=== PATIENT | female | born 1955 | race African-American/Black ===

== ENCOUNTER 2019-12-08 20:26 | Emergency (ER) | payer SELFPAY ==
--- NOTE | 2019-12-08 23:03 | ER Document Report ---
HPI - HPI Time Seen by Provider: 12/08/19 23:01 Notes: 64-year-old female patient with history of stroke presenting to the emergency department requesting Titus catheter removal. Patient [id number] accompanies her to the ED. She states they just drove in from [place], the Titus was place d due to the long car ride. Their doctor in [place] told him to come to the emergency room to have the Titus removed. Patient is moving here permanently. They are also requesting recommendation for primary care provider. Patient denies any acute complaints today. States she is feeling well. - ROS Systems Reviewed and Negative: Yes All other systems reviewed and negative Past Medical History - General Information source: Patient - Social History Smoking Status: Never Smoker Frequency of alcohol use: None Drug Abuse: None Family History: Reviewed & Not Pertinent Vertical Provider Document - CONSTITUTIONAL Notes: PHYSICAL EXAMINATION: GENERAL: Well-appearing, well-nourished and in no acute distress. HEAD: Atraumatic, normocephalic. EYES: Pupils equal round extraocular movements intact, conjunctiva are normal. ENT: Nares patent NECK: Normal range of motion LUNGS: No respiratory distress Musculoskeletal: Normal range of motion NEUROLOGICAL: Normal speech. PSYCH: Normal mood, normal affect. SKIN: Warm, Dry, normal turgor, no rashes or lesions noted. Course - Re-evaluation Re-evalutation: Patient appears well, nontoxic. She is here for Titus catheter removal. The catheter was placed for a long distance transport due to patient's immobility issues. The Titus catheter will be removed at this time. Recommendations were made for primary care providers in the local area. ED return precautions discussed. - Vital Signs Vital signs: Temp Pulse Resp BP Pulse Ox 98.2 F 115 H 20 145/100 H 94 12/08/19 21:01 12/08/19 21:01 12/08/19 21:01 12/08/19 21:01 12/08/19 21:01 Discharge - Discharge Clinical Impression: Encounter for Titus catheter removal Condition: Stable Disposition: HOME, SELF-CARE Additional Instructions: Please call Wednesday to establish care with a primary care provider. Return to the emergency department with any new or worsening concerns. Referrals: OSEI CHANEY MD [ACTIVE STAFF] - Follow up as needed AARTI MORRISON MD [ACTIVE STAFF] - Follow up as needed
[2019-12-08 23:17] VITALS: BP 134/81
== END 2019-12-08 23:16 | disposition home or self-care (01) ==
LOC: ER 20:26
DX: Z46.6 Encounter for fitting and adjustment of urinary device (principal)
CPT/HCPCS: 99283

== ENCOUNTER 2019-12-20 19:53 | Observation (INO) | payer MEDICAID, MEDICARE ==
--- NOTE | 2019-12-20 20:21 | ER Document Report ---
ED Cardiac - General Chief Complaint: Chest Pain > 30 Stated Complaint: CHEST PAIN Time Seen by Provider: 12/20/19 20:18 Mode of Arrival: Ambulatory Information source: Patient Notes: Last ED visit Emergency Provider: SALMA CRUZ Date: 12/08/19 23:01 Initialization Date: 12/08/19 23:01 HPI - HPI Time Seen by Provider: 12/08/19 23:01 Notes: 64-year-old female patient with history of stroke presenting to the emergency department requesting Titus catheter removal. Patient [id number] accompanies her to the ED. She states they just drove in from [place], the Titus was placed due to the long car ride. Their doctor in [place] told him to come to the emergency room to have the Titus removed. Patient is moving here permanently. They are also requesting recommendation for primary care provider. Patient denies any acute complaints today. States she is feeling well. - ROS Systems Reviewed and Negative: Yes All other systems reviewed and negative Past Medical History - General Information source: Patient - Social History Smoking Status: Never Smoker Frequency of alcohol use: None Drug Abuse: None Family History: Reviewed & Not Pertinent Vertical Provider Document - CONSTITUTIONAL Notes: PHYSICAL EXAMINATION: GENERAL: Well-appearing, well-nourished and in no acute distress. HEAD: Atraumatic, normocephalic. EYES: Pupils equal round extraocular movements intact, conjunctiva are normal. ENT: Nares patent NECK: Normal range of motion LUNGS: No respiratory distress Musculoskeletal: Normal range of motion NEUROLOGICAL: Normal speech. PSYCH: Normal mood, normal affect. SKIN: Warm, Dry, normal turgor, no rashes or lesions noted. MY HISTORY 64-year-old black female arrives by EMS with chief complaint of chest pain which began around 1839 shortly after eating her supper which consisted of beans and chocolate pudding. Her chest pain was 5 out of 5 and was substernal which has migrated to epigastric area according to patient and nursing staff. Patient has left-sided weakness secondary to a CVA that occurred a few months prior leaving her with sensation to her left upper and lower extremities but no movement. Patient has full range of motion of her right arm and right leg. Patient reports she been without any blood thinner or any other medications since late last month when she moved from [place] to this area where she has been staying with her [id number]. Patient presents with tachycardia at 152 atrial fibrillation.. Patient denies any history of atrial fibrillation in the past. As a historian I suspect the patient presents with some lacking information. She had some wheezing shortly before supper and had a albuterol treatment which helped with her wheezing. She was clear to auscultation upon my initial exam at 2030 TRAVEL OUTSIDE OF THE [place] IN LAST 30 DAYS: No - HPI Patient complains to provider of: Chest pain, Chest tightness, Palpitations Use of: Other - albuterol Was the onset of pain: Sudden Chest pain location: Substernal Quality of pain: Moderate Severity now: Severe Pain level currently: 5 - Related Data Allergies/Adverse Reactions: baclofen Allergy (Verified 12/20/19 20:12) morphine Allergy (Verified 12/20/19 20:12) Past Medical History - General Information source: Patient - Social History Smoking Status: Former Smoker Cigarette use (# per day): No Chew tobacco use (# tins/day): No Smoking Education Provided: No Frequency of alcohol use: None Drug Abuse: None Lives with: Family Family History: Reviewed & Not Pertinent Patient has suicidal ideation: No Patient has homicidal ideation: No - Past Medical History Cardiac Medical History: Reports: Hx Atrial Fibrillation, Hx Hypertension Pulmonary Medical History: Reports: Hx Asthma Endocrine Medical History: Reports: Hx Diabetes Mellitus Type 2 Past Surgical History: Reports: Hx Neurologic Surgery - piece of right skull removed, Hx Tubal Ligation Review of Systems - Review of Systems Constitutional: See HPI, Weakness EENT: No symptoms reported Cardiovascular: See HPI, Chest pain, Palpitations, Heart racing Respiratory: See HPI, Wheezing Gastrointestinal: See HPI, Abdominal pain Genitourinary: No symptoms reported Female Genitourinary: No symptoms reported Musculoskeletal: No symptoms reported Skin: No symptoms reported Hematologic/Lymphatic: No symptoms reported Neurological/Psychological: No symptoms reported Physical Exam - Vital signs Vitals: Resp BP Pulse Ox 17 132/91 H 95 12/20/19 20:00 12/20/19 20:00 12/20/19 20:00 Interpretation: Tachycardic - General General appearance: Alert, Other - morbidly obese - HEENT Head: Normocephalic, Atraumatic Eyes: Normal Pupils: PERRL - Respiratory Respiratory status: No respiratory distress Chest status: Nontender Breath sounds: Normal Chest palpation: Normal - Cardiovascular Rhythm: Tachycardia Heart sounds: Normal auscultation Murmur: No - Abdominal Inspection: Normal Distension: No distension Bowel sounds: Normal Tenderness: Nontender Organomegaly: No organomegaly - Rectal Hemorrhoids: Other - deferred - Genitourinary Bimanuel exam: Other - deferred - Back Back: Normal, Nontender - Extremities General upper extremity: Nontender, Normal color, Normal temperature, Other - 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 No: Mimi's sign - Neurological Neuro grossly intact: Yes Cognition: Normal Orientation: AAOx4 Aletha Coma Scale Eye Opening: Spontaneous [place] Coma Scale Verbal: Oriented Aletha Coma Scale Motor: None - Left upper and left lower extremity with sensation but no range of motion limited motor with right upper extremity right lower extremity within normal limits good strength [place] Coma Scale Total: 10 Speech: Normal Motor strength normal: RUE, RLE. No: LUE, LLE Additional motor exam normals: Weakness Sensory: Normal - Psychological Associated symptoms: Normal affect, Normal mood - Skin Skin Temperature: Warm Skin Moisture: Dry Skin Color: Normal Course - Vital Signs Vital signs: Temp Pulse Resp BP Pulse Ox 97.3 F 18 154/89 H 95 12/20/19 20:10 12/20/19 21:46 12/20/19 21:46 12/20/19 21:46 - Laboratory Result Diagrams: 12/20/19 20:20 12/20/19 20:20 Laboratory results interpreted by me: 12/20/19 12/20/19 20:20 20:20 Hct 35.4 L RDW 17.5 H Potassium 3.4 L Glucose 132 H Creatine Kinase 23 L - Diagnostic Test Radiology reviewed: Reports reviewed - EKG Interpretation by Me EKG shows normal: Sinus rhythm Rate: Tachycardia - Heart rate ventricular 03 24- with atrial fibrillation and this was read by myself as well as the computer with the EKG. Rhythm: A.Fib Critical Care Note - Critical Care Note Comments: Patient's sister arrives with her medicine list which includes Tylenol albuterol aspirin Keflex Senokot vitamin D3 Singulair Protonix MiraLAX pravastatin sucralfate venlafaxine HCTZ metoprolol and she reports her diltiazem ER 180 per 24 hours" was stopped when she was discharged from hospital"; also patient has not on any other blood thinner except for aspirin. I advised patient and sister on selection of blood thinners she may use. I discussed with Dr Calderon at 2300 for consult.I had already spoken with Halle just prior. Discharge - Discharge Clinical Impression: Chest pain at rest Atrial fibrillation Qualifiers: Atrial fibrillation type: unspecified Qualified Code(s): I48.91 - Unspecified atrial fibrillation Condition: Good Disposition: ADMITTED INPATIENT Admitting Provider: Adrian (Hospitalist) Unit Admitted: Telemetry Additional Instructions: Follow-up with personal doctor and take your medicines as directed to include diltiazem ER 180/per 24 hours. Return to ER symptoms persist or return encourage fluids Prescriptions: Diltiazem HCl [Diltiazem ER] 180 mg PO DAILY #30 tab.er.24h
[2019-12-20] MEDS ORDERED: NORMAL SALINE 1000 ML 1,000 ML IV ONE (20:31)
[2019-12-20] MEDS ORDERED: DILTIAZEM HCL INJ 25 MG/5 ML VIAL IV ONE ×2 (20:32→22:49)
[2019-12-20] MEDS ORDERED: ENOXAPARIN SODIUM INJ 120 MG/0.8 ML DISP.SYRIN SUBCUT ONE (20:34)
[2019-12-20] MEDS ORDERED: ASPIRIN 81 MG TABLET, CHEWABLE PO ONE (20:35)
[2019-12-20 20:39] LABS: ABSOLUTE BASOPHILS # (AUTO) 0.1 10^3/uL (0.0-0.2); ABSOLUTE EOSINOPHILS # (AUTO) 0.6 10^3/uL (0.0-0.6); ABSOLUTE LYMPHOCYTES (AUTO) 3.9 10^3/uL (0.5-4.7); ABSOLUTE MONOCYTES (AUTO) 0.7 10^3/uL (0.1-1.4); ABSOLUTE NEUT (AUTO) 4.6 10^3/uL (1.7-8.2); BASOPHILS % (AUTO) 0.6 % (0-2); EOSINOPHILS % (AUTO) 5.7 % (0-6); HEMATOCRIT 35.4 % (36.0-47.0); LYMPHOCYTES % (AUTO) 40.1 % (13-45); MEAN CORPUSCULAR HEMOGLOBIN 28.4 pg (27.0-33.4); MEAN CORPUSCULAR HGB CONC 33.8 g/dL (32.0-36.0); MEAN CORPUSCULAR VOLUME 84 fl (80-97); MONOCYTES % (AUTO) 7.2 % (3-13); PLATELET COUNT 325 10^3/uL (150-450); RED BLOOD COUNT 4.22 10^6/uL (3.72-5.28); RED CELL DISTRIBUTION WIDTH 17.5 % (11.5-14.0); SEGMENTED NEUTROPHILS % (AUTO) 46.4 % (42-78); TOTAL CELLS COUNTED % (AUTO) 100 %; WHITE BLOOD COUNT 9.8 10^3/uL (4.0-10.5)
[2019-12-20 20:45] LABS: INTERNATIONAL RATION (INR) 1.05; PARTIAL THROMBOPLASTIN TIME 30.1 SEC (23.5-35.8); PROTHROMBIN TIME 13.9 SEC (11.4-15.4)
[2019-12-20 21:05] LABS: ALBUMIN 3.6 g/dL (3.5-5.0); ALKALINE PHOSPHATASE 95 U/L (38-126); ANION GAP 12 (5-19); ASPARTATE AMINO TRANSFERASE 27 U/L (14-36); BILIRUBIN,DIRECT 0.2 mg/dL (0.0-0.4); BILIRUBIN,TOTAL 0.4 mg/dL (0.2-1.3); BLOOD UREA NITROGEN 11 mg/dL (7-20); CALCIUM 9.4 mg/dL (8.4-10.2); CARBON DIOXIDE 28 mmol/L (22-30); CHLORIDE 98 mmol/L (98-107); CREATINE KINASE 23 U/L (30-135); GLUCOSE 132 mg/dL (75-110); POTASSIUM 3.4 mmol/L (3.6-5.0); TOTAL PROTEIN 7.1 g/dL (6.3-8.2)
[2019-12-20 21:17] LABS: CREATINE KINASE MB 0.32 ng/mL (<4.55)
[2019-12-20 21:21] LABS: TROPONIN I < 0.012 ng/mL
[2019-12-20] MEDS ORDERED: SIMETHICONE 80 MG TAB.CHEW PO ONE (21:32)
--- NOTE | 2019-12-20 21:37 | RADIOLOGY REPORT (SQ) ---
EXAM DESCRIPTION: XR CHEST 1 VIEW COMPLETED DATE/TME: 12/20/2019 20:22 CLINICAL HISTORY: 64 years, Female, cp COMPARISON: None. NUMBER OF VIEWS: One TECHNIQUE: Single frontal view of the chest was obtained portably LIMITATIONS: None. FINDINGS: Cardiac and mediastinal contours are normal. Lungs are clear. No pleural effusion or pneumothorax. IMPRESSION: No acute disease. copyright 2010 [employer] (formerly [employer] All Rights Reserved
--- NOTE | 2019-12-20 21:41 | RADIOLOGY REPORT (SQ) ---
CLINICAL INDICATION: abd pain. TECHNIQUE: 2 image(s) of the abdomen. Supine imaging COMPARISON: None. FINDINGS: A nonspecific gas pattern is identified. No evidence of high grade obstruction. No evidence of free air. Postsurgical change from tubal ligation. Mild hard stool right colon. IMPRESSION: No acute intra-abdominal process is identified.
[2019-12-20] MEDS ORDERED: DILTIAZEM HCL 180 MG CAPSULE.CR PO ONE (22:44)
[2019-12-20 22:58] LABS: APPEARANCE,URINE SLIGHTLY-CLOUDY; BILIRUBIN,URINE NEGATIVE (NEGATIVE); COLOR,URINE YELLOW; GLUCOSE, URINE NEGATIVE (NEGATIVE); KETONES,URINE NEGATIVE (NEGATIVE); LEUKOCYTE ESTERASE,URINE NEGATIVE (NEGATIVE); NITRITE,URINE NEGATIVE (NEGATIVE); PROTEIN,URINE NEGATIVE (NEGATIVE); URINE SPECIFIC GRAVITY 1.016; UROBILINOGEN,URINE NEGATIVE mg/dL (<2.0)
[2019-12-20] MEDS ORDERED: OXYCODONE-ACETAMINOPHEN 5-325 MG TABLET PO ONE (23:09)
[2019-12-21] MEDS ORDERED: DILTIAZEM HCL/D5W 125 MG/125 ML RTUINJ IV PRN ×2 (04:39→12:53)
[2019-12-21 05:53] LABS: INTERNATIONAL RATION (INR) 1.15; PROTHROMBIN TIME 14.9 SEC (11.4-15.4)
[2019-12-21 05:54] LABS: PARTIAL THROMBOPLASTIN TIME 36.2 SEC (23.5-35.8)
[2019-12-21 06:27] LABS: CREATINE KINASE < 20 U/L (30-135)
[2019-12-21 06:33] LABS: CREATINE KINASE MB 0.29 ng/mL (<4.55); NT PRO BNP 635 pg/mL (<125)
[2019-12-21 06:36] LABS: TROPONIN I < 0.012 ng/mL
[2019-12-21 06:38] LABS: FREE T4 (FREE THYROXINE) 1.47 ng/dL (0.78-2.19)
[2019-12-21 06:53] LABS: THYROID STIMULATING HORMONE 1.3 uIU/mL (0.47-4.68)
--- NOTE | 2019-12-21 08:50 | EKG REPORT ---
SEVERITY:- ABNORMAL ECG - ATRIAL FIBRILLATION, V-RATE 110-192 NONSPECIFIC T ABNORMALITIES, LATERAL LEADS : Confirmed by: Candy Felipe MD 21-Dec-2019 08:49:52
[2019-12-21] MEDS: ENOXAPARIN SODIUM INJ 40 MG/0.4 ML DISP.SYRIN SUBCUT SCH (10:12)
--- NOTE | 2019-12-21 10:59 | PDOC CONSULTATION ---
Consultation Consult Date: 12/21/19 Attending physician:: RAFA CANO JR Provider Consulted: ALISHA BAÑUELOS Consult reason:: Rapid a-fib History of Present Illness Admission Date/PCP: 12/20/19 23:30 History of Present Illness: YESENIA HIGGINS is a 64 year old female with history of stroke on 12/04/2019 secondary to right M1 occlusion initially treated with IV TPA followed by mechanical thrombectomy, complicated by cerebral edema and midline shift which was treated with decompressive hemicraniectomy on 12/05/2019, hypertension, hyperlipidemia, diabetes, asthma, arthritis, seasonal allergies, tobacco use but quit 5 months ago, paroxysmal atrial fibrillation who is consulted to our service for further evaluation and treatment of atrial fibrillation. The ingrid salas came to the emergency room by ambulance complaining of chest pain after eating supper. She describes her pain as sharp in nature, substernal in location, lasting approximately 10 minutes, with radiation to the epigastrium and she thought it was from reflux disease, associated with shortness of breath and without diaphoresis, palpitations, syncope or presyncope. In the emergency room she was found to be in rapid atrial fibrillation and was started on a Cardizem drip. This morning she continues to be at her baseline and denies new cardiac complaints. She denies recurrence of chest pain. Unfortunately she continues to be in rapid atrial fibrillation. Physical exam on 12/21/2019: GENERAL: Pleasant and conversational. Oriented x3 with normal mood. Not in acute distress. Well groomed and well developed. HEENT: Normocephalic, atraumatic. Pupils equal. Sclerae anicteric. Orop harynx moist. NECK: No JVD. No carotid bruits. LUNGS: Clear to auscultation bilaterally. Normal respiratory effort without the use of accessory muscles or intercostal retractions. CARDIOVASCULAR: Tachycardic, irregularly irregular rate and rhythm, normal S1 and S2 without murmurs, rubs, or gallops. PMI not displaced. ABDOMEN: No masses or tenderness to palpation. No bruit. No splenomegaly or hepatomegaly. No abdominal aorta bruit noted. EXTREMITIES: No edema, no cyanosis, no clubbing. +2 pulses femoral and pedal pulses bilaterally. SKIN: No lesions or rashes. MUSCULOSKELETAL: No chest tenderness to palpation. Past Medical History Cardiac Medical History: Reports: Atrial Fibrillation, Hypertension Pulmonary Medical History: Reports: Asthma Endocrine Medical History: Reports: Diabetes Mellitus Type 2 Psychiatric Medical History: Reports: Depression Past Surgical History Past Surgical History: Reports: Tubal Ligation Social History Lives with: Family Smoking Status: Former Smoker Cigarettes Packs Per Day: 0.5 Electronic Cigarette use?: Yes Number of Years Smokin Frequency of Alcohol Use: None Hx Recreational Drug Use: No Drugs: None Hx Prescription Drug Abuse: No Family History Family History: Reviewed & Not Pertinent Parental Family History Reviewed: Yes Children Family History Reviewed: Yes Sibling(s) Family History Reviewed.: Yes Medication/Allergy Home Medications: Diltiazem HCl [Diltiazem ER] 180 mg PO DAILY #30 tab.er.24h 12/20/19 Allergies/Adverse Reactions: baclofen Allergy (Verified 12/20/19 20:12) morphine Allergy (Verified 12/20/19 20:12) Physical Exam Vital Signs: Temp Pulse Resp BP Pulse Ox 98.2 F 104 H 28 H 123/68 97 12/21/19 04:13 12/21/19 04:13 12/21/19 04:13 12/21/19 04:13 12/21/19 04:13 Intake & Output 12/19/19 12/20/19 12/21/19 06:59 06:59 06:59 Intake Total 1000 Balance 1000 Weight 111.6 kg Results Laboratory Results: 12/20/19 20:20 12/20/19 20:20 12/20/19 12/20/19 12/20/19 20:20 20:20 22:44 WBC 9.8 RBC 4.22 Hgb 12.0 Hct 35.4 L MCV 84 MCH 28.4 MCHC 33.8 RDW 17.5 H Plt Count 325 Seg Neutrophils % 46.4 Sodium 137.8 Potassium 3.4 L Chloride 98 Carbon Dioxide 28 Anion Gap 12 BUN 11 Creatinine 0.71 Est GFR ( Amer) > 60 Glucose 132 H Calcium 9.4 Magnesium Total Bilirubin 0.4 AST 27 Alkaline Phosphatase 95 Total Protein 7.1 Albumin 3.6 Urine Color YELLOW Urine Appearance SLIGHTLY-CLOUDY Urine pH 5.0 Ur Specific Rover 1.016 Urine Protein NEGATIVE Urine Glucose (UA) NEGATIVE Urine Ketones NEGATIVE Urine Blood NEGATIVE Urine Nitrite NEGATIVE Ur Leukocyte Esterase NEGATIVE Urine WBC (Auto) 2 Urine RBC (Auto) 1 12/21/19 05:38 WBC RBC Hgb Hct MCV MCH MCHC RDW Plt Count Seg Neutrophils % Sodium Potassium Chloride Carbon Dioxide Anion Gap BUN Creatinine Est GFR ( Amer) Glucose Calcium Magnesium 1.6 Total Bilirubin AST Alkaline Phosphatase Total Protein Albumin Urine Color Urine Appearance Urine pH Ur Specific Rover Urine Protein Urine Glucose (UA) Urine Ketones Urine Blood Urine Nitrite Ur Leukocyte Esterase Urine WBC (Auto) Urine RBC (Auto) 12/20/19 12/20/19 12/20/19 20:20 20:20 23:27 Creatine Kinase 23 L CK-MB (CK-2) 0.32 Troponin I < 0.012 < 0.012 NT-Pro-B Natriuret Pep 12/21/19 12/21/19 05:38 05:38 Creatine Kinase < 20 L CK-MB (CK-2) 0.29 Troponin I < 0.012 NT-Pro-B Natriuret Pep 635 H Impressions: Chest X-Ray 12/20/19 20:22 IMPRESSION: No acute disease. copyright 2011 [employer]- All Rights Reserved KUB X-Ray 12/20/19 20:31 IMPRESSION: No acute intra-abdominal process is identified. 12/20/19 20:20 12/20/19 20:20 MCV 84 fl (80-97) 12/20/19 20:20 MCH 28.4 pg (27.0-33.4) 12/20/19 20:20 MCHC 33.8 g/dL (32.0-36.0) 12/20/19 20:20 RDW 17.5 % (11.5-14.0) H 12/20/19 20:20 Seg Neutrophils % 46.4 % (42-78) 12/20/19 20:20 Chloride 98 mmol/L (98-107) 12/20/19 20:20 Carbon Dioxide 28 mmol/L (22-30) 12/20/19 20:20 Anion Gap 12 (5-19) 12/20/19 20:20 Est GFR ( Amer) > 60 (>60) 12/20/19 20:20 Glucose 132 mg/dL (75-110) H 12/20/19 20:20 Calcium 9.4 mg/dL (8.4-10.2) 12/20/19 20:20 Magnesium 1.6 mg/dL (1.6-2.3) 12/21/19 05:38 Total Bilirubin 0.4 mg/dL (0.2-1.3) 12/20/19 20:20 AST 27 U/L (14-36) 12/20/19 20:20 Alkaline Phosphatase 95 U/L (38-126) 12/20/19 20:20 Total Protein 7.1 g/dL (6.3-8.2) 12/20/19 20:20 Albumin 3.6 g/dL (3.5-5.0) 12/20/19 20:20 Urine Color YELLOW 12/20/19 22:44 Urine Appearance SLIGHTLY-CLOUDY 12/20/19 22:44 Urine pH 5.0 (5.0-9.0) 12/20/19 22:44 Ur Specific Rover 1.016 12/20/19 22:44 Urine Protein NEGATIVE mg/dL (NEGATIVE) 12/20/19 22:44 Urine Glucose (UA) NEGATIVE mg/dL (NEGATIVE) 12/20/19 22:44 Urine Ketones NEGATIVE mg/dL (NEGATIVE) 12/20/19 22:44 Urine Blood NEGATIVE (NEGATIVE) 12/20/19 22:44 Urine Nitrite NEGATIVE (NEGATIVE) 12/20/19 22:44 Ur Leukocyte Esterase NEGATIVE (NEGATIVE) 12/20/19 22:44 Urine WBC (Auto) 2 /HPF 12/20/19 22:44 Urine RBC (Auto) 1 /HPF 12/20/19 22:44 12/20/19 12/20/19 12/20/19 20:20 20:20 23:27 Creatine Kinase 23 L CK-MB (CK-2) 0.32 Troponin I < 0.012 < 0.012 NT-Pro-B Natriuret Pep 12/21/19 12/21/19 05:38 05:38 Creatine Kinase < 20 L CK-MB (CK-2) 0.29 Troponin I < 0.012 NT-Pro-B Natriuret Pep 635 H Current Medication List Generic Name Dose Route Start Last Admin Trade Name Freq PRN Reason Stop Dose Admin Enoxaparin Sodium 40 mg 12/21/19 10:00 Lovenox Inj 40 Mg/0.4 Ml Disp.Syrin SUBCUT 01/20/20 09:59 DAILY NAEEM Diltiazem HCl 125 mg in 125 mls @ 0 mls/hr 12/21/19 04:39 12/21/19 05:17 Cardizem Rtu Inj 125 Mg-D5w 125 Ml Premix IV 01/20/20 04:38 5 mls/hr CONTINUOUS PRN 5 mls/hr THIS MED IS NOT "PRN" Administration Protocol Titrate Discontinued Medications Generic Name Dose Route Start Last Admin Trade Name Beth PRN Reason Stop Dose Admin Aspirin 324 mg 12/20/19 20:35 12/20/19 20:46 Aspirin 81 Mg Chewable Tablet PO 12/20/19 20:36 324 mg NOW ONE Administration Diltiazem HCl 5 mg 12/20/19 20:32 12/20/19 20:47 Cardizem Inj 25 Mg/5 Ml Vial IV 12/20/19 20:33 5 mg NOW ONE Administration Diltiazem HCl 180 mg 12/20/19 22:44 12/20/19 22:51 Cardizem Cd 180 Mg Capsule PO 12/20/19 22:45 Not Given NOW ONE Diltiazem HCl 10 mg 12/20/19 22:49 12/20/19 23:01 Cardizem Inj 25 Mg/5 Ml Vial IV 12/20/19 22:50 10 mg NOW ONE Administration Enoxaparin Sodium 120 mg 12/20/19 20:34 12/20/19 20:49 Lovenox Inj 120 Mg/0.8 Ml Disp.Syrin SUBCUT 12/20/19 20:35 120 mg NOW ONE Administration Sodium Chloride 1,000 mls @ 0 mls/hr 12/20/19 20:31 12/21/19 00:16 Nacl 0.9% 1000 Ml Iv Soln IV 12/20/19 20:32 Infused BOLUS ONE Infusion Wide Open Oxycodone/Acetaminophen 1 tab 12/20/19 23:09 12/20/19 23:32 Percocet 5-325 Mg Tablet PO 12/20/19 23:10 1 tab NOW ONE Administration Simethicone 160 mg 12/20/19 21:32 12/20/19 21:53 Mylicon 80 Mg Chewable Tablet PO 12/20/19 21:33 160 mg NOW ONE Administration Assessment & Plan - Diagnosis (1) Atrial fibrillation Qualifiers: Atrial fibrillation type: unspecified Qualified Code(s): I48.91 - Unspecified atrial fibrillation Is this a current diagnosis for this admission?: Yes Plan: The patient continues to be in rapid atrial fibrillation despite maximal doses of diltiazem IV. Given her cardiac history she would benefit more from a beta- dong at this point. She should be anticoagulated however when she was last evaluated in November 2019 due to her stroke she was not cleared for full anticoagulation. Recommendations: -Discontinue diltiazem drip. -Start Lopressor 50 mg p.o. every 6 hours. -Hold anticoagulation until cleared by neurology. -Restart outpatient medical regimen except diltiazem, modafinil. -DVT prophylaxis. -Echocardiogram. (2) Elevated brain natriuretic peptide (BNP) level Plan: Likely secondary to her atrial fibrillation. There is no clinical or physical exam evidence of heart failure. The patient is resting comfortably on her back without dyspnea. Her chest x-ray did not show evidence of heart failure. Recommendations: -Continue to follow clinically.
[2019-12-21] MEDS ORDERED: METOPROLOL TARTRATE 50 MG TABLET PO SCH (11:00)
[2019-12-21] MEDS: ASPIRIN 325 MG TABLET PO SCH (12:55)
[2019-12-21 16:14] LABS: CREATINE KINASE MB 0.34 ng/mL (<4.55)
[2019-12-21 16:20] LABS: TROPONIN I < 0.012 ng/mL
[2019-12-21] MEDS: METOPROLOL TARTRATE 50 MG TABLET PO SCH (18:03)
--- NOTE | 2019-12-21 20:35 | XCELERA REPORT ---
[address] [address] Transthoracic Echocardiogram Report Name: YESENIA HIGGINS Age: 64 yrs Gender: Female : 1955 Patient Status: Inpatient Patient Location: [address] [place] [address] Study Date: 12/21/2019 05:27 PM Height: 65 in Weight: 246 lb BSA: 2.2 m2 Procedure: A complete two-dimensional transthoracic echocardiogram was performed (2D, M-mode, spectral and color flow Doppler). The study was technically limited with all images being suboptimal in quality. The subcostal views were difficult to obtain and are suboptimal in quality. Reason For Study: Atrial fibrillation Ordering Physician: ALISHA BAÑUELOS Performed By: Gwen Andre Interpretation Summary The left ventricle is normal in size. Left ventricular systolic function is normal. The Ejection Fraction estimate is 60-65%. LV diastolic function could not be adequately assessed due to atrial fibrilation. The left ventricular wall motion is normal. There is no thrombus. Cannot r/o a small, inlet VSD with left to right shunt. Recommend OLLIE for better visualization and characterization. Mild MR, mild AI, mild TR, mild PI. No prior studies for comparison. MMode/2D Measurements & Calculations RVDd: 2.9 cm LVIDd: 5.2 cm FS: 44.2 % Ao root diam: 3.1 cm IVSd: 1.2 cm LVIDs: 2.9 cm EDV(Teich): Ao root area: 131.8 ml LVPWd: 1.1 cm 7.6 cm2 ESV(Teich): 32.9 mlLA dimension: 3.0 cm EF(Teich): 75.0 % LVLd ap4: 5.5 cm SV(MOD-sp4): EDV(MOD-sp4): 36.0 ml 54.0 ml LVLs ap4: 5.0 cm ESV(MOD-sp4): 18.0 ml EF(MOD-sp4): 66.7 % Doppler Measurements & Calculations MV E max shahnaz: MV P1/2t max shahnaz: Ao V2 max: AI max shahnaz: 107.0 cm/sec 116.7 cm/sec 101.4 cm/sec 349.9 cm/sec MV A max shahnaz: MV P1/2t: 62.6 msec Ao max PG: AI max P.0 cm/sec 4.1 mmHg 49.0 mmHg MVA(P1/2t): 3.5 cm2 MV E/A: 3.7 MV dec slope: AI dec slope: 546.5 cm/sec2 159.9 cm/sec2 MV dec time: AI P1/2t: 0.18 sec 640.9 msec LV V1 max PG: PA V2 max: PI end-d shahnaz: TR max shahnaz: 2.9 mmHg 86.4 cm/sec 162.9 cm/sec 246.1 cm/sec LV V1 max: PA max P.0 mmHg TR max P.9 cm/sec 24.2 mmHg AV P1/2t-pr_phl: MV P1/2t-pr_phl: 640.9 msec 62.6 msec Left Ventricle The left ventricle is normal in size. Left ventricular systolic function is normal. The Ejection Fraction estimate is 60-65%. LV diastolic function could not be adequately assessed due to atrial fibrilation. The left ventricular wall motion is normal. There is no thrombus. Cannot r/o a small, inlet VSD with left to right shunt. Recommend OLLIE for better visualization and characterization. Right Ventricle The right ventricle is normal in size, thickness and function. The right ventricular systolic function is normal. Atria The right atrium is normal. The left atrial size is normal. Mitral Valve The mitral valve is grossly normal. There is no evidence of mitral valve prolapse. There is no mitral valve stenosis. There is a mild amount of mitral regurgitation. Aortic Valve The aortic valve is grossly normal. There is no aortic valvular vegetation. There is no aortic valve stenosis. There is a mild amount of aortic regurgitation. Tricuspid Valve The tricuspid valve is not well visualized, but is grossly normal. There is no tricuspid valve prolapse. There is no tricuspid stenosis. There is a mild amount of tricuspid regurgitation. Pulmonic Valve The pulmonic valve is not well seen, but is grossly normal. There is no pulmonic valvular stenosis. There is a mild amount of pulmonic regurgitation. Effusions There is no pericardial effusion. There is no pleural effusion. : ALISHA BAÑUELOS, Alisha
[2019-12-21 21:44] LABS: CREATINE KINASE MB 0.37 ng/mL (<4.55)
[2019-12-21 21:48] LABS: TROPONIN I < 0.012 ng/mL
--- NOTE | 2019-12-21 22:17 | PDOC H&P ---
History of Present Illness Admission Date/PCP: 12/20/19 23:30 History of Present Illness: YESENIA HIGGINS is a 64 year old female, She has a history of stroke on 12/04/2019 she just relocated from [place] she had intravenous TPA, thrombectomy complicated by cerebral edema and midline shift this was treated subsequently with decompressive hemicraniotomy on 12/05/2019. She came to the e mergency room for evaluation of chest pain, palpitation, paroxysmal atrial fibrillation. Past Medical History Cardiac Medical History: Reports: Atrial Fibrillation, Hypertension Pulmonary Medical History: Reports: Asthma Neurological Medical History: Reports: Ischemic CVA Endocrine Medical History: Reports: Diabetes Mellitus Type 2 Psychiatric Medical History: Reports: Depression Past Surgical History Past Surgical History: Reports: Tubal Ligation Social History Lives with: Family Smoking Status: Former Smoker Cigarettes Packs Per Day: 0.5 Electronic Cigarette use?: Yes Number of Years Smokin Frequency of Alcohol Use: None Hx Recreational Drug Use: No Drugs: None Hx Prescription Drug Abuse: No Family History Family History: Reviewed & Not Pertinent Parental Family History Reviewed: Yes Children Family History Reviewed: Yes Sibling(s) Family History Reviewed.: Yes Medication/Allergy Home Medications: Acetaminophen [Tylenol 325 mg Tablet] 650 mg PO Q4HP PRN 12/21/19 Albuterol Sulfate [Ventolin Hfa 8 gm Mdi] 2 puff IH TID 12/21/19 Aspirin [Aspirin 325 mg Tablet] 325 mg PO DAILY 12/21/19 Cephalexin Monohydrate [Keflex 250 mg Capsule] 250 mg PO QID MDD FOR 7 DAYS 12/21/19 Hydrochlorothiazide [Hydrodiuril 25 mg Tablet] 12.5 mg PO DAILY 12/21/19 Metoprolol Tartrate [Lopressor 25 mg Tablet] 25 mg PO BID 12/21/19 Montelukast Sodium [Singulair 10 mg Tablet] 10 mg PO QHS 12/21/19 Pantoprazole Sodium [Protonix [address] Tablet] 40 mg PO QAM 12/21/19 Polyethylene Glycol 3350 [Miralax] 1 dose PO DAILY 12/21/19 Pravastatin Sodium 40 mg PO QHS 12/21/19 Sennosides/Docusate 8.6-50 mg [Senna Plus Tablet] 1 tab PO BID 12/21/19 Sucralfate [Carafate 1 gm Tablet] 1 gm PO QID 12/21/19 Venlafaxine HCl ER [Effexor Xr 75 mg Cap.sr] 75 mg PO DAILY 12/21/19 Allergies/Adverse Reactions: baclofen Allergy (Verified 12/20/19 20:12) morphine Allergy (Verified 12/20/19 20:12) Review of Systems Constitutional: ABSENT: chills, fever(s), headache(s), weight gain, weight loss Eyes: ABSENT: visual disturbances Ears: ABSENT: hearing changes Cardiovascular: PRESENT: chest pain, palpitations Respiratory: ABSENT: cough, hemoptysis Gastrointestinal: ABSENT: abdominal pain, constipation, diarrhea, hematemesis, hematochezia, nausea, vomiting Genitourinary: ABSENT: dysuria, hematuria Musculoskeletal: ABSENT: joint swelling Integumentary: ABSENT: rash, wounds Neurological: ABSENT: abnormal gait, abnormal speech, confusion, dizziness, focal weakness, syncope Psychiatric: ABSENT: anxiety, depression, homidical ideation, suicidal ideation Endocrine: ABSENT: cold intolerance, heat intolerance, menstrual abnormalities, polydipsia, polyuria Hematologic/Lymphatic: ABSENT: easy bleeding, easy bruising, lymphadenopathy Physical Exam Vital Signs: Temp Pulse Resp BP Pulse Ox 97.7 F 74 19 124/84 94 12/21/19 15:57 12/21/19 15:57 12/21/19 15:57 12/21/19 15:57 12/21/19 15:57 Intake & Output 12/20/19 12/21/19 12/22/19 06:59 06:59 06:59 Intake Total 1003 729 Balance 1003 729 Weight 111.6 kg General appearance: PRESENT: no acute distress Head exam: PRESENT: normocephalic, other - There is surgical scar on the left head Eye exam: PRESENT: PERRLA Mouth exam: PRESENT: moist, tongue midline Neck exam: PRESENT: full ROM Respiratory exam: PRESENT: clear to auscultation mey Cardiovascular exam: PRESENT: RRR, +S1, +S2 Vascular exam: PRESENT: normal capillary refill GI/Abdominal exam: PRESENT: normal bowel sounds, soft Rectal exam: PRESENT: deferred Neurological exam: PRESENT: alert, CN II-XII grossly intact Psychiatric exam: PRESENT: appropriate affect, normal mood Skin exam: PRESENT: dry, intact, warm Results Laboratory Results: 12/20/19 20:20 12/20/19 20:20 12/20/19 12/21/19 12/21/19 22:44 05:38 05:38 Magnesium 1.6 TSH 1.30 Free T4 1.47 Urine Color YELLOW Urine Appearance SLIGHTLY-CLOUDY Urine pH 5.0 Ur Specific [place] 1.016 Urine Protein NEGATIVE Urine Glucose (UA) NEGATIVE Urine Ketones NEGATIVE Urine Blood NEGATIVE Urine Nitrite NEGATIVE Ur Leukocyte Esterase NEGATIVE Urine WBC (Auto) 2 Urine RBC (Auto) 1 12/20/19 12/20/19 12/20/19 20:20 20:20 23:27 Creatine Kinase 23 L CK-MB (CK-2) 0.32 Troponin I < 0.012 < 0.012 NT-Pro-B Natriuret Pep 12/21/19 12/21/19 12/21/19 05:38 05:38 14:47 Creatine Kinase < 20 L < 20 L CK-MB (CK-2) 0.29 Troponin I < 0.012 NT-Pro-B Natriuret Pep 635 H 12/21/19 12/21/19 12/21/19 14:47 20:56 20:56 Creatine Kinase < 20 L CK-MB (CK-2) 0.34 0.37 Troponin I < 0.012 < 0.012 NT-Pro-B Natriuret Pep Impressions: Chest X-Ray 12/20/19 20:22 IMPRESSION: No acute disease. copyright 2010 [employer]- All Rights Reserved KUB X-Ray 12/20/19 20:31 IMPRESSION: No acute intra-abdominal process is identified. Assessment & Plan - Diagnosis (1) Paroxysmal atrial fibrillation with rapid ventricular response Is this a current diagnosis for this admission?: Yes Plan: Patient treated with Cardizem infusion, presently rate controlled, not presently on anticoagulation because of recent intracranial surgery, she is to return to [place] for completion of the procedure (2) Chest pain at rest Is this a current diagnosis for this admission?: Yes - Time Time Spent: Greater than 70 Minutes Medications reviewed and adjusted accordingly: Yes Anticipated Discharge Disposition: Home, Self Care Anticipated Discharge Timeframe: within 72 hours - Inpatient Certification Based on my medical assessment, after consideration of the patient's comorbidities, presenting symptoms, or acuity I expect that the services needed warrant INPATIENT care.: Yes I certify that my determination is in accordance with my understanding of Medicare's requirements for reasonable and necessary INPATIENT services [42 CFR 412.3e].: Yes
[2019-12-22] MEDS: METOPROLOL TARTRATE 50 MG TABLET PO SCH ×4 (00:06→18:12)
[2019-12-22] MEDS: ACETAMINOPHEN 325 MG TABLET PO PRN ×2 (00:59→09:49)
[2019-12-22 06:51] LABS: ABSOLUTE EOSINOPHILS # (AUTO) 0.5 10^3/uL (0.0-0.6); ABSOLUTE LYMPHOCYTES (AUTO) 2.2 10^3/uL (0.5-4.7); ABSOLUTE MONOCYTES (AUTO) 0.5 10^3/uL (0.1-1.4); ABSOLUTE NEUT (AUTO) 3.4 10^3/uL (1.7-8.2); BASOPHILS % (AUTO) 0.6 % (0-2); EOSINOPHILS % (AUTO) 8.1 % (0-6); HEMATOCRIT 34.6 % (36.0-47.0); HEMOGLOBIN 11.7 g/dL (12.0-15.5); LYMPHOCYTES % (AUTO) 32.7 % (13-45); MEAN CORPUSCULAR HEMOGLOBIN 28.4 pg (27.0-33.4); MEAN CORPUSCULAR HGB CONC 33.9 g/dL (32.0-36.0); MEAN CORPUSCULAR VOLUME 84 fl (80-97); PLATELET COUNT 286 10^3/uL (150-450); RED BLOOD COUNT 4.13 10^6/uL (3.72-5.28); RED CELL DISTRIBUTION WIDTH 17.4 % (11.5-14.0); SEGMENTED NEUTROPHILS % (AUTO) 50.6 % (42-78); TOTAL CELLS COUNTED % (AUTO) 100 %; WHITE BLOOD COUNT 6.7 10^3/uL (4.0-10.5)
[2019-12-22 07:12] LABS: ALBUMIN 3.3 g/dL (3.5-5.0); ALKALINE PHOSPHATASE 92 U/L (38-126); ANION GAP 9 (5-19); ASPARTATE AMINO TRANSFERASE 24 U/L (14-36); BILIRUBIN,DIRECT 0.2 mg/dL (0.0-0.4); BILIRUBIN,TOTAL 0.5 mg/dL (0.2-1.3); BLOOD UREA NITROGEN 11 mg/dL (7-20); CALCIUM 9.6 mg/dL (8.4-10.2); CARBON DIOXIDE 30 mmol/L (22-30); CHLORIDE 100 mmol/L (98-107); CHOLESTEROL 139.85 mg/dL (0-200); GLUCOSE 114 mg/dL (75-110); POTASSIUM 3.5 mmol/L (3.6-5.0); TOTAL PROTEIN 6.7 g/dL (6.3-8.2); TRIGLYCERIDES 173 mg/dL (<150)
[2019-12-22 07:22] LABS: DIRECT LDL 77 mg/dL (<100)
[2019-12-22 07:34] LABS: VLDL CHOLESTEROL 34.6 mg/dL (10-31)
[2019-12-22] MEDS: PANTOPRAZOLE SODIUM 40 MG TABLET.DR PO SCH (09:45)
[2019-12-22] MEDS: ENOXAPARIN SODIUM INJ 40 MG/0.4 ML DISP.SYRIN SUBCUT SCH (09:45)
[2019-12-22] MEDS: ASPIRIN 325 MG TABLET PO SCH (09:45)
[2019-12-22] MEDS: ALBUTEROL SULFATE HFA (90 MCG/PUFF) 8 GM MDI IH SCH ×3 (09:46→18:13)
--- NOTE | 2019-12-22 10:55 | PDOC PROGRESS REPORT ---
Subjective Progress Note for:: 12/22/19 Subjective:: YESENIA HIGGINS is a 64 year old female with history of stroke on 12/04/2019 secondary to right M1 occlusion initially treated with IV TPA followed by mechanical thrombectomy, complicated by cerebral edema and midline shift which was treated with decompressive hemicraniectomy on 12/05/2019, hypertension, hyperlipidemia, diabetes, asthma, arthritis, seasonal allergies, tobacco use but quit 5 months ago, paroxysmal atrial fibrillation who is consulted to our service for further evaluation and treatment of atrial fibrillation. The patient came to the emergency room by ambulance complaining of chest pain after eating supper. She describes her pain as sharp in nature, substernal in location, lasting approximately 10 minutes, with radiation to the epigastrium and she thought it was from reflux disease, associated with shortness of breath and without diaphoresis, palpitations, syncope or presyncope. In the emergency room she was found to be in rapid atrial fibrillation and was started on a Cardizem drip. This morning she continues to be at her baseline and denies new cardiac complaints. She denies recurrence of chest pain. Unfortunately she continues to be in rapid atrial fibrillation. 12/22/2019: The patient had an uneventful night and feels better this morning. Her blood pressure is now at goal. She has received 3 doses of Lopressor 50 mg p.o. with an improvement in her ventricular response. Her telemetry shows A. fib with a significantly improved ventricular response. Physical exam on 12/22/2019: GENERAL: Pleasant and conversational. Oriented x3 with normal mood. Not in acute distress. Well groomed and well developed. HEENT: Normocephalic, atraumatic. Pupils equal. Sclerae anicteric. Oropharynx moist. NECK: No JVD. No carotid bruits. LUNGS: Clear to auscultation bilaterally. Normal respiratory effort without the use of accessory muscles or intercostal retractions. CARDIOVASCULAR: Irregularly irregular rate and rhythm, normal S1 and S2 without murmurs, rubs, or gallops. PMI not displaced. ABDOMEN: No masses or tenderness to palpation. No bruit. No splenomegaly or hepatomegaly. No abdominal aorta bruit noted. EXTREMITIES: No edema, no cyanosis, no clubbing. +2 pulses femoral and pedal pulses bilaterally. SKIN: No lesions or rashes. MUSCULOSKELETAL: No chest tenderness to palpation. Cardiac studies: Echocardiogram on 12/21/2019: -EF 60 to 65%. -No wall motion abnormalities. -Possible inlet VSD. -Mild MR, mild AI, mild TR, mild PI. Reason For Visit: ATRIAL FIBRILLATION WITH RAPID VENTRICULAR RESPONS Physical Exam Vital Signs: Temp Pulse Resp BP Pulse Ox 98.0 F 95 22 H 102/66 96 12/22/19 04:04 12/22/19 04:04 12/22/19 04:04 12/22/19 04:04 12/22/19 04:04 Intake & Output 12/20/19 12/21/19 12/22/19 06:59 06:59 06:59 Intake Total 1003 1019 Balance 1003 1019 Weight 111.6 kg Results Laboratory Results: 12/20/19 20:20 12/20/19 20:20 12/21/19 05:38 TSH 1.30 Free T4 1.47 12/20/19 12/20/19 12/20/19 20:20 20:20 23:27 Creatine Kinase 23 L CK-MB (CK-2) 0.32 Troponin I < 0.012 < 0.012 NT-Pro-B Natriuret Pep 12/21/19 12/21/19 12/21/19 05:38 05:38 14:47 Creatine Kinase < 20 L < 20 L CK-MB (CK-2) 0.29 Troponin I < 0.012 NT-Pro-B Natriuret Pep 635 H 12/21/19 12/21/19 12/21/19 14:47 20:56 20:56 Creatine Kinase < 20 L CK-MB (CK-2) 0.34 0.37 Troponin I < 0.012 < 0.012 NT-Pro-B Natriuret Pep Impressions: Chest X-Ray 12/20/19 20:22 IMPRESSION: No acute disease. copyright 2010 [employer]- All Rights Reserved KUB X-Ray 12/20/19 20:31 IMPRESSION: No acute intra-abdominal process is identified. 12/20/19 20:20 12/20/19 20:20 MCV 84 fl (80-97) 12/20/19 20:20 MCH 28.4 pg (27.0-33.4) 12/20/19 20:20 MCHC 33.8 g/dL (32.0-36.0) 12/20/19 20:20 RDW 17.5 % (11.5-14.0) H 12/20/19 20:20 Seg Neutrophils % 46.4 % (42-78) 12/20/19 20:20 Chloride 98 mmol/L (98-107) 12/20/19 20:20 Carbon Dioxide 28 mmol/L (22-30) 12/20/19 20:20 Anion Gap 12 (5-19) 12/20/19 20:20 Est GFR ( Amer) > 60 (>60) 12/20/19 20:20 Glucose 132 mg/dL (75-110) H 12/20/19 20:20 Calcium 9.4 mg/dL (8.4-10.2) 12/20/19 20:20 Magnesium 1.6 mg/dL (1.6-2.3) 12/21/19 05:38 Total Bilirubin 0.4 mg/dL (0.2-1.3) 12/20/19 20:20 AST 27 U/L (14-36) 12/20/19 20:20 Alkaline Phosphatase 95 U/L (38-126) 12/20/19 20:20 Total Protein 7.1 g/dL (6.3-8.2) 12/20/19 20:20 Albumin 3.6 g/dL (3.5-5.0) 12/20/19 20:20 TSH 1.30 uIU/mL (0.47-4.68) 12/21/19 05:38 Free T4 1.47 ng/dL (0.78-2.19) 12/21/19 05:38 Urine Color YELLOW 12/20/19 22:44 Urine Appearance SLIGHTLY-CLOUDY 12/20/19 22:44 Urine pH 5.0 (5.0-9.0) 12/20/19 22:44 Ur Specific [place] 1.016 12/20/19 22:44 Urine Protein NEGATIVE mg/dL (NEGATIVE) 12/20/19 22:44 Urine Glucose (UA) NEGATIVE mg/dL (NEGATIVE) 12/20/19 22:44 Urine Ketones NEGATIVE mg/dL (NEGATIVE) 12/20/19 22:44 Urine Blood NEGATIVE (NEGATIVE) 12/20/19 22:44 Urine Nitrite NEGATIVE (NEGATIVE) 10/07/20 22:44 Ur Leukocyte Esterase NEGATIVE (NEGATIVE) 12/20/19 22:44 Urine WBC (Auto) 2 /HPF 12/20/19 22:44 Urine RBC (Auto) 1 /HPF 12/20/19 22:44 12/20/19 12/20/19 12/20/19 20:20 20:20 23:27 Creatine Kinase 23 L CK-MB (CK-2) 0.32 Troponin I < 0.012 < 0.012 NT-Pro-B Natriuret Pep 12/21/19 12/21/19 12/21/19 05:38 05:38 14:47 Creatine Kinase < 20 L < 20 L CK-MB (CK-2) 0.29 Troponin I < 0.012 NT-Pro-B Natriuret Pep 635 H 12/21/19 12/21/19 12/21/19 14:47 20:56 20:56 Creatine Kinase < 20 L CK-MB (CK-2) 0.34 0.37 Troponin I < 0.012 < 0.012 NT-Pro-B Natriuret Pep Current Medication List Generic Name Dose Route Start Last Admin Trade Name Freq PRN Reason Stop Dose Admin Acetaminophen 650 mg 12/22/19 00:41 12/22/19 00:59 Tylenol 325 Mg Tablet PO 01/21/20 00:40 650 mg Q4HP PRN Administration PAIN Albuterol 2 puff 12/22/19 10:00 Ventolin Hfa 8 Gm Mdi IH 01/21/20 09:59 TID NAEEM Aspirin 325 mg 12/21/19 11:00 12/21/19 12:55 Aspirin 325 Mg Tablet PO 01/20/20 10:59 325 mg DAILY NAEEM Administration Enoxaparin Sodium 40 mg 12/21/19 10:00 12/21/19 10:12 Lovenox Inj 40 Mg/0.4 Ml Disp.Syrin SUBCUT 01/20/20 09:59 40 mg DAILY NAEEM Administration Metoprolol Tartrate 50 mg 12/21/19 18:00 12/22/19 00:06 Lopressor 50 Mg Tablet PO 01/20/20 17:59 50 mg Q6 NAEEM Administration Pantoprazole Sodium 40 mg 12/22/19 08:[address] Tablet PO 01/21/20 07:59 QAM NAEEM Discontinued Medications Generic Name Dose Route Start Last Admin Trade Name Freq PRN Reason Stop Dose Admin Aspirin 324 mg 12/20/19 20:35 12/20/19 20:46 Aspirin 81 Mg Chewable Tablet PO 12/20/19 20:36 324 mg NOW ONE Administration Diltiazem HCl 5 mg 12/20/19 20:32 12/20/19 20:47 Cardizem Inj 25 Mg/5 Ml Vial IV 12/20/19 20:33 5 mg NOW ONE Administration Diltiazem HCl 180 mg 12/20/19 22:44 12/20/19 22:51 Cardizem Cd 180 Mg Capsule PO 12/20/19 22:45 Not Given NOW ONE Diltiazem HCl 10 mg 12/20/19 22:49 12/20/19 23:01 Cardizem Inj 25 Mg/5 Ml Vial IV 12/20/19 22:50 10 mg NOW ONE Administration Enoxaparin Sodium 120 mg 12/20/19 20:34 12/20/19 20:49 Lovenox Inj 120 Mg/0.8 Ml Disp.Syrin SUBCUT 12/20/19 20:35 120 mg NOW ONE Administration Sodium Chloride 1,000 mls @ 0 mls/hr 12/20/19 20:31 12/21/19 00:16 Nacl 0.9% 1000 Ml Iv Soln IV 12/20/19 20:32 Infused BOLUS ONE Infusion Wide Open Diltiazem HCl 125 mg in 125 mls @ 0 mls/hr 12/21/19 04:39 12/21/19 14:42 Cardizem Rtu Inj 125 Mg-D5w 125 Ml Premix IV 01/20/20 04:38 Infused CONTINUOUS PRN Titration THIS MED IS NOT "PRN" Protocol Titrate Diltiazem HCl 125 mg in 125 mls @ 0 mls/hr 12/21/19 12:53 12/21/19 14:42 Cardizem Rtu Inj 125 Mg-D5w 125 Ml Premix IV 12/21/19 23:59 0 mg/hr CONTINUOUS PRN 0 mls/hr THIS MED IS NOT "PRN" Titration Protocol Titrate Metoprolol Tartrate 50 mg 12/21/19 11:00 12/21/19 12:55 Lopressor 50 Mg Tablet PO 01/20/20 10:59 50 mg Q12 NAEEM Administration Oxycodone/Acetaminophen 1 tab 12/20/19 23:09 12/20/19 23:32 Percocet 5-325 Mg Tablet PO 12/20/19 23:10 1 tab NOW ONE Administration Simethicone 160 mg 12/20/19 21:32 12/20/19 21:53 Mylicon 80 Mg Chewable Tablet PO 12/20/19 21:33 160 mg NOW ONE Administration 12/22/19 06:08 12/22/19 06:08 MCV 84 fl (80-97) 12/22/19 06:08 MCH 28.4 pg (27.0-33.4) 12/22/19 06:08 MCHC 33.9 g/dL (32.0-36.0) 12/22/19 06:08 RDW 17.4 % (11.5-14.0) H 12/22/19 06:08 Seg Neutrophils % 50.6 % (42-78) 12/22/19 06:08 Chloride 100 mmol/L (98-107) 12/22/19 06:08 Chloride Cancelled 12/22/19 06:08 Carbon Dioxide 30 mmol/L (22-30) 12/22/19 06:08 Carbon Dioxide Cancelled 12/22/19 06:08 Anion Gap 9 (5-19) 12/22/19 06:08 Anion Gap Cancelled 12/22/19 06:08 Est GFR ( Amer) > 60 (>60) 12/22/19 06:08 Est GFR ( Amer) Cancelled 12/22/19 06:08 Est GFR (Non-Af Amer) Cancelled 12/22/19 06:08 Glucose 114 mg/dL (75-110) H 12/22/19 06:08 Glucose Cancelled 12/22/19 06:08 Calcium 9.6 mg/dL (8.4-10.2) 12/22/19 06:08 Calcium Cancelled 12/22/19 06:08 Magnesium 1.6 mg/dL (1.6-2.3) 12/21/19 05:38 Total Bilirubin 0.5 mg/dL (0.2-1.3) 12/22/19 06:08 AST 24 U/L (14-36) 12/22/19 06:08 Alkaline Phosphatase 92 U/L (38-126) 12/22/19 06:08 Total Protein 6.7 g/dL (6.3-8.2) 12/22/19 06:08 Albumin 3.3 g/dL (3.5-5.0) L 12/22/19 06:08 Triglycerides 173 mg/dL (<150) H 12/22/19 06:08 Cholesterol 139.85 mg/dL (0-200) 12/22/19 06:08 LDL Cholesterol Direct 77 mg/dL (<100) 12/22/19 06:08 VLDL Cholesterol 34.6 mg/dL (10-31) H 12/22/19 06:08 HDL Cholesterol 31 mg/dL (>40) L 12/22/19 06:08 TSH 1.30 uIU/mL (0.47-4.68) 12/21/19 05:38 Free T4 1.47 ng/dL (0.78-2.19) 12/21/19 05:38 Urine Color YELLOW 12/20/19 22:44 Urine Appearance SLIGHTLY-CLOUDY 12/20/19 22:44 Urine pH 5.0 (5.0-9.0) 12/20/19 22:44 Ur Specific [place] 1.016 12/20/19 22:44 Urine Protein NEGATIVE mg/dL (NEGATIVE) 12/20/19 22:44 Urine Glucose (UA) NEGATIVE mg/dL (NEGATIVE) 12/20/19 22:44 Urine Ketones NEGATIVE mg/dL (NEGATIVE) 12/20/19 22:44 Urine Blood NEGATIVE (NEGATIVE) 12/20/19 22:44 Urine Nitrite NEGATIVE (NEGATIVE) 12/20/19 22:44 Ur Leukocyte Esterase NEGATIVE (NEGATIVE) 12/20/19 22:44 Urine WBC (Auto) 2 /HPF 12/20/19 22:44 Urine RBC (Auto) 1 /HPF 12/20/19 22:44 12/20/19 22:44 Clean Catch Midstream Urine Culture - Final Mixed Skin. Possible Pathogen 12/20/19 12/20/19 12/20/19 20:20 20:20 23:27 Creatine Kinase 23 L CK-MB (CK-2) 0.32 Troponin I < 0.012 < 0.012 NT-Pro-B Natriuret Pep 12/21/19 12/21/19 12/21/19 05:38 05:38 14:47 Creatine Kinase < 20 L < 20 L CK-MB (CK-2) 0.29 Troponin I < 0.012 NT-Pro-B Natriuret Pep 635 H 12/21/19 12/21/19 12/21/19 14:47 20:56 20:56 Creatine Kinase < 20 L CK-MB (CK-2) 0.34 0.37 Troponin I < 0.012 < 0.012 NT-Pro-B Natriuret Pep 12/22/19 06:08 Creatine Kinase CK-MB (CK-2) Troponin I NT-Pro-B Natriuret Pep 604 H Assessment & Plan - Diagnosis (1) Atrial fibrillation Qualifiers: Atrial fibrillation type: unspecified Qualified Code(s): I48.91 - Unspecified atrial fibrillation Is this a current diagnosis for this admission?: Yes Plan: Her heart rate is improved that after receiving 3 doses of Lopressor 50 mg p.o. She continues to be asymptomatic with a significantly improved ventricular response. She is currently not anticoagulated as, in her last evaluated in November 2019, she was not cleared for full anticoagulation. Recommendations: -Continue with Lopressor 50 mg p.o. every 6 hours. -Hold anticoagulation until cleared by neurology. -We will consider outpatient ischemic assessment once the patient is improved. (2) Elevated brain natriuretic peptide (BNP) level Plan: Likely secondary to her atrial fibrillation. There is no clinical or physical exam evidence of heart failure. The patient is resting comfortably on her back without dyspnea. Her chest x-ray did not show evidence of heart failure. Recommendations: -Continue to follow clinically.
[2019-12-22] MEDS ORDERED: HYDROCHLOROTHIAZIDE 25 MG TABLET PO SCH (21:15)
[2019-12-22] MEDS ORDERED: ASPIRIN 325 MG TABLET PO SCH (21:15)
[2019-12-22] MEDS ORDERED: ALBUTEROL SULFATE HFA (90 MCG/PUFF) 8 GM MDI IH SCH (21:15)
[2019-12-22] MEDS ORDERED: ACETAMINOPHEN 325 MG TABLET PO PRN (21:15)
[2019-12-22] MEDS ORDERED: POLYETHYLENE GLYCOL PO SCH (21:30)
[2019-12-22] MEDS ORDERED: METOPROLOL TARTRATE 25 MG TABLET PO SCH (21:30)
--- NOTE | 2019-12-22 21:33 | PDOC PROGRESS REPORT ---
Subjective Progress Note for:: 12/22/19 Subjective:: Patient seen by the bedside presently ruled out for acute [place], she was seen by the cardiology hopefully discharge home tomorrow Reason For Visit: ATRIAL FIBRILLATION WITH RAPID VENTRICULAR RESPONS Physical Exam Vital Signs: Temp Pulse Resp BP Pulse Ox 98.0 F 95 19 115/83 95 12/22/19 16:15 12/22/19 16:15 12/22/19 16:15 12/22/19 16:15 12/22/19 16:15 Intake & Output 12/21/19 12/22/19 12/23/19 06:59 06:59 06:59 Intake Total 1003 1219 1216 Balance 1003 1219 1216 Weight 111.6 kg 116.1 kg General appearance: PRESENT: no acute distress Eye exam: PRESENT: PERRLA Respiratory exam: PRESENT: clear to auscultation mey Cardiovascular exam: PRESENT: +S1, +S2 Results Laboratory Results: 12/22/19 06:08 12/22/19 06:08 12/22/19 12/22/19 12/22/19 06:08 06:08 06:08 WBC 6.7 RBC 4.13 Hgb 11.7 L Hct 34.6 L MCV 84 MCH 28.4 MCHC 33.9 RDW 17.4 H Plt Count 286 Seg Neutrophils % 50.6 Sodium 138.6 Cancelled Potassium 3.5 L Cancelled Chloride 100 Cancelled Carbon Dioxide 30 Cancelled Anion Gap 9 Cancelled BUN 11 Cancelled Creatinine 0.64 Cancelled Est GFR ( Amer) > 60 Cancelled Est GFR (Non-Af Amer) Cancelled Glucose 114 H Cancelled Calcium 9.6 Cancelled Total Bilirubin 0.5 AST 24 Alkaline Phosphatase 92 Total Protein 6.7 Albumin 3.3 L Triglycerides 173 H Cholesterol 139.85 LDL Cholesterol Direct 77 VLDL Cholesterol 34.6 H HDL Cholesterol 31 L 12/20/19 22:44 Clean Catch Midstream Urine Culture - Final Mixed Skin. Possible Pathogen 12/20/19 12/20/19 12/20/19 20:20 20:20 23:27 Creatine Kinase 23 L CK-MB (CK-2) 0.32 Troponin I < 0.012 < 0.012 NT-Pro-B Natriuret Pep 12/21/19 12/21/19 12/21/19 05:38 05:38 14:47 Creatine Kinase < 20 L < 20 L CK-MB (CK-2) 0.29 Troponin I < 0.012 NT-Pro-B Natriuret Pep 635 H 12/21/19 12/21/19 12/21/19 14:47 20:56 20:56 Creatine Kinase < 20 L CK-MB (CK-2) 0.34 0.37 Troponin I < 0.012 < 0.012 NT-Pro-B Natriuret Pep 12/22/19 06:08 Creatine Kinase CK-MB (CK-2) Troponin I NT-Pro-B Natriuret Pep 604 H Impressions: Chest X-Ray 12/20/19 20:22 IMPRESSION: No acute disease. copyright 2011 [email or web address]- All Rights Reserved KUB X-Ray 12/20/19 20:31 IMPRESSION: No acute intra-abdominal process is identified. Assessment & Plan - Diagnosis (1) Paroxysmal atrial fibrillation with rapid ventricular response Is this a current diagnosis for this admission?: Yes (2) Chest pain at rest Is this a current diagnosis for this admission?: Yes - Time Time Spent with patient: 25-34 minutes Level of Care: IMCU Medications reviewed and adjusted accordingly: Yes Anticipated discharge: Home Anticipated DC Timeframe: within 36 hours
[2019-12-22] MEDS ORDERED: MONTELUKAST SODIUM 10 MG TABLET PO SCH (22:00)
[2019-12-22] MEDS ORDERED: ATORVASTATIN CALCIUM 10 MG TABLET PO SCH (22:00)
[2019-12-22] MEDS ORDERED: (PENDING PHARMACY ID) (Pravastatin Sodium [Pravastatin Sodium] 40 MG) PO SCH (22:00)
[2019-12-22] MEDS: VENLAFAXINE HCL 75 MG CAP.SR.24H PO SCH (22:01)
[2019-12-22] MEDS: POLYETHYLENE GLYCOL 3350 POWDER 17 GM/1 PACKET PO SCH (22:01)
[2019-12-22] MEDS: SENNOSIDES/DOCUSATE 8.6-50 MG 1 EACH TABLET PO SCH (22:01)
[2019-12-22] MEDS: HYDROCHLOROTHIAZIDE 12.5 MG TABLET PO SCH (22:01)
[2019-12-22] MEDS: SUCRALFATE 1 GM TABLET PO SCH (22:01)
[2019-12-23] MEDS: METOPROLOL TARTRATE 50 MG TABLET PO SCH ×2 (01:36→06:17)
[2019-12-23] MEDS: CEPHALEXIN 250 MG CAPSULE PO SCH ×3 (01:36→15:02)
[2019-12-23 06:46] LABS: ABSOLUTE BASOPHILS # (AUTO) 0.1 10^3/uL (0.0-0.2); ABSOLUTE EOSINOPHILS # (AUTO) 0.4 10^3/uL (0.0-0.6); ABSOLUTE MONOCYTES (AUTO) 0.6 10^3/uL (0.1-1.4); ABSOLUTE NEUT (AUTO) 3.7 10^3/uL (1.7-8.2); BASOPHILS % (AUTO) 1.1 % (0-2); EOSINOPHILS % (AUTO) 6.5 % (0-6); HEMOGLOBIN 11.5 g/dL (12.0-15.5); LYMPHOCYTES % (AUTO) 29.6 % (13-45); MEAN CORPUSCULAR HEMOGLOBIN 28.3 pg (27.0-33.4); MEAN CORPUSCULAR HGB CONC 33.9 g/dL (32.0-36.0); MEAN CORPUSCULAR VOLUME 83 fl (80-97); MONOCYTES % (AUTO) 8.3 % (3-13); PLATELET COUNT 297 10^3/uL (150-450); RED BLOOD COUNT 4.07 10^6/uL (3.72-5.28); RED CELL DISTRIBUTION WIDTH 17.2 % (11.5-14.0); SEGMENTED NEUTROPHILS % (AUTO) 54.5 % (42-78); TOTAL CELLS COUNTED % (AUTO) 100 %; WHITE BLOOD COUNT 6.7 10^3/uL (4.0-10.5)
--- NOTE | 2019-12-23 07:46 | PDOC PROGRESS REPORT ---
Subjective Progress Note for:: 12/23/19 Subjective:: YESENIA HIGGINS is a 64 year old female with history of stroke on 12/04/2019 secondary to right M1 occlusion initially treated with IV TPA followed by mechanical thrombectomy, complicated by cerebral edema and midline shift which was treated with decompressive hemicraniectomy on 12/05/2019, hypertension, hyperlipidemia, diabetes, asthma, arthritis, seasonal allergies, tobacco use but quit 5 months ago, paroxysmal atrial fibrillation who is consulted to our service for further evaluation and treatment of atrial fibrillation. The patient came to the emergency room by ambulance complaining of chest pain after eating supper. She describes her pain as sharp in nature, substernal in location, lasting approximately 10 minutes, with radiation to the epigastrium and she thought it was from reflux disease, associated with shortness of breath and without diaphoresis, palpitations, syncope or presyncope. In the emergency room she was found to be in rapid atrial fibrillation and was started on a Cardizem drip. This morning she continues to be at her baseline and denies new cardiac complaints. She denies recurrence of chest pain. Unfortunately she continues to be in rapid atrial fibrillation. 12/23/2019: The patient had an uneventful night from the cardiovascular standpoint however she is now unable to swallow for unclear reasons to me. Her blood pressure continues to be at goal. Her telemetry shows atrial fibrillation with a significantly improved heart rate however there are now episodes of severe bradycardia as well as transient episodes of rapid ventricular response consistent with sick sinus syndrome. Physical exam on 12/23/2019: GENERAL: Oriented x3 with normal mood. Not in acute distress. Well groomed and well developed. The patient is noted to have her medications in her mouth but unable to swallow. HEENT: Normocephalic, atraumatic. Pupils equal. Sclerae anicteric. Oropharynx moist. NECK: No JVD. No carotid bruits. LUNGS: Clear to auscultation bilaterally. Normal respiratory effort without the use of accessory muscles or intercostal retractions. CARDIOVASCULAR: Irregularly irregular rate and rhythm without murmurs, rubs, or gallops. PMI not displaced. ABDOMEN: No masses or tenderness to palpation. No bruit. No splenomegaly or hepatomegaly. No abdominal aorta bruit noted. EXTREMITIES: Trace pitting edema bilaterally, no cyanosis, no clubbing. +2 pulses femoral and pedal pulses bilaterally. SKIN: No lesions or rashes. MUSCULOSKELETAL: No chest tenderness to palpation. Cardiac studies: Echocardiogram on 12/21/2019: -EF 60 to 65%. -No wall motion abnormalities. -Possible inlet VSD. -Mild MR, mild AI, mild TR, mild PI. Reason For Visit: ATRIAL FIBRILLATION WITH RAPID VENTRICULAR RESPONS Physical Exam Vital Signs: Temp Pulse Resp BP Pulse Ox 98.2 F 111 H 18 96/56 L 94 12/23/19 04:04 12/23/19 04:04 12/23/19 04:04 12/23/19 04:04 12/23/19 04:04 Intake & Output 12/21/19 12/22/19 12/23/19 06:59 06:59 06:59 Intake Total 1003 1219 1266 Balance 1003 1219 1266 Weight 111.6 kg 116.1 kg Results Laboratory Results: 12/22/19 06:08 12/22/19 06:08 12/22/19 12/22/19 12/22/19 06:08 06:08 06:08 WBC 6.7 RBC 4.13 Hgb 11.7 L Hct 34.6 L MCV 84 MCH 28.4 MCHC 33.9 RDW 17.4 H Plt Count 286 Seg Neutrophils % 50.6 Sodium 138.6 Cancelled Potassium 3.5 L Cancelled Chloride 100 Cancelled Carbon Dioxide 30 Cancelled Anion Gap 9 Cancelled BUN 11 Cancelled Creatinine 0.64 Cancelled Est GFR ( Amer) > 60 Cancelled Est GFR (Non-Af Amer) Cancelled Glucose 114 H Cancelled Calcium 9.6 Cancelled Total Bilirubin 0.5 AST 24 Alkaline Phosphatase 92 Total Protein 6.7 Albumin 3.3 L Triglycerides 173 H Cholesterol 139.85 LDL Cholesterol Direct 77 VLDL Cholesterol 34.6 H HDL Cholesterol 31 L 12/20/19 22:44 Clean Catch Midstream Urine Culture - Final Mixed Skin. Possible Pathogen 12/20/19 12/20/19 12/20/19 20:20 20:20 23:27 Creatine Kinase 23 L CK-MB (CK-2) 0.32 Troponin I < 0.012 < 0.012 NT-Pro-B Natriuret Pep 12/21/19 12/21/19 12/21/19 05:38 05:38 14:47 Creatine Kinase < 20 L < 20 L CK-MB (CK-2) 0.29 Troponin I < 0.012 NT-Pro-B Natriuret Pep 635 H 12/21/19 12/21/19 12/21/19 14:47 20:56 20:56 Creatine Kinase < 20 L CK-MB (CK-2) 0.34 0.37 Troponin I < 0.012 < 0.012 NT-Pro-B Natriuret Pep 12/22/19 06:08 Creatine Kinase CK-MB (CK-2) Troponin I NT-Pro-B Natriuret Pep 604 H Impressions: Chest X-Ray 12/20/19 20:22 IMPRESSION: No acute disease. copyright 2010 [employer]- All Rights Reserved KUB X-Ray 12/20/19 20:31 IMPRESSION: No acute intra-abdominal process is identified. 12/22/19 06:08 12/22/19 06:08 MCV 84 fl (80-97) 12/22/19 06:08 MCH 28.4 pg (27.0-33.4) 12/22/19 06:08 MCHC 33.9 g/dL (32.0-36.0) 12/22/19 06:08 RDW 17.4 % (11.5-14.0) H 12/22/19 06:08 Seg Neutrophils % 50.6 % (42-78) 12/22/19 06:08 Chloride 100 mmol/L (98-107) 12/22/19 06:08 Chloride Cancelled 12/22/19 06:08 Carbon Dioxide 30 mmol/L (22-30) 12/22/19 06:08 Carbon Dioxide Cancelled 12/22/19 06:08 Anion Gap 9 (5-19) 12/22/19 06:08 Anion Gap Cancelled 12/22/19 06:08 Est GFR ( Amer) > 60 (>60) 12/22/19 06:08 Est GFR ( Amer) Cancelled 12/22/19 06:08 Est GFR (Non-Af Amer) Cancelled 12/22/19 06:08 Glucose 114 mg/dL (75-110) H 12/22/19 06:08 Glucose Cancelled 12/22/19 06:08 Calcium 9.6 mg/dL (8.4-10.2) 12/22/19 06:08 Calcium Cancelled 12/22/19 06:08 Magnesium 1.6 mg/dL (1.6-2.3) 12/21/19 05:38 Total Bilirubin 0.5 mg/dL (0.2-1.3) 12/22/19 06:08 AST 24 U/L (14-36) 12/22/19 06:08 Alkaline Phosphatase 92 U/L (38-126) 12/22/19 06:08 Total Protein 6.7 g/dL (6.3-8.2) 12/22/19 06:08 Albumin 3.3 g/dL (3.5-5.0) L 12/22/19 06:08 Triglycerides 173 mg/dL (<150) H 12/22/19 06:08 Cholesterol 139.85 mg/dL (0-200) 12/22/19 06:08 LDL Cholesterol Direct 77 mg/dL (<100) 12/22/19 06:08 VLDL Cholesterol 34.6 mg/dL (10-31) H 12/22/19 06:08 HDL Cholesterol 31 mg/dL (>40) L 12/22/19 06:08 TSH 1.30 uIU/mL (0.47-4.68) 12/21/19 05:38 Free T4 1.47 ng/dL (0.78-2.19) 12/21/19 05:38 Urine Color YELLOW 12/20/19 22:44 Urine Appearance SLIGHTLY-CLOUDY 12/20/19 22:44 Urine pH 5.0 (5.0-9.0) 12/20/19 22:44 Ur Specific [place] 1.016 12/20/19 22:44 Urine Protein NEGATIVE mg/dL (NEGATIVE) 12/20/19 22:44 Urine Glucose (UA) NEGATIVE mg/dL (NEGATIVE) 12/20/19 22:44 Urine Ketones NEGATIVE mg/dL (NEGATIVE) 12/20/19 22:44 Urine Blood NEGATIVE (NEGATIVE) 12/20/19 22:44 Urine Nitrite NEGATIVE (NEGATIVE) 12/20/19 22:44 Ur Leukocyte Esterase NEGATIVE (NEGATIVE) 12/20/19 22:44 Urine WBC (Auto) 2 /HPF 12/20/19 22:44 Urine RBC (Auto) 1 /HPF 12/20/19 22:44 12/20/19 22:44 Clean Catch Midstream Urine Culture - Final Mixed Skin. Possible Pathogen 12/20/19 12/20/19 12/20/19 20:20 20:20 23:27 Creatine Kinase 23 L CK-MB (CK-2) 0.32 Troponin I < 0.012 < 0.012 NT-Pro-B Natriuret Pep 12/21/19 12/21/19 12/21/19 05:38 05:38 14:47 Creatine Kinase < 20 L < 20 L CK-MB (CK-2) 0.29 Troponin I < 0.012 NT-Pro-B Natriuret Pep 635 H 12/21/19 12/21/19 12/21/19 14:47 20:56 20:56 Creatine Kinase < 20 L CK-MB (CK-2) 0.34 0.37 Troponin I < 0.012 < 0.012 NT-Pro-B Natriuret Pep 12/22/19 06:08 Creatine Kinase CK-MB (CK-2) Troponin I NT-Pro-B Natriuret Pep 604 H Current Medication List Generic Name Dose Route Start Last Admin Trade Name Freq PRN Reason Stop Dose Admin Acetaminophen 650 mg 12/22/19 00:41 12/22/19 09:49 Tylenol 325 Mg Tablet PO 01/21/20 00:40 650 mg Q4HP PRN Administration PAIN Albuterol 2 puff 12/22/19 10:00 12/22/19 18:13 Ventolin Hfa 8 Gm Mdi IH 01/21/20 09:59 2 puff TID NAEEM Administration Aspirin 325 mg 12/21/19 11:00 12/22/19 09:45 Aspirin 325 Mg Tablet PO 01/20/20 10:59 325 mg DAILY NAEEM Administration Atorvastatin Calcium 10 mg 12/22/19 22:00 12/22/19 22:01 Lipitor 10 Mg Tablet PO 01/21/20 21:59 10 mg QHS NAEEM Administration Cephalexin HCl 250 mg 12/23/19 00:00 12/23/19 01:36 Keflex 250 Mg Capsule PO 12/30/19 00:00 250 mg Q6 NAEEM Administration Enoxaparin Sodium 40 mg 12/21/19 10:00 12/22/19 09:45 Lovenox Inj 40 Mg/0.4 Ml Disp.Syrin SUBCUT 01/20/20 09:59 40 mg DAILY NAEEM Administration Hydrochlorothiazide 12.5 mg 12/22/19 22:00 12/22/19 22:01 Hydrodiuril 12.5 Mg Tablet PO 01/21/20 21:59 12.5 mg DAILY NAEEM Administration Metoprolol Tartrate 50 mg 12/21/19 18:00 12/23/19 01:36 Lopressor 50 Mg Tablet PO 01/20/20 17:59 50 mg Q6 NAEEM Administration Montelukast Sodium 10 mg 12/22/19 22:00 12/22/19 22:01 Singulair 10 Mg Tablet PO 01/21/20 21:59 10 mg QHS NAEEM Administration Pantoprazole Sodium 40 mg 12/22/19 08:00 12/22/19 09:[address] Tablet PO 01/21/20 07:59 40 mg QAM NAEEM Administration Polyethylene Glycol 17 gm 12/22/19 22:00 12/22/19 22:01 Miralax Powder 17 Gm/Packet PO 01/21/20 21:59 17 gm DAILY NAEEM Administration Senna/Docusate Sodium 1 each 12/22/19 21:30 12/22/19 22:01 Senna Plus Tablet PO 01/21/20 21:29 1 each BID NAEEM Administration Sucralfate 1 gm 12/22/19 22:00 12/22/19 22:01 Carafate 1 Gm Tablet PO 01/21/20 21:59 1 gm QID NAEEM Administration Venlafaxine HCl 75 mg 12/22/19 22:00 12/22/19 22:01 Effexor Xr 75 Mg Cap.Sr PO 01/21/20 21:59 75 mg DAILY NAEEM Administration Discontinued Medications Generic Name Dose Route Start Last Admin Trade Name Freq PRN Reason Stop Dose Admin Acetaminophen 650 mg 12/22/19 21:15 Tylenol 325 Mg Tablet PO 01/21/20 21:14 Q4HP PRN FOR PAIN Albuterol 2 puff 12/22/19 21:15 12/23/19 01:44 Ventolin Hfa 8 Gm Mdi IH 01/21/20 21:14 Not Given TID NAEEM Aspirin 324 mg 12/20/19 20:35 12/20/19 20:46 Aspirin 81 Mg Chewable Tablet PO 12/20/19 20:36 324 mg NOW ONE Administration Aspirin 325 mg 12/22/19 21:15 12/23/19 01:44 Aspirin 325 Mg Tablet PO 01/21/20 21:14 Not Given DAILY NAEEM Diltiazem HCl 5 mg 12/20/19 20:32 12/20/19 20:47 Cardizem Inj 25 Mg/5 Ml Vial IV 12/20/19 20:33 5 mg NOW ONE Administration Diltiazem HCl 180 mg 12/20/19 22:44 12/20/19 22:51 Cardizem Cd 180 Mg Capsule PO 12/20/19 22:45 Not Given NOW ONE Diltiazem HCl 10 mg 12/20/19 22:49 12/20/19 23:01 Cardizem Inj 25 Mg/5 Ml Vial IV 12/20/19 22:50 10 mg NOW ONE Administration Enoxaparin Sodium 120 mg 12/20/19 20:34 12/20/19 20:49 Lovenox Inj 120 Mg/0.8 Ml Disp.Syrin SUBCUT 12/20/19 20:35 120 mg NOW ONE Administration Sodium Chloride 1,000 mls @ 0 mls/hr 12/20/19 20:31 12/21/19 00:16 Nacl 0.9% 1000 Ml Iv Soln IV 12/20/19 20:32 Infused BOLUS ONE Infusion Wide Open Diltiazem HCl 125 mg in 125 mls @ 0 mls/hr 12/21/19 04:39 12/21/19 14:42 Cardizem Rtu Inj 125 Mg-D5w 125 Ml Premix IV 01/20/20 04:38 Infused CONTINUOUS PRN Titration THIS MED IS NOT "PRN" Protocol Titrate Diltiazem HCl 125 mg in 125 mls @ 0 mls/hr 12/21/19 12:53 12/21/19 14:42 Cardizem Rtu Inj 125 Mg-D5w 125 Ml Premix IV 12/21/19 23:59 0 mg/hr CONTINUOUS PRN 0 mls/hr THIS MED IS NOT "PRN" Titration Protocol Titrate Metoprolol Tartrate 50 mg 12/21/19 11:00 12/21/19 12:55 Lopressor 50 Mg Tablet PO 01/20/20 10:59 50 mg Q12 NAEEM Administration Metoprolol Tartrate 25 mg 12/22/19 21:30 Lopressor 25 Mg Tablet PO 01/21/20 21:29 BID NAEEM Oxycodone/Acetaminophen 1 tab 12/20/19 23:09 12/20/19 23:32 Percocet 5-325 Mg Tablet PO 12/20/19 23:10 1 tab NOW ONE Administration Pantoprazole Sodium 40 mg 12/23/19 08:[address] Tablet PO 01/22/20 07:59 QAM NAEEM Simethicone 160 mg 12/20/19 21:32 12/20/19 21:53 Mylicon 80 Mg Chewable Tablet PO 12/20/19 21:33 160 mg NOW ONE Administration 12/23/19 06:20 12/22/19 06:08 MCV 83 fl (80-97) 12/23/19 06:20 MCH 28.3 pg (27.0-33.4) 12/23/19 06:20 MCHC 33.9 g/dL (32.0-36.0) 12/23/19 06:20 RDW 17.2 % (11.5-14.0) H 12/23/19 06:20 Seg Neutrophils % 54.5 % (42-78) 12/23/19 06:20 Chloride 100 mmol/L (98-107) 12/22/19 06:08 Chloride Cancelled 12/22/19 06:08 Carbon Dioxide 30 mmol/L (22-30) 12/22/19 06:08 Carbon Dioxide Cancelled 12/22/19 06:08 Anion Gap 9 (5-19) 12/22/19 06:08 Anion Gap Cancelled 12/22/19 06:08 Est GFR ( Amer) > 60 (>60) 12/22/19 06:08 Est GFR ( Amer) Cancelled 12/22/19 06:08 Est GFR (Non-Af Amer) Cancelled 12/22/19 06:08 Glucose 114 mg/dL (75-110) H 12/22/19 06:08 Glucose Cancelled 12/22/19 06:08 Calcium 9.6 mg/dL (8.4-10.2) 12/22/19 06:08 Calcium Cancelled 12/22/19 06:08 Magnesium 1.6 mg/dL (1.6-2.3) 12/21/19 05:38 Total Bilirubin 0.5 mg/dL (0.2-1.3) 12/22/19 06:08 AST 24 U/L (14-36) 12/22/19 06:08 Alkaline Phosphatase 92 U/L (38-126) 12/22/19 06:08 Total Protein 6.7 g/dL (6.3-8.2) 12/22/19 06:08 Albumin 3.3 g/dL (3.5-5.0) L 12/22/19 06:08 Triglycerides 173 mg/dL (<150) H 12/22/19 06:08 Cholesterol 139.85 mg/dL (0-200) 12/22/19 06:08 LDL Cholesterol Direct 77 mg/dL (<100) 12/22/19 06:08 VLDL Cholesterol 34.6 mg/dL (10-31) H 12/22/19 06:08 HDL Cholesterol 31 mg/dL (>40) L 12/22/19 06:08 TSH 1.30 uIU/mL (0.47-4.68) 12/21/19 05:38 Free T4 1.47 ng/dL (0.78-2.19) 12/21/19 05:38 Urine Color YELLOW 12/20/19 22:44 Urine Appearance SLIGHTLY-CLOUDY 12/20/19 22:44 Urine pH 5.0 (5.0-9.0) 12/20/19 22:44 Ur Specific [place] 1.016 12/20/19 22:44 Urine Protein NEGATIVE mg/dL (NEGATIVE) 12/20/19 22:44 Urine Glucose (UA) NEGATIVE mg/dL (NEGATIVE) 12/20/19 22:44 Urine Ketones NEGATIVE mg/dL (NEGATIVE) 12/20/19 22:44 Urine Blood NEGATIVE (NEGATIVE) 12/20/19 22:44 Urine Nitrite NEGATIVE (NEGATIVE) 12/20/19 22:44 Ur Leukocyte Esterase NEGATIVE (NEGATIVE) 12/20/19 22:44 Urine WBC (Auto) 2 /HPF 12/20/19 22:44 Urine RBC (Auto) 1 /HPF 12/20/19 22:44 12/20/19 22:44 Clean Catch Midstream Urine Culture - Final Mixed Skin. Possible Pathogen 12/20/19 12/20/19 12/20/19 20:20 20:20 23:27 Creatine Kinase 23 L CK-MB (CK-2) 0.32 Troponin I < 0.012 < 0.012 NT-Pro-B Natriuret Pep 12/21/19 12/21/19 12/21/19 05:38 05:38 14:47 Creatine Kinase < 20 L < 20 L CK-MB (CK-2) 0.29 Troponin I < 0.012 NT-Pro-B Natriuret Pep 635 H 12/21/19 12/21/19 12/21/19 14:47 20:56 20:56 Creatine Kinase < 20 L CK-MB (CK-2) 0.34 0.37 Troponin I < 0.012 < 0.012 NT-Pro-B Natriuret Pep 12/22/19 06:08 Creatine Kinase CK-MB (CK-2) Troponin I NT-Pro-B Natriuret Pep 604 H Assessment & Plan - Diagnosis (1) Atrial fibrillation Qualifiers: Atrial fibrillation type: unspecified Qualified Code(s): I48.91 - Unspecified atrial fibrillation Is this a current diagnosis for this admission?: Yes Plan: Her heart rate is significantly improved however she is noted to have intermittent bradycardia in the 40s with episodes of rapid ventricular response in the 180s consistent with sick sinus syndrome. The patient is noted to not been able to swallow any of her medicines this morning which is a new finding for her. Given her episodes of bradycardia and suspected sick sinus syndrome I will decrease her Lopressor to 50 mg twice daily and we will continue to follow her. She is currently not anticoagulated as, in her last evaluated in November 2019, she was not cleared for full anticoagulation. At this point the patient is deemed not a good candidate for further cardiovascular invasive procedures. Recommendations: -Change Lopressor to 50 mg twice daily. -Hold anticoagulation until cleared by neurology, primary hospitalist to contact her neurologist to address this issue. -We will continue to follow with you. (2) Elevated brain natriuretic peptide (BNP) level Plan: Likely secondary to her atrial fibrillation. There is no clinical or physical exam evidence of heart failure. The patient is resting comfortably on her back without dyspnea. Her chest x-ray did not show evidence of heart failure. Recommendations: -Continue to follow clinically. (3) Rule out sick sinus syndrome Is this a current diagnosis for this admission?: Yes Plan: The patient is noted to have both episodes of significant bradycardia as well as rapid ventricular response to her atrial fibrillation which is consistent with sick sinus syndrome. She had remained asymptomatic however her bradycardia have been moderate to severe at times therefore I will decrease her beta-dong dose by 50%. At this point she is not yet a candidate for invasive cardiac procedures. (4) Swallowing dysfunction Is this a current diagnosis for this admission?: Yes Plan: The patient was noted to have difficulty swallowing her medications this morning even when crushed in applesauce. As [id number] she was unable to swallow anything this morning, this is actually a new finding. Recommendations: -Further evaluation and treatment per hospitalist team.
[2019-12-23] MEDS ORDERED: PANTOPRAZOLE SODIUM 40 MG TABLET.DR PO SCH (08:00)
[2019-12-23] MEDS: ASPIRIN 325 MG TABLET PO SCH (09:23)
[2019-12-23] MEDS: POLYETHYLENE GLYCOL 3350 POWDER 17 GM/1 PACKET PO SCH (09:23)
[2019-12-23] MEDS: HYDROCHLOROTHIAZIDE 12.5 MG TABLET PO SCH (09:23)
[2019-12-23] MEDS: VENLAFAXINE HCL 75 MG CAP.SR.24H PO SCH (09:23)
[2019-12-23] MEDS: PANTOPRAZOLE SODIUM 40 MG TABLET.DR PO SCH (09:23)
[2019-12-23] MEDS: SUCRALFATE 1 GM TABLET PO SCH ×2 (09:23→15:02)
[2019-12-23] MEDS: SENNOSIDES/DOCUSATE 8.6-50 MG 1 EACH TABLET PO SCH (09:23)
[2019-12-23] MEDS: ENOXAPARIN SODIUM INJ 40 MG/0.4 ML DISP.SYRIN SUBCUT SCH (09:24)
[2019-12-23] MEDS: ALBUTEROL SULFATE HFA (90 MCG/PUFF) 8 GM MDI IH SCH ×2 (09:24→15:02)
--- NOTE | 2019-12-23 12:53 | PDOC DISCHARGE SUMMARY ---
Impression - Admit/DC Date/PCP Admission Date/Primary Care Provider: 12/20/19 23:30 Discharge Date: 12/23/19 - Discharge Diagnosis (1) Paroxysmal atrial fibrillation with rapid ventricular response Is this a current diagnosis for this admission?: Yes (2) Chest pain at rest Is this a current diagnosis for this admission?: Yes (3) Sick sinus syndrome Is this a current diagnosis for this admission?: Yes - Additional Information Home Medications: Acetaminophen [Tylenol 325 mg Tablet] 650 mg PO Q4HP PRN 12/21/19 Albuterol Sulfate [Ventolin Hfa 8 gm Mdi] 2 puff IH TID 12/21/19 Aspirin [Aspirin 325 mg Tablet] 325 mg PO DAILY 12/21/19 Hydrochlorothiazide [Hydrodiuril 25 mg Tablet] 12.5 mg PO DAILY 12/21/19 Metoprolol Tartrate [Lopressor 25 mg Tablet] 25 mg PO BID 12/21/19 Montelukast Sodium [Singulair 10 mg Tablet] 10 mg PO QHS 12/21/19 Pantoprazole Sodium [Protonix [address] Tablet] 40 mg PO QAM 12/21/19 Polyethylene Glycol 3350 [Miralax] 1 dose PO DAILY 12/21/19 Pravastatin Sodium 40 mg PO QHS 12/21/19 Sennosides/Docusate 8.6-50 mg [Senna Plus Tablet] 1 tab PO BID 12/21/19 Sucralfate [Carafate 1 gm Tablet] 1 gm PO QID 12/21/19 Venlafaxine HCl ER [Effexor Xr 75 mg Cap.sr] 75 mg PO DAILY 12/21/19 Acetaminophen [Tylenol 325 mg Tablet] 650 mg PO Q4HP PRN tablet 12/23/19 History of Present Illiness History of Present Illness: YESENIA HIGGINS is a 64 year old female, She has a history of stroke on 12/04/2019 she just relocated from [place] she had intravenous TPA, thrombectomy complicated by cerebral edema and midline shift this was treated subsequently with decompressive hemicraniotomy on 12/05/2019. She came to the emergency room for evaluation of chest pain, palpitation, paroxysmal atrial fibrillation. Hospital Course Hospital Course: Patient was admitted for evaluation and management of atrial fibrillation, and chest pain, she was treated with intravenous Cardizem infusion for rate control, she ruled out for acute TN with serial enzymes, she had episode of long pauses on telemetry strip, the combination of A. fib with long pauses suggesting sick sinus syndrome, she probably need a pacemaker. She has atrial fibrillation, she is not a candidate for long-term anticoagulation with Coumadin or the newer anticoagulant because she has a history of recent craniotomy due to cerebral edema following a stroke. She supposed to return to [place] in February for replacement of the skull tissue. She was seen by Dr. Calderon cardiology, she be discharg home today Physical Exam Vital Signs: Temp Pulse Resp BP Pulse Ox 98.3 F 82 16 100/79 99 12/23/19 08:10 12/23/19 08:10 12/23/19 08:10 12/23/19 08:10 12/23/19 08:10 Intake & Output 12/22/19 12/23/19 12/24/19 06:59 06:59 06:59 Intake Total 1219 1366 Balance 1219 1366 Weight 116.1 kg 112.9 kg General appearance: PRESENT: no acute distress Eye exam: PRESENT: PERRLA Respiratory exam: PRESENT: clear to auscultation mey Cardiovascular exam: PRESENT: +S1, +S2 GI/Abdominal exam: PRESENT: soft Neurological exam: PRESENT: alert Results Laboratory Results: WBC 6.7 10^3/uL (4.0-10.5) 12/23/19 06:20 RBC 4.07 10^6/uL (3.72-5.28) 12/23/19 06:20 Hgb 11.5 g/dL (12.0-15.5) L 12/23/19 06:20 Hct 34.0 % (36.0-47.0) L 12/23/19 06:20 MCV 83 fl (80-97) 12/23/19 06:20 MCH 28.3 pg (27.0-33.4) 12/23/19 06:20 MCHC 33.9 g/dL (32.0-36.0) 12/23/19 06:20 RDW 17.2 % (11.5-14.0) H 12/23/19 06:20 Plt Count 297 10^3/uL (150-450) 12/23/19 06:20 Lymph % (Auto) 29.6 % (13-45) 12/23/19 06:20 [place] % (Auto) 8.3 % (3-13) 12/23/19 06:20 Eos % (Auto) 6.5 % (0-6) H 12/23/19 06:20 Baso % (Auto) 1.1 % (0-2) 12/23/19 06:20 Absolute Neuts (auto) 3.7 10^3/uL (1.7-8.2) 12/23/19 06:20 Absolute Lymphs (auto) 2.0 10^3/uL (0.5-4.7) 12/23/19 06:20 Absolute Monos (auto) 0.6 10^3/uL (0.1-1.4) 12/23/19 06:20 Absolute Eos (auto) 0.4 10^3/uL (0.0-0.6) 12/23/19 06:20 Absolute Basos (auto) 0.1 10^3/uL (0.0-0.2) 12/23/19 06:20 Seg Neutrophils % 54.5 % (42-78) 12/23/19 06:20 PT 14.9 SEC (11.4-15.4) 12/21/19 05:38 INR 1.15 12/21/19 05:38 APTT 36.2 SEC (23.5-35.8) H 12/21/19 05:38 Sodium 138.6 mmol/L (137-145) 12/22/19 06:08 Sodium Cancelled 12/22/19 06:08 Potassium 3.5 mmol/L (3.6-5.0) L 12/22/19 06:08 Potassium Cancelled 12/22/19 06:08 Chloride 100 mmol/L (98-107) 12/22/19 06:08 Chloride Cancelled 12/22/19 06:08 Carbon Dioxide 30 mmol/L (22-30) 12/22/19 06:08 Carbon Dioxide Cancelled 12/22/19 06:08 Anion Gap 9 (5-19) 12/22/19 06:08 Anion Gap Cancelled 12/22/19 06:08 BUN 11 mg/dL (7-20) 12/22/19 06:08 BUN Cancelled 12/22/19 06:08 Creatinine 0.64 mg/dL (0.52-1.25) 12/22/19 06:08 Creatinine Cancelled 12/22/19 06:08 Est GFR ( Amer) > 60 (>60) 12/22/19 06:08 Est GFR ( Amer) Cancelled 12/22/19 06:08 Est GFR (Non-Af Amer) Cancelled 12/22/19 06:08 Est GFR (MDRD) Non-Af > 60 (>60) 12/22/19 06:08 Est GFR (MDRD) Non-Af Cancelled 12/22/19 06:08 Glucose 114 mg/dL (75-110) H 12/22/19 06:08 Glucose Cancelled 12/22/19 06:08 Hemoglobin A1c % 5.4 % (4.7-6.0) 12/22/19 06:08 Calcium 9.6 mg/dL (8.4-10.2) 12/22/19 06:08 Calcium Cancelled 12/22/19 06:08 Magnesium 1.6 mg/dL (1.6-2.3) 12/21/19 05:38 Total Bilirubin 0.5 mg/dL (0.2-1.3) 12/22/19 06:08 Direct Bilirubin 0.2 mg/dL (0.0-0.4) 12/22/19 06:08 Neonat Total Bilirubin Not Reportable 12/22/19 06:08 Neonat Direct Bilirubin Not Reportable 12/22/19 06:08 Neonat Indirect Bili Not Reportable 12/22/19 06:08 AST 24 U/L (14-36) 12/22/19 06:08 ALT 13 U/L (<35) 12/22/19 06:08 Alkaline Phosphatase 92 U/L (38-126) 12/22/19 06:08 Creatine Kinase < 20 U/L (30-135) L 12/21/19 20:56 CK-MB (CK-2) 0.37 ng/mL (<4.55) 12/21/19 20:56 Troponin I < 0.012 ng/mL 12/21/19 20:56 NT-Pro-B Natriuret Pep 604 pg/mL (<125) H 12/22/19 06:08 Total Protein 6.7 g/dL (6.3-8.2) 12/22/19 06:08 Albumin 3.3 g/dL (3.5-5.0) L 12/22/19 06:08 Triglycerides 173 mg/dL (<150) H 12/22/19 06:08 Cholesterol 139.85 mg/dL (0-200) 12/22/19 06:08 LDL Cholesterol Direct 77 mg/dL (<100) 12/22/19 06:08 VLDL Cholesterol 34.6 mg/dL (10-31) H 12/22/19 06:08 HDL Cholesterol 31 mg/dL (>40) L 12/22/19 06:08 EGFR Cancelled 12/22/19 06:08 TSH 1.30 uIU/mL (0.47-4.68) 12/21/19 05:38 Free T4 1.47 ng/dL (0.78-2.19) 12/21/19 05:38 Urine Color YELLOW 12/20/19 22:44 Urine Appearance SLIGHTLY-CLOUDY 12/20/19 22:44 Urine pH 5.0 (5.0-9.0) 12/20/19 22:44 Ur Specific Gates 1.016 12/20/19 22:44 Urine Protein NEGATIVE mg/dL (NEGATIVE) 12/20/19 22:44 Urine Glucose (UA) NEGATIVE mg/dL (NEGATIVE) 12/20/19 22:44 Urine Ketones NEGATIVE mg/dL (NEGATIVE) 12/20/19 22:44 Urine Blood NEGATIVE (NEGATIVE) 12/20/19 22:44 Urine Nitrite NEGATIVE (NEGATIVE) 12/20/19 22:44 Urine Bilirubin NEGATIVE (NEGATIVE) 12/20/19 22:44 Urine Urobilinogen NEGATIVE mg/dL (<2.0) 12/20/19 22:44 Ur Leukocyte Esterase NEGATIVE (NEGATIVE) 12/20/19 22:44 Urine WBC (Auto) 2 /HPF 12/20/19 22:44 Urine RBC (Auto) 1 /HPF 12/20/19 22:44 U Hyaline Cast (Auto) 4 /LPF 12/20/19 22:44 Urine Bacteria (Auto) TRACE /HPF 12/20/19 22:44 Squamous Epi Cells Auto 6 /HPF 12/20/19 22:44 Urine Mucus (Auto) RARE /LPF 12/20/19 22:44 Urine Ascorbic Acid NEGATIVE (NEGATIVE) 12/20/19 22:44 12/20/19 12/20/19 12/21/19 20:20 23:27 05:38 CK-MB (CK-2) 0.32 0.29 Troponin I < 0.012 < 0.012 < 0.012 NT-Pro-B Natriuret Pep 635 H 12/21/19 12/21/19 12/22/19 14:47 20:56 06:08 CK-MB (CK-2) 0.34 0.37 Troponin I < 0.012 < 0.012 NT-Pro-B Natriuret Pep 604 H Impressions: Chest X-Ray 12/20/19 20:22 IMPRESSION: No acute disease. copyright 2011 [employer]- All Rights Reserved KUB X-Ray 12/20/19 20:31 IMPRESSION: No acute intra-abdominal process is identified. Stroke Is this a Stroke Patient?: No Acute Heart Failure Is this a Heart Failure Patient?: No
[2019-12-23 15:11] VITALS: BP 122/80
[2019-12-23] MEDS ORDERED: METOPROLOL TARTRATE 50 MG TABLET PO SCH (18:00)
== END 2019-12-23 16:21 | disposition home or self-care (01) ==
LOC: ER 19:53 → INTOOBSV 23:30 → EH 23:30 → 3S 12-21 03:50
PROVIDERS: ADMIT Internal Medicine; ATTEND Internal Medicine
DX: I48.0 Paroxysmal atrial fibrillation (principal); R07.9 Chest pain, unspecified; I49.5 Sick sinus syndrome; R79.89 Other specified abnormal findings of blood chemistry; R10.13 Epigastric pain; R06.02 Shortness of breath; Z86.73 Personal history of transient ischemic attack (TIA), and cerebral infarction without residual deficits; Z98.890 Other specified postprocedural states; I10 Essential (primary) hypertension; E78.5 Hyperlipidemia, unspecified; E11.9 Type 2 diabetes mellitus without complications; J45.909 Unspecified asthma, uncomplicated; Z87.891 Personal history of nicotine dependence; Z79.82 Long term (current) use of aspirin; Z79.899 Other long term (current) drug therapy
CPT/HCPCS: 93005; 99285; 96372; 96361; 96374; 96375; 36415 ×4; 87086; 84439; 82553 ×2; 82550 ×2; 83735; 84443; 85025 ×3; 85610 ×2; 85730 ×2; 80053 ×2; 81001; 84484 ×2; 83036; 80061; 83880 ×2; 93306; 71045; 74018; 93010; G0378 ×3; J3490 ×17; J1650 ×4; J7030

== ENCOUNTER 2019-12-28 14:15 | Inpatient (IN) | payer MEDICAID ==
--- NOTE | 2019-12-28 16:08 | RADIOLOGY REPORT (SQ) ---
EXAM DESCRIPTION: CT HEAD WITHOUT IMAGES COMPLETED DATE/TIME: 12/28/2019 3:56 pm REASON FOR STUDY: swelling COMPARISON: None. TECHNIQUE: Axial images acquired through the brain without intravenous contrast. Images reviewed wi th bone, brain and subdural windows. Additional sagittal and coronal reconstructions were generated. Images stored on PACS. All CT scanners at this facility use dose modulation, iterative reconstruction, and/or weight based d osing when appropriate to reduce radiation dose to as low as reasonably achievable (ALARA). [facility]: Dose Right [facility]: CareDose [facility]: Dose Right [facility]: Teradose 4D [facility]: [employer] RADIATION DOSE: CT Rad equipment meets quality standard of care and radiation dose reduction techniq ues were employed. CTDIvol: 53.2 - 55.2 mGy. DLP: 1634 mGy-cm. mGy. LIMITATIONS: Motion artifact. FINDINGS: VENTRICLES: Normal size and contour. CEREBRUM: No masses. No hemorrhage. No midline shift. Large area of decreased density and encephalo malacia in the right frontal, temporal, and parietal lobes CEREBELLUM: No masses. No hemorrhage. No alteration of density. No evidence for acute infarction. EXTRAAXIAL SPACES: No fluid collections. No masses. ORBITS AND GLOBE: No intra- or extraconal masses. Normal contour of globe without masses. CALVARIUM: Large craniectomy defect on the right side. PARANASAL SINUSES: No fluid or mucosal thickening. SOFT TISSUES: No mass or hematoma. OTHER: No other significant finding. IMPRESSION: SURGICAL CHANGES. LARGE CRANIECTOMY DEFECT ON THE RIGHT SIDE WITH PRESUMED CHRONIC MESSINA GES IN THE RIGHT CEREBRAL HEMISPHERE. NO DEFINITE ACUTE FINDINGS. NO PRIOR STUDIES FOR COMPARISON. EVIDENCE OF ACUTE STROKE: NO. COMMENT: Quality ID # [id number]: Final reports with documentation of one or more dose reduction techniques (e.g., Automated exposure control, adjustment of the mA and/or kV according to patient size, use of iterative reconstruction technique) TECHNICAL DOCUMENTATION: JOB ID: [id number] 2010 [employer]- All Rights Reserved Reading location - IP/workstation name: [email or web address]
--- NOTE | 2019-12-28 17:01 | ER Document Report ---
Entered by ZAID CASTILLO SCRIBE 12/28/19 1529 Acting as scribe for:MELITON MILTON MD ED General - General Chief Complaint: Headache Stated Complaint: HEAD SWELLING Time Seen by Provider: 12/28/19 15:29 Mode of Arrival: Ambulatory Information source: Patient Notes: This 64 year old female patient s/p decompression craniotomy in early November after CVA presents to the emergency department today with complaints of a headache and right sided head swelling. Patient's sister at bedside reports that she left the house earlier today and when she returned her brother told her that the right side of the patient's head appeared swollen and she agreed with him so she brought the patient in for evaluation. Patient mentions she has had a headache off and on for a few days. TRAVEL OUTSIDE OF THE [place] IN LAST 30 DAYS: No - Related Data Allergies/Adverse Reactions: baclofen Allergy (Verified 12/20/19 20:12) morphine Allergy (Verified 12/20/19 20:12) Past Medical History - General Information source: Patient - Social History Smoking Status: Former Smoker Cigarette use (# per day): No Frequency of alcohol use: None Drug Abuse: None Lives with: Family Family History: Reviewed & Not Pertinent Patient has homicidal ideation: No - Past Medical History Cardiac Medical History: Reports: Hx Atrial Fibrillation, Hx Hypertension Pulmonary Medical History: Reports: Hx Asthma Neurological Medical History: Reports: Hx Cerebrovascular Accident - s/p thrombectomy and decompression craniotomy Endocrine Medical History: Reports: Hx Diabetes Mellitus Type 2 Psychiatric Medical History: Reports: Hx Depression Past Surgical History: Reports: Hx Neurologic Surgery - Right-sided decompression craniotomy, Hx Tubal Ligation Review of Systems - Review of Systems Constitutional: No symptoms reported EENT: No symptoms reported Cardiovascular: No symptoms reported Respiratory: No symptoms reported Gastrointestinal: No symptoms reported Genitourinary: No symptoms reported Female Genitourinary: No symptoms reported Musculoskeletal: No symptoms reported Skin: No symptoms reported Hematologic/Lymphatic: No symptoms reported Neurological/Psychological: See HPI, Headaches -: Yes All other systems reviewed and negative Physical Exam - Vital signs Vitals: Temp Pulse Resp BP Pulse Ox 98.6 F 98 20 114/47 L 99 12/28/19 15:01 12/28/19 15:01 12/28/19 15:01 12/28/19 15:01 12/28/19 15:01 - Notes Notes: Physical Exam: General: Alert, oriented, appears chronically ill. HEENT: Atraumatic. PERRL. Extraocular movements intact. Oropharynx clear. Large defect of the right skull status post craniotomy, this area is soft, no obvious bulging. Neck: Supple. Non-tender. Respiratory: No respiratory distress. Clear and equal breath sounds bilaterally. Cardiovascular: Irregularly irregular tachycardia without murmur heard. Abdominal: Morbidly obese. Non-tender. No distension. Normal Bowel Sounds. Back: No gross abnormalities. Extremities: Left hemiaplasia Neurological: Normal cognition. AAOx4. Slightly dysarthric. Psychological: Normal affect. Normal Mood. Skin: Warm. Dry. Normal color. Course - Re-evaluation Re-evalutation: 12/28/19 19:12 The patient's rate was fluctuating between the 130s to 150s, she got Cardizem bolus and drip and the rate is now 99. - Vital Signs Vital signs: Temp Pulse Resp BP Pulse Ox 98.1 F 84 18 108/72 96 12/29/19 08:10 12/29/19 07:58 12/29/19 03:55 12/29/19 07:58 12/29/19 07:58 - Laboratory Result Diagrams: 12/28/19 16:40 12/28/19 16:40 Laboratory results interpreted by me: 12/28/19 12/28/19 12/28/19 16:40 16:40 16:40 RDW 17.6 H Eos % (Auto) 8.1 H Glucose 128 H Creatine Kinase < 20 L Albumin 3.4 L - Diagnostic Test Radiology reviewed: Image reviewed, Reports reviewed - Noncontrast CT scan of the head shows large craniotomy defect on the right side with presumed chronic changes in the right cerebral hemisphere. No definite acute findings. No prior studies. - EKG Interpretation by Me EKG shows normal: [place], Intervals. abnormal: QRS Complexes - Borderline R wave progression anterior leads., ST-T Waves - Borderline T wave abnormalities in the anterior leads Rate: Tachycardia - 129 Rhythm: A.Fib When compared to previous EKG there are: No significant change - Consults Dr. Morales Time consulted: 19:10 Consulted provider: will see as inpatient Critical Care Note - Critical Care Note Total time excluding time spent on procedures (mins): 35 Comments: At least 35 minutes spent evaluating patient, reviewing prior records. Time spent determining there was not an acute neurological emergency, however a cardiac emergency situation was discovered necessitating IV Cardizem to slow her A. fib with RVR. Reviewing the patient's response to medication. Time spent di scussing the case with the patient and family, discussing the case with the patient's primary care provider and getting the admission process going. Discharge - Discharge Clinical Impression: Atrial fibrillation with RVR, S/P craniotomy Headache Qualifiers: Headache type: unspecified Headache chronicity pattern: unspecified pattern Intractability: not intractable Qualified Code(s): R51.9 - Headache, unspecified Condition: Good Disposition: ADMITTED INPATIENT Admitting Provider: Andrew Unit Admitted: [facility] I personally performed the services described in the documentation, reviewed and edited the documentation which was dictated to the scribe in my presence, and it accurately records my words and actions.
[2019-12-28 17:15] LABS: INTERNATIONAL RATION (INR) 1.01; PROTHROMBIN TIME 13.5 SEC (11.4-15.4)
[2019-12-28 17:17] LABS: BLOOD UREA NITROGEN 10 mg/dL (7-20); CALCIUM 9.5 mg/dL (8.4-10.2); GLUCOSE 128 mg/dL (75-110)
[2019-12-28 17:18] LABS: ALBUMIN 3.4 g/dL (3.5-5.0); ALKALINE PHOSPHATASE 81 U/L (38-126); ANION GAP 9 (5-19); ASPARTATE AMINO TRANSFERASE 20 U/L (14-36); BILIRUBIN,DIRECT 0.2 mg/dL (0.0-0.4); BILIRUBIN,TOTAL 0.4 mg/dL (0.2-1.3); CARBON DIOXIDE 30 mmol/L (22-30); CHLORIDE 101 mmol/L (98-107); POTASSIUM 4.1 mmol/L (3.6-5.0); TOTAL PROTEIN 6.7 g/dL (6.3-8.2)
[2019-12-28 17:23] LABS: ABSOLUTE EOSINOPHILS # (AUTO) 0.6 10^3/uL (0.0-0.6); ABSOLUTE LYMPHOCYTES (AUTO) 2.7 10^3/uL (0.5-4.7); ABSOLUTE MONOCYTES (AUTO) 0.6 10^3/uL (0.1-1.4); BASOPHILS % (AUTO) 0.5 % (0-2); EOSINOPHILS % (AUTO) 8.1 % (0-6); HEMATOCRIT 36.8 % (36.0-47.0); HEMOGLOBIN 12.3 g/dL (12.0-15.5); LYMPHOCYTES % (AUTO) 34.3 % (13-45); MEAN CORPUSCULAR HEMOGLOBIN 28.2 pg (27.0-33.4); MEAN CORPUSCULAR HGB CONC 33.4 g/dL (32.0-36.0); MEAN CORPUSCULAR VOLUME 84 fl (80-97); MONOCYTES % (AUTO) 7.3 % (3-13); PLATELET COUNT 302 10^3/uL (150-450); RED BLOOD COUNT 4.37 10^6/uL (3.72-5.28); RED CELL DISTRIBUTION WIDTH 17.6 % (11.5-14.0); SEGMENTED NEUTROPHILS % (AUTO) 49.8 % (42-78); TOTAL CELLS COUNTED % (AUTO) 100 %; WHITE BLOOD COUNT 7.9 10^3/uL (4.0-10.5)
[2019-12-28] MEDS ORDERED: NORMAL SALINE 1000 ML 250 ML IV ONE (18:15)
[2019-12-28] MEDS ORDERED: DILTIAZEM HCL/D5W 125 MG/125 ML RTUINJ IV PRN (18:16)
[2019-12-28] MEDS ORDERED: DILTIAZEM HCL INJ 25 MG/5 ML VIAL IV ONE (18:16)
--- NOTE | 2019-12-28 21:50 | EKG REPORT ---
SEVERITY:- ABNORMAL ECG - ATRIAL FIBRILLATION, V-RATE 99-158 BORDERLINE R WAVE PROGRESSION, ANTERIOR LEADS BORDERLINE T ABNORMALITIES, ANTERIOR LEADS : Confirmed by: Magalie Velasquez 28-Dec-2019 21:50:01
[2019-12-28] MEDS ORDERED: METOPROLOL TARTRATE PF/INJ 5 MG/5 ML SDV IV ONE (22:10)
[2019-12-28] MEDS ORDERED: (PENDING PHARMACY ID) (Pravastatin Sodium [Pravastatin Sodium] 40 MG) PO SCH (22:30)
[2019-12-28] MEDS ORDERED: MONTELUKAST SODIUM 10 MG TABLET PO ONE (23:00)
[2019-12-28] MEDS ORDERED: SUCRALFATE 1 GM TABLET PO ONE (23:00)
[2019-12-28] MEDS ORDERED: METOPROLOL TARTRATE 25 MG TABLET PO ONE (23:00)
[2019-12-28] MEDS ORDERED: SENNOSIDES/DOCUSATE 8.6-50 MG 1 EACH TABLET PO ONE (23:00)
[2019-12-28] MEDS ORDERED: ATORVASTATIN CALCIUM 10 MG TABLET PO ONE (23:15)
[2019-12-29] MEDS: DILTIAZEM HCL/D5W 125 MG/125 ML RTUINJ IV PRN ×2 (04:14→12:19)
[2019-12-29 05:30] LABS: CREATINE KINASE MB 0.52 ng/mL (<4.55)
[2019-12-29 05:36] LABS: TROPONIN I < 0.012 ng/mL
[2019-12-29] MEDS: PANTOPRAZOLE SODIUM 40 MG TABLET.DR PO SCH (08:02)
[2019-12-29] MEDS: ASPIRIN 325 MG TABLET PO SCH (09:26)
[2019-12-29] MEDS: VENLAFAXINE HCL 75 MG CAP.SR.24H PO SCH (09:26)
[2019-12-29] MEDS: METOPROLOL TARTRATE 25 MG TABLET PO SCH ×2 (09:27→17:59)
[2019-12-29] MEDS: SUCRALFATE 1 GM TABLET PO SCH ×4 (09:27→21:34)
[2019-12-29] MEDS: ENOXAPARIN SODIUM INJ 40 MG/0.4 ML DISP.SYRIN SUBCUT SCH ×2 (09:27→09:44)
[2019-12-29] MEDS: POLYETHYLENE GLYCOL 3350 POWDER 17 GM/1 PACKET PO SCH (09:44)
[2019-12-29] MEDS: SENNOSIDES/DOCUSATE 8.6-50 MG 1 EACH TABLET PO SCH ×2 (09:45→17:38)
[2019-12-29 11:39] LABS: CREATINE KINASE MB 0.46 ng/mL (<4.55)
[2019-12-29 11:40] LABS: TROPONIN I < 0.012 ng/mL
[2019-12-29 14:24] LABS: APPEARANCE,URINE SLIGHTLY-CLOUDY; BILIRUBIN,URINE NEGATIVE (NEGATIVE); COLOR,URINE YELLOW; GLUCOSE, URINE NEGATIVE (NEGATIVE); KETONES,URINE NEGATIVE (NEGATIVE); LEUKOCYTE ESTERASE,URINE NEGATIVE (NEGATIVE); NITRITE,URINE NEGATIVE (NEGATIVE); PROTEIN,URINE NEGATIVE (NEGATIVE); URINE SPECIFIC GRAVITY 1.018; UROBILINOGEN,URINE NEGATIVE mg/dL (<2.0)
[2019-12-29] MEDS: ACETAMINOPHEN 325 MG TABLET PO PRN (20:34)
[2019-12-29] MEDS: MONTELUKAST SODIUM 10 MG TABLET PO SCH (21:34)
[2019-12-29] MEDS: ATORVASTATIN CALCIUM 10 MG TABLET PO SCH (21:34)
--- NOTE | 2019-12-29 22:40 | PDOC H&P ---
History of Present Illness Admission Date/PCP: 12/29/19 13:27 AARTI MORRISON MD History of Present Illness: YESENIA HIGGINS is a 64 year old female, She has a history of CVA status post decompression craniotomy in early November 2019, she came to emergency room for evaluation of headache and right-sided head swelling, in the emergency room CAT scan of the head was done, demonstrated normal size ventricle no hemorrhage, no midline shift, large area of decreased density and encephalomalacia in the right frontal, temporal and parietal lobes no masses no hemorrhage. She was noticed in the emergency room to be in atrial fibrillation with rapid ventricular response, she was then started on intravenous Cardizem infusion. She presented in the same manner the last time she was in the hospital, the last time she was admitted she had atrial fibrillation with rapid ventricular response associated with period of long pauses consistent with sick sinus syndrome. The plan was for her to follow outpatient with EPS, digital pre press operator with the intent to have a pacemaker.Unfortunately she returned to the emergency room for evaluation of headache and again she was found to be in atrial fibrillation with rapid ventricular response, inpatient care was recommended by the ED physician. Past Medical History Cardiac Medical History: Reports: Atrial Fibrillation, Hypertension Pulmonary Medical History: Reports: Asthma Neurological Medical History: Reports: Ischemic CVA Endocrine Medical History: Reports: Diabetes Mellitus Type 2 Psychiatric Medical History: Reports: Depression Past Surgical History Past Surgical History: Reports: Tubal Ligation Social History Lives with: Family Smoking Status: Former Smoker Frequency of Alcohol Use: None Hx Recreational Drug Use: No Drugs: None Hx Prescription Drug Abuse: No Family History Family History: Reviewed & Not Pertinent Parental Family History Reviewed: Yes Children Family History Reviewed: Yes Sibling(s) Family History Reviewed.: Yes Medication/Allergy Home Medications: Albuterol Sulfate [Ventolin Hfa 8 gm Mdi] 2 puff IH TID 12/21/19 Aspirin [Aspirin 325 mg Tablet] 325 mg PO DAILY 12/21/19 Hydrochlorothiazide [Hydrodiuril 25 mg Tablet] 12.5 mg PO DAILY 12/21/19 Metoprolol Tartrate [Lopressor 25 mg Tablet] 25 mg PO BID 12/21/19 Montelukast Sodium [Singulair 10 mg Tablet] 10 mg PO QHS 12/21/19 Pantoprazole Sodium [Protonix [address] Tablet] 40 mg PO QAM 12/21/19 Polyethylene Glycol 3350 [Miralax] 1 dose PO DAILY 12/21/19 Pravastatin Sodium 40 mg PO QHS 12/21/19 Sennosides/Docusate 8.6-50 mg [Senna Plus Tablet] 1 tab PO BID 12/21/19 Sucralfate [Carafate 1 gm Tablet] 1 gm PO QID 12/21/19 Venlafaxine HCl ER [Effexor Xr 75 mg Cap.sr] 75 mg PO DAILY 12/21/19 Acetaminophen [Tylenol 325 mg Tablet] 650 mg PO Q4HP PRN tablet 12/23/19 Ergocalciferol (Vitamin D2) [Vitamin D2] 50,000 unit PO GIRON@1000 12/28/19 Allergies/Adverse Reactions: baclofen Allergy (Verified 12/20/19 20:12) morphine Allergy (Verified 12/20/19 20:12) Review of Systems Constitutional: PRESENT: headache(s) Ears: ABSENT: hearing changes Cardiovascular: ABSENT: chest pain, dyspnea on exertion, edema, orthropnea, palpitations Respiratory: ABSENT: cough, hemoptysis Gastrointestinal: ABSENT: abdominal pain, constipation, diarrhea, hematemesis, hematochezia, nausea, vomiting Genitourinary: ABSENT: dysuria, hematuria Musculoskeletal: ABSENT: joint swelling Integumentary: ABSENT: rash, wounds Neurological: PRESENT: abnormal gait, paresthesias Psychiatric: PRESENT: anxiety Endocrine: ABSENT: cold intolerance, heat intolerance, menstrual abnormalities, polydipsia, polyuria Hematologic/Lymphatic: ABSENT: easy bleeding, easy bruising, lymphadenopathy Physical Exam Vital Signs: Temp Pulse Resp BP Pulse Ox 98.3 F 91 22 H 108/64 96 12/29/19 20:24 12/29/19 21:34 12/29/19 20:24 12/29/19 21:34 12/29/19 20:24 Intake & Output 12/28/19 12/29/19 12/30/19 06:59 06:59 06:59 Intake Total 385 288 Output Total 0 Balance 385 288 Weight 110.4 kg Head exam: PRESENT: atraumatic, other - There is a large defect of the right skull status post craniotomy I do not appreciate any swelling Eye exam: PRESENT: PERRLA Ear exam: PRESENT: normal external ear exam Mouth exam: PRESENT: moist, tongue midline Neck exam: PRESENT: full ROM Respiratory exam: PRESENT: clear to auscultation mey Cardiovascular exam: PRESENT: RRR, +S1, +S2 Vascular exam: PRESENT: normal capillary refill GI/Abdominal exam: PRESENT: normal bowel sounds, soft Rectal exam: PRESENT: deferred Neurological exam: PRESENT: alert, motor sensory deficit Skin exam: ABSENT: cyanosis, rash Results Laboratory Results: 12/28/19 16:40 12/28/19 16:40 12/28/19 12/29/19 16:40 13:50 Magnesium 1.8 Urine Color YELLOW Urine Appearance SLIGHTLY-CLOUDY Urine pH 6.0 Ur Specific [place] 1.018 Urine Protein NEGATIVE Urine Glucose (UA) NEGATIVE Urine Ketones NEGATIVE Urine Blood NEGATIVE Urine Nitrite NEGATIVE Ur Leukocyte Esterase NEGATIVE Urine WBC (Auto) 2 Urine RBC (Auto) 13 12/28/19 12/28/19 12/28/19 16:40 20:53 20:53 Creatine Kinase < 20 L CK-MB (CK-2) 0.29 Troponin I < 0.012 Cancelled 12/29/19 12/29/19 04:32 10:39 Creatine Kinase CK-MB (CK-2) 0.52 0.46 Troponin I < 0.012 < 0.012 Impressions: Head CT 12/28/19 00:00 IMPRESSION: SURGICAL CHANGES. LARGE CRANIECTOMY DEFECT ON THE RIGHT SIDE WITH PRESUMED CHRONIC CHANGES IN THE RIGHT CEREBRAL HEMISPHERE. NO DEFINITE ACUTE FINDINGS. NO PRIOR STUDIES FOR COMPARISON. EVIDENCE OF ACUTE STROKE: NO. Assessment & Plan - Diagnosis (1) Atrial fibrillation with RVR Is this a current diagnosis for this admission?: Yes Plan: Patient on Cardizem infusion for rate control, patient is not presently a candidate for chronic anticoagulation because of recent craniotomy in the last month. Because of atrial fibrillation she needs anticoagulation but because of recent craniotomy that is contraindicated because of increased risk of intracranial hemorrhage (2) Sick sinus syndrome Is this a current diagnosis for this admission?: Yes Plan: The last time she was admitted she had sick sinus syndrome, she was supposed to follow-up with digital pre press operator for evaluation of this condition and for p ossible permanent pacemaker placement - Time Time Spent: Greater than 70 Minutes Medications reviewed and adjusted accordingly: Yes Anticipated Discharge Disposition: Home, Self Care Anticipated Discharge Timeframe: within 72 hours
--- NOTE | 2019-12-29 22:46 | PDOC PROGRESS REPORT ---
Subjective Progress Note for:: 12/29/19 Subjective:: Patient was admitted yesterday for the management of atrial fibrillation with rapid ventricular response, she was seen today with the family in the room, I explained plan of care Reason For Visit: A-FIB WITH RVR Physical Exam Vital Signs: Temp Pulse Resp BP Pulse Ox 98.3 F 91 22 H 108/64 96 12/29/19 20:24 12/29/19 21:34 12/29/19 20:24 12/29/19 21:34 12/29/19 20:24 Intake & Output 12/28/19 12/29/19 12/30/19 06:59 06:59 06:59 Intake Total 385 288 Output Total 0 Balance 385 288 Weight 110.4 kg General appearance: PRESENT: no acute distress Eye exam: PRESENT: PERRLA Respiratory exam: PRESENT: clear to auscultation mey Cardiovascular exam: PRESENT: +S1, +S2 GI/Abdominal exam: PRESENT: soft Neurological exam: PRESENT: alert Results Laboratory Results: 12/28/19 16:40 12/28/19 16:40 12/28/19 12/29/19 16:40 13:50 Magnesium 1.8 Urine Color YELLOW Urine Appearance SLIGHTLY-CLOUDY Urine pH 6.0 Ur Specific [place] 1.018 Urine Protein NEGATIVE Urine Glucose (UA) NEGATIVE Urine Ketones NEGATIVE Urine Blood NEGATIVE Urine Nitrite NEGATIVE Ur Leukocyte Esterase NEGATIVE Urine WBC (Auto) 2 Urine RBC (Auto) 13 12/28/19 12/28/19 12/28/19 16:40 20:53 20:53 Creatine Kinase < 20 L CK-MB (CK-2) 0.29 Troponin I < 0.012 Cancelled 12/29/19 12/29/19 04:32 10:39 Creatine Kinase CK-MB (CK-2) 0.52 0.46 Troponin I < 0.012 < 0.012 Impressions: Head CT 12/28/19 00:00 IMPRESSION: SURGICAL CHANGES. LARGE CRANIECTOMY DEFECT ON THE RIGHT SIDE WITH PRESUMED CHRONIC CHANGES IN THE RIGHT CEREBRAL HEMISPHERE. NO DEFINITE ACUTE FINDINGS. NO PRIOR STUDIES FOR COMPARISON. EVIDENCE OF ACUTE STROKE: NO. Assessment & Plan - Diagnosis (1) Atrial fibrillation with RVR Is this a current diagnosis for this admission?: Yes Plan: She will continue IV Cardizem infusion for rate control (2) Sick sinus syndrome Is this a current diagnosis for this admission?: Yes - Time Time Spent with patient: 25-34 minutes Level of Care: IMCU Medications reviewed and adjusted accordingly: Yes Anticipated discharge: Home Anticipated DC Timeframe: within 72 hours
[2019-12-30] MEDS: METOPROLOL TARTRATE 25 MG TABLET PO SCH ×2 (09:15→17:43)
[2019-12-30] MEDS: SENNOSIDES/DOCUSATE 8.6-50 MG 1 EACH TABLET PO SCH ×2 (09:15→17:43)
[2019-12-30] MEDS: POLYETHYLENE GLYCOL 3350 POWDER 17 GM/1 PACKET PO SCH (09:15)
[2019-12-30] MEDS: SUCRALFATE 1 GM TABLET PO SCH ×4 (09:15→22:11)
[2019-12-30] MEDS: ENOXAPARIN SODIUM INJ 40 MG/0.4 ML DISP.SYRIN SUBCUT SCH (09:16)
[2019-12-30] MEDS: ASPIRIN 325 MG TABLET PO SCH (09:16)
[2019-12-30] MEDS: VENLAFAXINE HCL 75 MG CAP.SR.24H PO SCH (09:16)
[2019-12-30] MEDS: PANTOPRAZOLE SODIUM 40 MG TABLET.DR PO SCH (09:16)
[2019-12-30] MEDS: DILTIAZEM HCL/D5W 125 MG/125 ML RTUINJ IV PRN (11:08)
--- NOTE | 2019-12-30 11:11 | PDOC PROGRESS REPORT ---
Subjective Progress Note for:: 12/30/19 Subjective:: Patient was admitted for the atrial fibrillation with rapid ventricular response with a history of the sick sinus syndrome supposed to be have a pacemaker placement by Dr. Calderon but patients never follow Patient is currently on IV Cardizem drips Patient unable to take anticoagulations due to recent craniotomy Denied any chest pain no short of breath Reason For Visit: A-FIB WITH RVR Physical Exam Vital Signs: Temp Pulse Resp BP Pulse Ox 97.5 F 104 H 16 108/67 97 12/30/19 08:43 12/30/19 10:00 12/30/19 08:00 12/30/19 09:00 12/30/19 08:00 Intake & Output 12/29/19 12/30/19 12/31/19 06:59 06:59 06:59 Intake Total 385 448 68 Output Total 0 Balance 385 448 68 Weight 110.4 kg 112.3 kg General appearance: PRESENT: no acute distress Head exam: PRESENT: atraumatic, normocephalic Eye exam: PRESENT: conjunctiva pink, EOMI, PERRLA. ABSENT: scleral icterus Ear exam: PRESENT: normal external ear exam Mouth exam: PRESENT: moist, tongue midline Neck exam: PRESENT: full ROM. ABSENT: carotid bruit, JVD, lymphadenopathy, thyromegaly Respiratory exam: PRESENT: clear to auscultation mey Cardiovascular exam: PRESENT: RRR. ABSENT: diastolic murmur, rubs, systolic murmur Pulses: PRESENT: normal dorsalis pedis pul, +2 pedal pulses bilateral Vascular exam: PRESENT: normal capillary refill GI/Abdominal exam: PRESENT: normal bowel sounds, soft. ABSENT: distended, guarding, mass, organolmegaly, rebound, tenderness Rectal exam: PRESENT: deferred Neurological exam: PRESENT: alert, awake, oriented to person, oriented to place, oriented to time, oriented to situation. ABSENT: motor sensory deficit Additional comments: Left-sided weakness due to the stroke Psychiatric exam: PRESENT: appropriate affect, normal mood. ABSENT: homicidal ideation, suicidal ideation Skin exam: PRESENT: dry, intact, warm. ABSENT: cyanosis, rash Results Laboratory Results: 12/28/19 16:40 12/28/19 16:40 12/29/19 13:50 Urine Color YELLOW Urine Appearance SLIGHTLY-CLOUDY Urine pH 6.0 Ur Specific [place] 1.018 Urine Protein NEGATIVE Urine Glucose (UA) NEGATIVE Urine Ketones NEGATIVE Urine Blood NEGATIVE Urine Nitrite NEGATIVE Ur Leukocyte Esterase NEGATIVE Urine WBC (Auto) 2 Urine RBC (Auto) 13 12/28/19 12/28/19 12/28/19 16:40 20:53 20:53 Creatine Kinase < 20 L CK-MB (CK-2) 0.29 Troponin I < 0.012 Cancelled 12/29/19 12/29/19 04:32 10:39 Creatine Kinase CK-MB (CK-2) 0.52 0.46 Troponin I < 0.012 < 0.012 Impressions: Head CT 12/28/19 00:00 IMPRESSION: SURGICAL CHANGES. LARGE CRANIECTOMY DEFECT ON THE RIGHT SIDE WITH PRESUMED CHRONIC CHANGES IN THE RIGHT CEREBRAL HEMISPHERE. NO DEFINITE ACUTE FINDINGS. NO PRIOR STUDIES FOR COMPARISON. EVIDENCE OF ACUTE STROKE: NO. Assessment & Plan - Diagnosis (1) Atrial fibrillation with RVR Is this a current diagnosis for this admission?: Yes (2) S/P craniotomy Is this a current diagnosis for this admission?: Yes (3) Sick sinus syndrome Is this a current diagnosis for this admission?: Yes - Time Time Spent with patient: 15-24 minutes Level of Care: IMCU Medications reviewed and adjusted accordingly: Yes Anticipated discharge: Home Anticipated DC Timeframe: Other - Plan Summary Plan Summary: We will consult the cardiology while patient is very noncompliance to follow as outpatient Continues to Delores fishman Continues the aspirin
--- NOTE | 2019-12-30 15:11 | PDOC CONSULTATION ---
Consultation Consult Date: 12/30/19 Attending physician:: OSEI CHANEY Provider Consulted: JACY LINDSEY Consult reason:: Atrial fibrillation History of Present Illness Admission Date/PCP: 12/29/19 13:27 AARTI MORRISON MD Patient complains of: Palpitations History of Present Illness: YESENIA HIGGINS is a 64 year old female Bowels 1. 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 Hemicraniectomy 12/05/2019 3. Systemic hypertension 4. Dyslipidemia 5. Diabetes mellitus 6. Asthma 7. Nicotine dependence in remission 8. Atrial fibrillation Patient was admitted previously to the hospital in December of this year with atrial fibrillation with rapid ventricular response. Ventricular rate was controlled with intravenous catheter blockers and with concomitant use of beta- blockers there was mention of some bradycardia which appeared to have resolved. Patient is not on systemic anticoagulation at this moment due to complications from cerebral edema and her being status post craniectomy. At the moment she does not smoke cigarettes No female illnesses reported Review of systems positive for palpitations negative for dyspnea or chest pain. Full 11 review of systems was asked. Pertinent positives noted here and in the HPI all other systems are negative. Past Medical History Cardiac Medical History: Reports: Atrial Fibrillation, Hypertension Pulmonary Medical History: Reports: Asthma Neurological Medical History: Reports: Ischemic CVA Endocrine Medical History: Reports: Diabetes Mellitus Type 2 Psychiatric Medical History: Reports: Depression Past Surgical History Past Surgical History: Reports: Tubal Ligation Social History Lives with: Family Smoking Status: Former Smoker Frequency of Alcohol Use: None Hx Recreational Drug Use: No Drugs: None Hx Prescription Drug Abuse: No Family History Family History: Reviewed & Not Pertinent Parental Family History Reviewed: Yes - No familial illnesses reported or documented Children Family History Reviewed: NA Sibling(s) Family History Reviewed.: NA Medication/Allergy Home Medications: Albuterol Sulfate [Ventolin Hfa 8 gm Mdi] 2 puff IH TID 12/21/19 Aspirin [Aspirin 325 mg Tablet] 325 mg PO DAILY 12/21/19 Hydrochlorothiazide [Hydrodiuril 25 mg Tablet] 12.5 mg PO DAILY 12/21/19 Metoprolol Tartrate [Lopressor 25 mg Tablet] 25 mg PO BID 12/21/19 Montelukast Sodium [Singulair 10 mg Tablet] 10 mg PO QHS 12/21/19 Pantoprazole Sodium [Protonix [address] Tablet] 40 mg PO QAM 12/21/19 Polyethylene Glycol 3350 [Miralax] 1 dose PO DAILY 12/21/19 Pravastatin Sodium 40 mg PO QHS 12/21/19 Sennosides/Docusate 8.6-50 mg [Senna Plus Tablet] 1 tab PO BID 12/21/19 Sucralfate [Carafate 1 gm Tablet] 1 gm PO QID 12/21/19 Venlafaxine HCl ER [Effexor Xr 75 mg Cap.sr] 75 mg PO DAILY 12/21/19 Acetaminophen [Tylenol 325 mg Tablet] 650 mg PO Q4HP PRN tablet 12/23/19 Ergocalciferol (Vitamin D2) [Vitamin D2] 50,000 unit PO GIRON@1000 12/28/19 Allergies/Adverse Reactions: baclofen Allergy (Verified 12/20/19 20:12) morphine Allergy (Verified 12/20/19 20:12) Review of Systems Constitutional: ABSENT: as per HPI, anorexia, chills, fatigue, fever(s), headache(s), night sweats, weakness, weight gain, weight loss, other Cardiovascular: PRESENT: palpitations Respiratory: ABSENT: as per HPI, cough, dyspnea, hemoptysis, sputum, other Genitourinary: ABSENT: as per HPI, difficulty urinating, dysuria, hematuria, nocturia, other Neurological: PRESENT: other Psychiatric: ABSENT: as per HPI, anxiety, depression, hallucinations, homidical ideation, suicidal ideation, other Physical Exam Vital Signs: Temp Pulse Resp BP Pulse Ox 97.5 F 86 16 120/83 97 12/30/19 08:43 12/30/19 14:00 12/30/19 08:00 12/30/19 13:00 12/30/19 08:00 Intake & Output 12/29/19 12/30/19 12/31/19 06:59 06:59 06:59 Intake Total 385 448 193 Output Total 0 Balance 385 448 193 Weight 110.4 kg 112.3 kg General appearance: PRESENT: cooperative, obese, well-developed, well-nourished Head exam: PRESENT: other - Postsurgical changes from hemicraniectomy on the right side of the head the. Eye exam: PRESENT: conjunctiva pink, EOMI Respiratory exam: PRESENT: decreased breath sounds, prolonged expiratory phas, symmetrical, unlabored Cardiovascular exam: PRESENT: irregular rhythm, +S1, +S2 Pulses: PRESENT: normal radial pulses GI/Abdominal exam: PRESENT: soft Rectal exam: PRESENT: deferred Neurological exam: PRESENT: alert, awake, oriented to person, oriented to place Psychiatric exam: PRESENT: flat affect Skin exam: PRESENT: dry, intact Results Laboratory Results: 12/28/19 16:40 12/28/19 16:40 12/28/19 12/28/19 12/28/19 16:40 20:53 20:53 Creatine Kinase < 20 L CK-MB (CK-2) 0.29 Troponin I < 0.012 Cancelled 12/29/19 12/29/19 04:32 10:39 Creatine Kinase CK-MB (CK-2) 0.52 0.46 Troponin I < 0.012 < 0.012 EKG Comments: Transthoracic echocardiogram 12/21/2019 Left atrial ejection fraction 60 to 65% Question of inlet VSD Mild MR, mild AI, mild TR, mild PI There is no pericardial effusion Twelve-lead EKG 12/20/2019 Atrial fibrillation rapid ventricular response 152 bpm Lead EKG 12/28/2019 Atrial fibrillation with rapid ventricular response [address] 12/28/2019 Surgical changes craniectomy defect on the right side chronic changes in the right cerebral hemisphere no acute findings troponin X 2019 -x2 Impressions: Head CT 12/28/19 00:00 IMPRESSION: SURGICAL CHANGES. LARGE CRANIECTOMY DEFECT ON THE RIGHT SIDE WITH PRESUMED CHRONIC CHANGES IN THE RIGHT CEREBRAL HEMISPHERE. NO DEFINITE ACUTE FINDINGS. NO PRIOR STUDIES FOR COMPARISON. EVIDENCE OF ACUTE STROKE: NO. Assessment & Plan - Diagnosis (1) Atrial fibrillation Qualifiers: Atrial fibrillation type: unspecified Qualified Code(s): I48.91 - Unspecified atrial fibrillation Is this a current diagnosis for this admission?: Yes Plan: Presently her atrial fibrillation is better rate controlled with a ventricular rate in the 106 bpm range this morning on telemetry at the time of my exam Diltiazem infusion has been discontinued I would recommend continuing low-dose beta-dong for rate control with poss ible addition of digoxin as necessary On the previous visit there were some episodes mentioned of bradycardia. Due to this caution is necessary Patient does not indicate any symptoms suggestive of chronotropic incompetence or sick sinus syndrome such as dizziness or syncope. There is no urgent indication to pursue cardiac pacing. At this moment we will continue to monitor on telemetry. Given intracranial complication status post stroke and with surgery neurology input is required to pursue systemic anticoagulation. At the moment we will hold off
[2019-12-30] MEDS: ATORVASTATIN CALCIUM 10 MG TABLET PO SCH (22:11)
[2019-12-30] MEDS: MONTELUKAST SODIUM 10 MG TABLET PO SCH (22:11)
[2019-12-31 05:23] LABS: ABSOLUTE EOSINOPHILS # (AUTO) 0.5 10^3/uL (0.0-0.6); ABSOLUTE LYMPHOCYTES (AUTO) 2.1 10^3/uL (0.5-4.7); ABSOLUTE MONOCYTES (AUTO) 0.6 10^3/uL (0.1-1.4); ABSOLUTE NEUT (AUTO) 3.9 10^3/uL (1.7-8.2); BASOPHILS % (AUTO) 0.6 % (0-2); EOSINOPHILS % (AUTO) 7.3 % (0-6); HEMATOCRIT 34.4 % (36.0-47.0); HEMOGLOBIN 11.8 g/dL (12.0-15.5); LYMPHOCYTES % (AUTO) 29.5 % (13-45); MEAN CORPUSCULAR HEMOGLOBIN 28.5 pg (27.0-33.4); MEAN CORPUSCULAR HGB CONC 34.3 g/dL (32.0-36.0); MEAN CORPUSCULAR VOLUME 83 fl (80-97); MONOCYTES % (AUTO) 8.4 % (3-13); PLATELET COUNT 214 10^3/uL (150-450); RED BLOOD COUNT 4.14 10^6/uL (3.72-5.28); RED CELL DISTRIBUTION WIDTH 17.6 % (11.5-14.0); SEGMENTED NEUTROPHILS % (AUTO) 54.2 % (42-78); TOTAL CELLS COUNTED % (AUTO) 100 %; WHITE BLOOD COUNT 7.2 10^3/uL (4.0-10.5)
[2019-12-31 05:53] LABS: BLOOD UREA NITROGEN 12 mg/dL (7-20); CALCIUM 9.4 mg/dL (8.4-10.2); GLUCOSE 107 mg/dL (75-110); POTASSIUM 3.9 mmol/L (3.6-5.0)
[2019-12-31 06:05] LABS: CARBON DIOXIDE 28 mmol/L (22-30); CHLORIDE 104 mmol/L (98-107)
[2019-12-31 06:14] LABS: ANION GAP 9 (5-19)
[2019-12-31] MEDS: PANTOPRAZOLE SODIUM 40 MG TABLET.DR PO SCH (07:42)
[2019-12-31] MEDS ORDERED: ERGOCALCIFEROL (VITAMIN D2) 50000 UNIT (1.25 MG) CAPSULE PO SCH (10:00)
--- NOTE | 2019-12-31 10:10 | PDOC PROGRESS REPORT ---
Subjective Progress Note for:: 12/31/19 Subjective:: Patient is currently doing well Denied any chest pain no short of breath Patient heart rate is running 80-1 30 range Discussed with the cardiology and suggest if needed at the digoxin Continues on low pressures No need for any immediate pacemaker placement Reason For Visit: A-FIB WITH RVR Physical Exam Vital Signs: Temp Pulse Resp BP Pulse Ox 97.4 F 120 H 28 H 135/63 H 97 12/31/19 10:00 12/31/19 07:00 12/31/19 03:24 12/31/19 03:24 12/31/19 03:24 Intake & Output 12/30/19 12/31/19 01/01/20 06:59 06:59 06:59 Intake Total 448 583 Balance 448 583 Weight 112.3 kg 111.5 kg General appearance: PRESENT: no acute distress, well-developed, well-nourished Head exam: PRESENT: atraumatic, normocephalic Eye exam: PRESENT: conjunctiva pink, EOMI, PERRLA. ABSENT: scleral icterus Ear exam: PRESENT: normal external ear exam Mouth exam: PRESENT: moist, tongue midline Neck exam: PRESENT: full ROM. ABSENT: carotid bruit, JVD, lymphadenopathy, thyromegaly Cardiovascular exam: PRESENT: RRR. ABSENT: diastolic murmur, rubs, systolic murmur Vascular exam: PRESENT: normal capillary refill GI/Abdominal exam: PRESENT: normal bowel sounds, soft. ABSENT: distended, guarding, mass, organolmegaly, rebound, tenderness Rectal exam: PRESENT: deferred Neurological exam: PRESENT: alert, awake, oriented to person, oriented to place, oriented to time, oriented to situation. ABSENT: motor sensory deficit Psychiatric exam: PRESENT: appropriate affect, normal mood. ABSENT: homicidal ideation, suicidal ideation Skin exam: PRESENT: dry, intact, warm. ABSENT: cyanosis, rash Results Laboratory Results: 12/31/19 04:50 12/31/19 04:50 12/31/19 12/31/19 04:50 04:50 WBC 7.2 RBC 4.14 Hgb 11.8 L Hct 34.4 L MCV 83 MCH 28.5 MCHC 34.3 RDW 17.6 H Plt Count 214 Seg Neutrophils % 54.2 Sodium 140.8 Potassium 3.9 Chloride 104 Carbon Dioxide 28 Anion Gap 9 BUN 12 Creatinine 0.66 Est GFR ( Amer) > 60 Glucose 107 Calcium 9.4 12/28/19 12/28/19 12/28/19 16:40 20:53 20:53 Creatine Kinase < 20 L CK-MB (CK-2) 0.29 Troponin I < 0.012 Cancelled 12/29/19 12/29/19 04:32 10:39 Creatine Kinase CK-MB (CK-2) 0.52 0.46 Troponin I < 0.012 < 0.012 Impressions: Head CT 12/28/19 00:00 IMPRESSION: SURGICAL CHANGES. LARGE CRANIECTOMY DEFECT ON THE RIGHT SIDE WITH PRESUMED CHRONIC CHANGES IN THE RIGHT CEREBRAL HEMISPHERE. NO DEFINITE ACUTE FINDINGS. NO PRIOR STUDIES FOR COMPARISON. EVIDENCE OF ACUTE STROKE: NO. Assessment & Plan - Diagnosis (1) Atrial fibrillation with RVR Is this a current diagnosis for this admission?: Yes (2) S/P craniotomy Is this a current diagnosis for this admission?: Yes (3) Sick sinus syndrome Is this a current diagnosis for this admission?: Yes - Time Time Spent with patient: 15-24 minutes Level of Care: IMCU Medications reviewed and adjusted accordingly: Yes Anticipated discharge: Home with Homehealth Anticipated DC Timeframe: within 48 hours - Plan Summary Plan Summary: Add the digoxin 0.125 daily Continues to Lopressor If is remained stable hopefully discharge tomorrow
[2019-12-31] MEDS: ASPIRIN 325 MG TABLET PO SCH (10:35)
[2019-12-31] MEDS: METOPROLOL TARTRATE 25 MG TABLET PO SCH ×2 (10:35→17:24)
[2019-12-31] MEDS: SENNOSIDES/DOCUSATE 8.6-50 MG 1 EACH TABLET PO SCH ×2 (10:35→17:24)
[2019-12-31] MEDS: VENLAFAXINE HCL 75 MG CAP.SR.24H PO SCH (10:36)
[2019-12-31] MEDS: POLYETHYLENE GLYCOL 3350 POWDER 17 GM/1 PACKET PO SCH (10:36)
[2019-12-31] MEDS: SUCRALFATE 1 GM TABLET PO SCH ×4 (10:36→21:35)
[2019-12-31] MEDS: ENOXAPARIN SODIUM INJ 40 MG/0.4 ML DISP.SYRIN SUBCUT SCH (10:53)
[2019-12-31] MEDS: DIGOXIN 0.125 MG TABLET PO SCH (11:37)
--- NOTE | 2019-12-31 16:27 | EKG REPORT ---
SEVERITY:- BORDERLINE ECG - WANDERING PACEMAKER, Consider AFIB : Confirmed by: Magalie Velasquez 31-Dec-2019 16:26:52
[2019-12-31] MEDS: ATORVASTATIN CALCIUM 10 MG TABLET PO SCH (21:35)
[2019-12-31] MEDS: MONTELUKAST SODIUM 10 MG TABLET PO SCH (21:35)
--- NOTE | 2019-12-31 22:27 | CDI QUERY ---
CDI Query CDI Review: We are seeking further clarification of documentation to reflect the severity of illness of your patient. Documented in the H&P: Atrial fibrillation with RVR Patient on Cardizem infusion for rate control, patient is not presently a candidate for chronic anticoagulation because of recent craniotomy in the last month. Because of atrial fibrillation she needs anticoagulation but because of recent craniotomy that is contraindicated because of increased risk of intracranial hemorrhage Based on your medical judgement, can you further clarify in the Progress Notes if the Atrial Fibrillation can be further specified: Persistent Atrial fibrillation Chronic (Permanent) Atrial fibrillation Other Unable to determine Thank you for your consideration. KHANG Ho RN Clinical Wire M[employer] Knitter Physician Advisor
[2020-01-01 06:32] LABS: ANION GAP 10 (5-19); BLOOD UREA NITROGEN 17 mg/dL (7-20); CALCIUM 9.3 mg/dL (8.4-10.2); CARBON DIOXIDE 27 mmol/L (22-30); CHLORIDE 106 mmol/L (98-107); GLUCOSE 109 mg/dL (75-110)
[2020-01-01] MEDS: METOPROLOL TARTRATE 25 MG TABLET PO SCH ×3 (09:07→22:25)
[2020-01-01] MEDS: VENLAFAXINE HCL 75 MG CAP.SR.24H PO SCH (09:07)
[2020-01-01] MEDS: PANTOPRAZOLE SODIUM 40 MG TABLET.DR PO SCH (09:07)
[2020-01-01] MEDS: ASPIRIN 325 MG TABLET PO SCH (09:07)
[2020-01-01] MEDS: SENNOSIDES/DOCUSATE 8.6-50 MG 1 EACH TABLET PO SCH ×2 (09:07→17:07)
[2020-01-01] MEDS: SUCRALFATE 1 GM TABLET PO SCH ×4 (09:08→21:10)
[2020-01-01] MEDS: ENOXAPARIN SODIUM INJ 40 MG/0.4 ML DISP.SYRIN SUBCUT SCH (09:08)
[2020-01-01] MEDS: DIGOXIN 0.125 MG TABLET PO SCH (09:08)
[2020-01-01] MEDS: POLYETHYLENE GLYCOL 3350 POWDER 17 GM/1 PACKET PO SCH (09:08)
--- NOTE | 2020-01-01 09:49 | PDOC PROGRESS REPORT ---
Subjective Progress Note for:: 01/01/20 Subjective:: 64-year-old female well-known to me from a prior admission who was readmitted on 12/29/2019 for rapid atrial fibrillation in the setting of a severe headache. The patient was previously admitted on 12/20/2019 for rapid A. fib. Her heart rate was significantly improved on Lopressor 50 mg every 6 hours however she had significant pauses as well as episodes of rapid ventricular response worrisome for sick sinus syndrome therefore we recommend that his Lopressor to be decreased to 25 mg p.o. every 6 hours. Unfortunately the patient was discharged on Lopressor 25 mg twice daily and developed rapid A. fib. She was consulted to my partner, Dr. Green on 12/30/2019 who recommended the addition of digoxin. The patient feels well this morning and denies chest pain, palpitations, syncope or presyncope however complains of mild shortness of breath. His telemetry continues to show atrial fibrillation with RVR with heart rates up to 150 to 160 bpm. Physical exam on 01/01/2020: GENERAL: Oriented x3 with normal mood. Not in acute distress. Well groomed and well developed. The patient is noted to have her medications in her mouth but unable to swallow. HEENT: Normocephalic, atraumatic. Pupils equal. Sclerae anicteric. Oropharynx moist. NECK: No JVD. No carotid bruits. LUNGS: Clear to auscultation bilaterally. Normal respiratory effort without the use of accessory muscles or intercostal retractions. CARDIOVASCULAR: Irregularly irregular rate and rhythm without murmurs, rubs, or gallops. PMI not displaced. ABDOMEN: No masses or tenderness to palpation. No bruit. No splenomegaly or hepatomegaly. No abdominal aorta bruit noted. EXTREMITIES: Trace pitting edema bilaterally, no cyanosis, no clubbing. +2 pulses femoral and pedal pulses bilaterally. SKIN: No lesions or rashes. MUSCULOSKELETAL: No chest tenderness to palpation. Cardiac studies: Echocardiogram on 12/21/2019: -EF 60 to 65%. -No wall motion abnormalities. -Possible inlet VSD. -Mild MR, mild AI, mild TR, mild PI. Reason For Visit: A-FIB WITH RVR Physical Exam Vital Signs: Temp Pulse Resp BP Pulse Ox 98.4 F 108 H 20 122/78 97 01/01/20 07:53 01/01/20 07:00 01/01/20 03:23 01/01/20 03:23 01/01/20 03:23 Intake & Output 12/31/19 01/01/20 01/02/20 06:59 06:59 06:59 Intake Total 583 920 Balance 583 920 Weight 111.5 kg 111.5 kg Results Laboratory Results: 12/31/19 04:50 01/01/20 05:09 01/01/20 05:09 Sodium 143.1 Potassium 4.0 Chloride 106 Carbon Dioxide 27 Anion Gap 10 BUN 17 Creatinine 0.66 Est GFR ( Amer) > 60 Glucose 109 Calcium 9.3 12/28/19 12/28/19 12/28/19 16:40 20:53 20:53 Creatine Kinase < 20 L CK-MB (CK-2) 0.29 Troponin I < 0.012 Cancelled 12/29/19 12/29/19 04:32 10:39 Creatine Kinase CK-MB (CK-2) 0.52 0.46 Troponin I < 0.012 < 0.012 Impressions: Head CT 12/28/19 00:00 IMPRESSION: SURGICAL CHANGES. LARGE CRANIECTOMY DEFECT ON THE RIGHT SIDE WITH PRESUMED CHRONIC CHANGES IN THE RIGHT CEREBRAL HEMISPHERE. NO DEFINITE ACUTE FI NDINGS. NO PRIOR STUDIES FOR COMPARISON. EVIDENCE OF ACUTE STROKE: NO. 12/31/19 04:50 01/01/20 05:09 MCV 83 fl (80-97) 12/31/19 04:50 MCH 28.5 pg (27.0-33.4) 12/31/19 04:50 MCHC 34.3 g/dL (32.0-36.0) 12/31/19 04:50 RDW 17.6 % (11.5-14.0) H 12/31/19 04:50 Seg Neutrophils % 54.2 % (42-78) 12/31/19 04:50 Chloride 106 mmol/L (98-107) 01/01/20 05:09 Carbon Dioxide 27 mmol/L (22-30) 01/01/20 05:09 Anion Gap 10 (5-19) 01/01/20 05:09 Est GFR ( Amer) > 60 (>60) 01/01/20 05:09 Glucose 109 mg/dL (75-110) 01/01/20 05:09 Calcium 9.3 mg/dL (8.4-10.2) 01/01/20 05:09 Magnesium 1.8 mg/dL (1.6-2.3) 12/28/19 16:40 Total Bilirubin 0.4 mg/dL (0.2-1.3) 12/28/19 16:40 AST 20 U/L (14-36) 12/28/19 16:40 Alkaline Phosphatase 81 U/L (38-126) 12/28/19 16:40 Total Protein 6.7 g/dL (6.3-8.2) 12/28/19 16:40 Albumin 3.4 g/dL (3.5-5.0) L 12/28/19 16:40 Urine Color YELLOW 12/29/19 13:50 Urine Appearance SLIGHTLY-CLOUDY 12/29/19 13:50 Urine pH 6.0 (5.0-9.0) 12/29/19 13:50 Ur Specific [place] 1.018 12/29/19 13:50 Urine Protein NEGATIVE mg/dL (NEGATIVE) 12/29/19 13:50 Urine Glucose (UA) NEGATIVE mg/dL (NEGATIVE) 12/29/19 13:50 Urine Ketones NEGATIVE mg/dL (NEGATIVE) 12/29/19 13:50 Urine Blood NEGATIVE (NEGATIVE) 12/29/19 13:50 Urine Nitrite NEGATIVE (NEGATIVE) 12/29/19 13:50 Ur Leukocyte Esterase NEGATIVE (NEGATIVE) 12/29/19 13:50 Urine WBC (Auto) 2 /HPF 12/29/19 13:50 Urine RBC (Auto) 13 /HPF 12/29/19 13:50 12/28/19 12/28/19 12/28/19 16:40 20:53 20:53 Creatine Kinase < 20 L CK-MB (CK-2) 0.29 Troponin I < 0.012 Cancelled 12/29/19 12/29/19 04:32 10:39 Creatine Kinase CK-MB (CK-2) 0.52 0.46 Troponin I < 0.012 < 0.012 Current Medication List Generic Name Dose Route Start Last Admin Trade Name Freq PRN Reason Stop Dose Admin Acetaminophen 650 mg 12/28/19 22:17 12/29/19 20:34 Tylenol 325 Mg Tablet PO 01/27/20 22:16 650 mg Q4HP PRN Administration FOR PAIN Aspirin 325 mg 12/29/19 10:00 12/31/19 10:35 Aspirin 325 Mg Tablet PO 01/28/20 09:59 325 mg DAILY NAEEM Administration Atorvastatin Calcium 10 mg 12/29/19 22:00 12/31/19 21:35 Lipitor 10 Mg Tablet PO 01/28/20 21:59 10 mg QHS NAEEM Administration Digoxin 0.125 mg 12/31/19 11:00 12/31/19 11:37 Lanoxin 0.125 Mg Tablet PO 01/30/20 10:59 0.125 mg DAILY NAEEM Administration Enoxaparin Sodium 40 mg 12/29/19 10:00 12/31/19 10:53 Lovenox Inj 40 Mg/0.4 Ml Disp.Syrin SUBCUT 01/28/20 09:59 Not Given DAILY NAEEM Ergocalciferol 50,000 unit 12/31/19 10:00 12/31/19 10:52 Drisdol 50,000 Unit (1.25mg) Capsule PO 01/30/20 09:59 50,000 unit GIRON@1000 NAEEM Administration Metoprolol Tartrate 25 mg 12/29/19 10:00 12/31/19 17:24 Lopressor 25 Mg Tablet PO 01/28/20 09:59 25 mg BID NAEEM Administration Montelukast Sodium 10 mg 12/29/19 22:00 12/31/19 21:35 Singulair 10 Mg Tablet PO 01/28/20 21:59 10 mg QHS NAEEM Administration Pantoprazole Sodium 40 mg 12/29/19 08:00 12/31/19 07:[address] Tablet PO 01/28/20 07:59 40 mg QAM NAEEM Administration Polyethylene Glycol 17 gm 12/29/19 10:00 12/31/19 10:36 Miralax Powder 17 Gm/Packet PO 01/28/20 09:59 17 gm DAILY NAEEM Administration Senna/Docusate Sodium 1 each 12/29/19 10:00 12/31/19 17:24 Senna Plus Tablet PO 01/28/20 09:59 1 each BID NAEEM Administration Sucralfate 1 gm 12/29/19 10:00 12/31/19 21:35 Carafate 1 Gm Tablet PO 01/28/20 09:59 1 gm QID NAEEM Administration Venlafaxine HCl 75 mg 12/29/19 10:00 12/31/19 10:36 Effexor Xr 75 Mg Cap.Sr PO 01/28/20 09:59 75 mg DAILY NAEEM Administration Discontinued Medications Generic Name Dose Route Start Last Admin Trade Name Colinq PRN Reason Stop Dose Admin Atorvastatin Calcium 10 mg 12/28/19 23:15 12/29/19 00:17 Lipitor 10 Mg Tablet PO 12/28/19 23:16 10 mg NOW ONE Administration Diltiazem HCl 10 mg 12/28/19 18:16 12/28/19 18:23 Cardizem Inj 25 Mg/5 Ml Vial IV 12/28/19 18:17 10 mg NOW ONE Administration Sodium Chloride 250 mls @ 0 mls/hr 12/28/19 18:15 12/28/19 19:41 Nacl 0.9% 1000 Ml Iv Soln IV 12/28/19 18:16 Infused BOLUS ONE Infusion Wide Open Diltiazem HCl 125 mg in 125 mls @ 0 mls/hr 12/28/19 18:16 12/28/19 20:46 Cardizem Rtu Inj 125 Mg-D5w 125 Ml Premix IV 01/27/20 18:15 15 mls/hr CONTINUOUS PRN 15 mls/hr THIS MED IS NOT "PRN" Titration Protocol Titrate Diltiazem HCl 125 mg in 125 mls @ 0 mls/hr 12/29/19 01:07 12/30/19 12:10 Cardizem Rtu Inj 125 Mg-D5w 125 Ml Premix IV 01/28/20 01:06 0 mls/hr CONTINUOUS PRN 0 mls/hr THIS MED IS NOT "PRN" Titration Protocol Titrate Metoprolol Tartrate 5 mg 12/28/19 22:10 12/28/19 22:22 Lopressor Inj/Pf 5 Mg/5 Ml Sdv IV 12/28/19 22:11 5 mg NOW ONE Administration Metoprolol Tartrate 25 mg 12/28/19 23:00 12/29/19 00:17 Lopressor 25 Mg Tablet PO 12/28/19 23:01 25 mg NOW ONE Administration Montelukast Sodium 10 mg 12/28/19 23:00 12/29/19 00:17 Singulair 10 Mg Tablet PO 12/28/19 23:01 10 mg NOW ONE Administration Patient Own Medication 40 mg 12/28/19 22:30 12/29/19 03:21 Pravastatin Sodium [Pravastatin Sodium] PO 01/27/20 22:29 Not Given QHS NAEEM Senna/Docusate Sodium 1 each 12/28/19 23:00 12/29/19 00:17 Senna Plus Tablet PO 12/28/19 23:01 1 each NOW ONE Administration Sucralfate 1 gm 12/28/19 23:00 12/29/19 00:18 Carafate 1 Gm Tablet PO 12/28/19 23:01 1 gm NOW ONE Administration Assessment & Plan - Diagnosis (1) Atrial fibrillation with RVR Is this a current diagnosis for this admission?: Yes Plan: Atrial fibrillation continue to be suboptimally controlled with frequent episodes of rapid ventricular response. Recommendations: -Change Lopressor to 50 mg twice daily. -Continue with digoxin for now. -Check magnesium along with BMP and replace electrolytes as needed. -Check digoxin level. -Hold anticoagulation until cleared by neurology, primary hospitalist to contact her neurologist to address this issue. -We will continue to follow with you.
[2020-01-01] MEDS: ATORVASTATIN CALCIUM 10 MG TABLET PO SCH (21:10)
[2020-01-01] MEDS: MONTELUKAST SODIUM 10 MG TABLET PO SCH (21:10)
--- NOTE | 2020-01-01 22:14 | PDOC PROGRESS REPORT ---
Subjective Progress Note for:: 01/01/20 Subjective:: Patient is seen by the bedside, she is still in A. fib with RVR, she was seen by cardiology Reason For Visit: A-FIB WITH RVR Physical Exam Vital Signs: Temp Pulse Resp BP Pulse Ox 98.4 F 105 H 18 148/93 H 98 01/01/20 20:28 01/01/20 20:28 01/01/20 20:28 01/01/20 20:28 01/01/20 20:28 Intake & Output 12/31/19 01/01/20 01/02/20 06:59 06:59 06:59 Intake Total 583 920 874 Balance 583 920 874 Weight 111.5 kg 111.5 kg General appearance: PRESENT: no acute distress Eye exam: PRESENT: PERRLA Respiratory exam: PRESENT: clear to auscultation mey Cardiovascular exam: PRESENT: +S1, +S2 GI/Abdominal exam: PRESENT: soft Neurological exam: PRESENT: alert Results Laboratory Results: 12/31/19 04:50 01/01/20 05:09 01/01/20 05:09 Sodium 143.1 Potassium 4.0 Chloride 106 Carbon Dioxide 27 Anion Gap 10 BUN 17 Creatinine 0.66 Est GFR ( Amer) > 60 Glucose 109 Calcium 9.3 12/28/19 12/28/19 12/28/19 16:40 20:53 20:53 Creatine Kinase < 20 L CK-MB (CK-2) 0.29 Troponin I < 0.012 Cancelled 12/29/19 12/29/19 04:32 10:39 Creatine Kinase CK-MB (CK-2) 0.52 0.46 Troponin I < 0.012 < 0.012 Impressions: Head CT 12/28/19 00:00 IMPRESSION: SURGICAL CHANGES. LARGE CRANIECTOMY DEFECT ON THE RIGHT SIDE WITH PRESUMED CHRONIC CHANGES IN THE RIGHT CEREBRAL HEMISPHERE. NO DEFINITE ACUTE FINDINGS. NO PRIOR STUDIES FOR COMPARISON. EVIDENCE OF ACUTE STROKE: NO. Assessment & Plan - Diagnosis (1) Persistent atrial fibrillation with rapid ventricular response Is this a current diagnosis for this admission?: Yes Plan: Adjust the dose of metoprolol to 50 mg p.o. twice daily, continue digoxin (2) Sick sinus syndrome Is this a current diagnosis for this admission?: Yes - Time Time Spent with patient: 25-34 minutes Level of Care: IMCU Medications reviewed and adjusted accordingly: Yes Anticipated discharge: Home
[2020-01-02 06:25] LABS: ANION GAP 9 (5-19); BLOOD UREA NITROGEN 14 mg/dL (7-20); CALCIUM 9.4 mg/dL (8.4-10.2); CARBON DIOXIDE 28 mmol/L (22-30); CHLORIDE 105 mmol/L (98-107); GLUCOSE 112 mg/dL (75-110); POTASSIUM 4.2 mmol/L (3.6-5.0)
[2020-01-02] MEDS: VENLAFAXINE HCL 75 MG CAP.SR.24H PO SCH (09:55)
[2020-01-02] MEDS: PANTOPRAZOLE SODIUM 40 MG TABLET.DR PO SCH (09:55)
[2020-01-02] MEDS: METOPROLOL TARTRATE 25 MG TABLET PO SCH ×2 (09:55→17:11)
[2020-01-02] MEDS: SUCRALFATE 1 GM TABLET PO SCH ×4 (09:55→21:14)
[2020-01-02] MEDS: SENNOSIDES/DOCUSATE 8.6-50 MG 1 EACH TABLET PO SCH ×2 (09:55→17:12)
[2020-01-02] MEDS: ASPIRIN 325 MG TABLET PO SCH (09:55)
[2020-01-02] MEDS: DIGOXIN 0.125 MG TABLET PO SCH (09:56)
[2020-01-02] MEDS: POLYETHYLENE GLYCOL 3350 POWDER 17 GM/1 PACKET PO SCH (09:56)
[2020-01-02] MEDS: ENOXAPARIN SODIUM INJ 40 MG/0.4 ML DISP.SYRIN SUBCUT SCH (09:56)
--- NOTE | 2020-01-02 12:57 | PDOC PROGRESS REPORT ---
Subjective Progress Note for:: 01/02/20 Subjective:: 64-year-old female well-known to me from a prior admission who was readmitted on 12/29/2019 for rapid atrial fibrillation in the setting of a severe headache. The patient was previously admitted on 12/20/2019 for rapid A. fib. Her heart rate was significantly improved on Lopressor 50 mg every 6 hours however she had significant pauses as well as episodes of rapid ventricular response worrisome for sick sinus syndrome therefore we recommend that his Lopressor to be decreased to 25 mg p.o. every 6 hours. Unfortunately the patient was discharged on Lopressor 25 mg twice daily and developed rapid A. fib. She was consulted to my partner, Dr. Green on 12/30/2019 who recommended the addition of digoxin. The patient feels well this morning and denies chest pain, palpitations, syncope or presyncope however complains of mild shortness of breath. His telemetry continues to show atrial fibrillation with RVR with heart rates up to 150 to 160 bpm. 01/02/2020: The patient had an uneventful night and her heart rate is responding nicely to increased doses of Lopressor. Her telemetry shows rapid atrial fibrillation with improved heart rates and she has only received 2 doses of Lopressor. There has been now ventricular dysrhythmias and she denies cardiovascular complaints. Physical exam on 01/02/2020: GENERAL: Oriented x3 with normal mood. Not in acute distress. Well groomed and well developed. HEENT: Normocephalic, atraumatic. Pupils equal. Sclerae anicteric. Oropharynx moist. NECK: No JVD. No carotid bruits. LUNGS: Clear to auscultation bilaterally. Normal respiratory effort without the use of accessory muscles or intercostal retractions. CARDIOVASCULAR: Irregularly irregular rate and rhythm without murmurs, rubs, or gallops. PMI not displaced. EXTREMITIES: No pitting edema bilaterally, no cyanosis, no clubbing. +2 pulses femoral and pedal pulses bilaterally. SKIN: No lesions or rashes. MUSCULOSKELETAL: No chest tenderness to palpation. Cardiac studies: Echocardiogram on 12/21/2019: -EF 60 to 65%. -No wall motion abnormalities. -Possible inlet VSD. -Mild MR, mild AI, mild TR, mild PI. Reason For Visit: A-FIB WITH RVR Physical Exam Vital Signs: Temp Pulse Resp BP Pulse Ox 98.6 F 103 H 18 133/86 H 93 01/02/20 07:46 01/02/20 07:46 01/02/20 07:46 01/02/20 07:46 01/02/20 07:46 Intake & Output 01/01/20 01/02/20 01/03/20 06:59 06:59 06:59 Intake Total 920 874 Balance 920 874 Weight 111.5 kg 115.3 kg Results Laboratory Results: 12/31/19 04:50 01/02/20 05:30 01/02/20 05:30 Sodium 141.8 Potassium 4.2 Chloride 105 Carbon Dioxide 28 Anion Gap 9 BUN 14 Creatinine 0.55 Est GFR ( Amer) > 60 Glucose 112 H Calcium 9.4 12/28/19 12/28/19 12/28/19 16:40 20:53 20:53 Creatine Kinase < 20 L CK-MB (CK-2) 0.29 Troponin I < 0.012 Cancelled 12/29/19 12/29/19 04:32 10:39 Creatine Kinase CK-MB (CK-2) 0.52 0.46 Troponin I < 0.012 < 0.012 Impressions: Head CT 12/28/19 00:00 IMPRESSION: SURGICAL CHANGES. LARGE CRANIECTOMY DEFECT ON THE RIGHT SIDE WITH PRESUMED CHRONIC CHANGES IN THE RIGHT CEREBRAL HEMISPHERE. NO DEFINITE ACUTE FINDINGS. NO PRIOR STUDIES FOR COMPARISON. EVIDENCE OF ACUTE STROKE: NO. 12/31/19 04:50 01/02/20 05:30 MCV 83 fl (80-97) 12/31/19 04:50 MCH 28.5 pg (27.0-33.4) 12/31/19 04:50 MCHC 34.3 g/dL (32.0-36.0) 12/31/19 04:50 RDW 17.6 % (11.5-14.0) H 12/31/19 04:50 Seg Neutrophils % 54.2 % (42-78) 12/31/19 04:50 Chloride 105 mmol/L (98-107) 01/02/20 05:30 Carbon Dioxide 28 mmol/L (22-30) 01/02/20 05:30 Anion Gap 9 (5-19) 01/02/20 05:30 Est GFR ( Amer) > 60 (>60) 01/02/20 05:30 Glucose 112 mg/dL (75-110) H 01/02/20 05:30 Calcium 9.4 mg/dL (8.4-10.2) 01/02/20 05:30 Magnesium 1.8 mg/dL (1.6-2.3) 12/28/19 16:40 Total Bilirubin 0.4 mg/dL (0.2-1.3) 12/28/19 16:40 AST 20 U/L (14-36) 12/28/19 16:40 Alkaline Phosphatase 81 U/L (38-126) 12/28/19 16:40 Total Protein 6.7 g/dL (6.3-8.2) 12/28/19 16:40 Albumin 3.4 g/dL (3.5-5.0) L 12/28/19 16:40 Urine Color YELLOW 12/29/19 13:50 Urine Appearance SLIGHTLY-CLOUDY 12/29/19 13:50 Urine pH 6.0 (5.0-9.0) 12/29/19 13:50 Ur Specific [place] 1.018 12/29/19 13:50 Urine Protein NEGATIVE mg/dL (NEGATIVE) 12/29/19 13:50 Urine Glucose (UA) NEGATIVE mg/dL (NEGATIVE) 12/29/19 13:50 Urine Ketones NEGATIVE mg/dL (NEGATIVE) 12/29/19 13:50 Urine Blood NEGATIVE (NEGATIVE) 12/29/19 13:50 Urine Nitrite NEGATIVE (NEGATIVE) 12/29/19 13:50 Ur Leukocyte Esterase NEGATIVE (NEGATIVE) 12/29/19 13:50 Urine WBC (Auto) 2 /HPF 12/29/19 13:50 Urine RBC (Auto) 13 /HPF 12/29/19 13:50 12/28/19 12/28/19 12/28/19 16:40 20:53 20:53 Creatine Kinase < 20 L CK-MB (CK-2) 0.29 Troponin I < 0.012 Cancelled 12/29/19 12/29/19 04:32 10:39 Creatine Kinase CK-MB (CK-2) 0.52 0.46 Troponin I < 0.012 < 0.012 Current Medication List Generic Name Dose Route Start Last Admin Trade Name Freq PRN Reason Stop Dose Admin Acetaminophen 650 mg 12/28/19 22:17 12/29/19 20:34 Tylenol 325 Mg Tablet PO 01/27/20 22:16 650 mg Q4HP PRN Administration FOR PAIN Aspirin 325 mg 12/29/19 10:00 01/02/20 09:55 Aspirin 325 Mg Tablet PO 01/28/20 09:59 325 mg DAILY NAEEM Administration Atorvastatin Calcium 10 mg 12/29/19 22:00 01/01/20 21:10 Lipitor 10 Mg Tablet PO 01/28/20 21:59 10 mg QHS NAEEM Administration Digoxin 0.125 mg 12/31/19 11:00 01/02/20 09:56 Lanoxin 0.125 Mg Tablet PO 01/30/20 10:59 0.125 mg DAILY NAEEM Administration Enoxaparin Sodium 40 mg 12/29/19 10:00 01/02/20 09:56 Lovenox Inj 40 Mg/0.4 Ml Disp.Syrin SUBCUT 01/28/20 09:59 40 mg DAILY NAEEM Administration Ergocalciferol 50,000 unit 12/31/19 10:00 12/31/19 10:52 Drisdol 50,000 Unit (1.25mg) Capsule PO 01/30/20 09:59 50,000 unit GIRON@1000 NAEEM Administration Metoprolol Tartrate 50 mg 01/01/20 22:15 01/02/20 09:55 Lopressor 25 Mg Tablet PO 01/31/20 22:14 50 mg BID NAEEM Administration Montelukast Sodium 10 mg 12/29/19 22:00 01/01/20 21:10 Singulair 10 Mg Tablet PO 01/28/20 21:59 10 mg QHS NAEEM Administration Pantoprazole Sodium 40 mg 12/29/19 08:00 01/02/20 09:[address] Tablet PO 01/28/20 07:59 40 mg QAM NAEEM Administration Polyethylene Glycol 17 gm 12/29/19 10:00 01/02/20 09:56 Miralax Powder 17 Gm/Packet PO 01/28/20 09:59 17 gm DAILY NAEEM Administration Senna/Docusate Sodium 1 each 12/29/19 10:00 01/02/20 09:55 Senna Plus Tablet PO 01/28/20 09:59 1 each BID NAEEM Administration Sucralfate 1 gm 12/29/19 10:00 01/02/20 09:55 Carafate 1 Gm Tablet PO 01/28/20 09:59 1 gm QID NAEEM Administration Venlafaxine HCl 75 mg 12/29/19 10:00 01/02/20 09:55 Effexor Xr 75 Mg Cap.Sr PO 01/28/20 09:59 75 mg DAILY NAEEM Administration Discontinued Medications Generic Name Dose Route Start Last Admin Trade Name Freq PRN Reason Stop Dose Admin Atorvastatin Calcium 10 mg 12/28/19 23:15 12/29/19 00:17 Lipitor 10 Mg Tablet PO 12/28/19 23:16 10 mg NOW ONE Administration Diltiazem HCl 10 mg 12/28/19 18:16 12/28/19 18:23 Cardizem Inj 25 Mg/5 Ml Vial IV 12/28/19 18:17 10 mg NOW ONE Administration Sodium Chloride 250 mls @ 0 mls/hr 12/28/19 18:15 12/28/19 19:41 Nacl 0.9% 1000 Ml Iv Soln IV 12/28/19 18:16 Infused BOLUS ONE Infusion Wide Open Diltiazem HCl 125 mg in 125 mls @ 0 mls/hr 12/28/19 18:16 12/28/19 20:46 Cardizem Rtu Inj 125 Mg-D5w 125 Ml Premix IV 01/27/20 18:15 15 mls/hr CONTINUOUS PRN 15 mls/hr THIS MED IS NOT "PRN" Titration Protocol Titrate Diltiazem HCl 125 mg in 125 mls @ 0 mls/hr 12/29/19 01:07 12/30/19 12:10 Cardizem Rtu Inj 125 Mg-D5w 125 Ml Premix IV 01/28/20 01:06 0 mls/hr CONTINUOUS PRN 0 mls/hr THIS MED IS NOT "PRN" Titration Protocol Titrate Metoprolol Tartrate 5 mg 12/28/19 22:10 12/28/19 22:22 Lopressor Inj/Pf 5 Mg/5 Ml Sdv IV 12/28/19 22:11 5 mg NOW ONE Administration Metoprolol Tartrate 25 mg 12/29/19 10:00 01/01/20 17:07 Lopressor 25 Mg Tablet PO 01/28/20 09:59 25 mg BID NAEEM Administration Metoprolol Tartrate 25 mg 12/28/19 23:00 10/16/20 00:17 Lopressor 25 Mg Tablet PO 12/28/19 23:01 25 mg NOW ONE Administration Montelukast Sodium 10 mg 12/28/19 23:00 12/29/19 00:17 Singulair 10 Mg Tablet PO 12/28/19 23:01 10 mg NOW ONE Administration Patient Own Medication 40 mg 12/28/19 22:30 12/29/19 03:21 Pravastatin Sodium [Pravastatin Sodium] PO 01/27/20 22:29 Not Given QHS [facility] Senna/Docusate Sodium 1 each 12/28/19 23:00 12/29/19 00:17 Senna Plus Tablet PO 12/28/19 23:01 1 each NOW ONE Administration Sucralfate 1 gm 12/28/19 23:00 12/29/19 00:18 Carafate 1 Gm Tablet PO 12/28/19 23:01 1 gm NOW ONE Administration Assessment & Plan - Diagnosis (1) Atrial fibrillation with RVR Is this a current diagnosis for this admission?: Yes Plan: Her heart rate is better controlled although she continues to experience episodes of very high heart rates although it is overall improved. There is no evidence of ventricular dysrhythmias or significant bradycardia/AV block on tele metry. Recommendations: -Continue with Lopressor to 50 mg twice daily for now. -Continue with digoxin for now. -Check magnesium along with BMP and replace electrolytes as needed. -Check digoxin level. -Hold anticoagulation until cleared by neurology, primary hospitalist to contact her neurologist to address this issue. -We will continue to follow with you.
[2020-01-02] MEDS: ACETAMINOPHEN 325 MG TABLET PO PRN ×2 (13:13→21:14)
--- NOTE | 2020-01-02 20:12 | PDOC PROGRESS REPORT ---
Subjective Progress Note for:: 01/02/20 Subjective:: The ventricular rate is not well controlled, she was seen by the electromechanical technologist Dr. Calderon Reason For Visit: A-FIB WITH RVR Physical Exam Vital Signs: Temp Pulse Resp BP Pulse Ox 97.7 F 92 19 118/66 98 01/02/20 16:10 01/02/20 19:00 01/02/20 16:10 01/02/20 16:10 01/02/20 16:10 Intake & Output 01/01/20 01/02/20 01/03/20 06:59 06:59 06:59 Intake Total 920 874 472 Balance 920 874 472 Weight 111.5 kg 115.3 kg General appearance: PRESENT: no acute distress Eye exam: PRESENT: PERRLA Respiratory exam: PRESENT: clear to auscultation mey Cardiovascular exam: PRESENT: +S1, +S2 GI/Abdominal exam: PRESENT: soft Neurological exam: PRESENT: alert Results Laboratory Results: 12/31/19 04:50 01/02/20 05:30 01/02/20 05:30 Sodium 141.8 Potassium 4.2 Chloride 105 Carbon Dioxide 28 Anion Gap 9 BUN 14 Creatinine 0.55 Est GFR ( Amer) > 60 Glucose 112 H Calcium 9.4 12/28/19 12/28/19 12/28/19 16:40 20:53 20:53 Creatine Kinase < 20 L CK-MB (CK-2) 0.29 Troponin I < 0.012 Cancelled 12/29/19 12/29/19 04:32 10:39 Creatine Kinase CK-MB (CK-2) 0.52 0.46 Troponin I < 0.012 < 0.012 Impressions: Head CT 12/28/19 00:00 IMPRESSION: SURGICAL CHANGES. LARGE CRANIECTOMY DEFECT ON THE RIGHT SIDE WITH PRESUMED CHRONIC CHANGES IN THE RIGHT CEREBRAL HEMISPHERE. NO DEFINITE ACUTE FINDINGS. NO PRIOR STUDIES FOR COMPARISON. EVIDENCE OF ACUTE STROKE: NO. Assessment & Plan - Diagnosis (1) Persistent atrial fibrillation with rapid ventricular response Is this a current diagnosis for this admission?: Yes Plan: Continue present regimen (2) Sick sinus syndrome Is this a current diagnosis for this admission?: Yes - Time Time Spent with patient: 25-34 minutes Level of Care: IMCU Anticipated discharge: Home Anticipated DC Timeframe: within 72 hours
[2020-01-02] MEDS: ATORVASTATIN CALCIUM 10 MG TABLET PO SCH (21:14)
[2020-01-02] MEDS: MONTELUKAST SODIUM 10 MG TABLET PO SCH (21:15)
[2020-01-03] MEDS: ACETAMINOPHEN 325 MG TABLET PO PRN (03:51)
[2020-01-03] MEDS: ENOXAPARIN SODIUM INJ 40 MG/0.4 ML DISP.SYRIN SUBCUT SCH (09:34)
[2020-01-03] MEDS: DIGOXIN 0.125 MG TABLET PO SCH (09:35)
[2020-01-03] MEDS: SENNOSIDES/DOCUSATE 8.6-50 MG 1 EACH TABLET PO SCH ×2 (09:35→17:44)
[2020-01-03] MEDS: ASPIRIN 325 MG TABLET PO SCH (09:35)
[2020-01-03] MEDS: VENLAFAXINE HCL 75 MG CAP.SR.24H PO SCH (09:35)
[2020-01-03] MEDS: PANTOPRAZOLE SODIUM 40 MG TABLET.DR PO SCH (09:35)
[2020-01-03] MEDS: SUCRALFATE 1 GM TABLET PO SCH ×4 (09:36→21:23)
[2020-01-03] MEDS: POLYETHYLENE GLYCOL 3350 POWDER 17 GM/1 PACKET PO SCH (09:36)
[2020-01-03] MEDS: METOPROLOL TARTRATE 25 MG TABLET PO SCH (09:36)
--- NOTE | 2020-01-03 10:25 | PDOC PROGRESS REPORT ---
Subjective Progress Note for:: 01/03/20 Subjective:: 64-year-old female well-known to me from a prior admission who was readmitted on 12/29/2019 for rapid atrial fibrillation in the setting of a severe headache. The patient was previously admitted on 12/20/2019 for rapid A. fib. Her heart rate was significantly improved on Lopressor 50 mg every 6 hours however she had significant pauses as well as episodes of rapid ventricular response worrisome for sick sinus syndrome therefore we recommend that his Lopressor to be decreased to 25 mg p.o. every 6 hours. Unfortunately the patient was discharged on Lopressor 25 mg twice daily and developed rapid A. fib. She was consulted to my partner, Dr. Green on 12/30/2019 who recommended the addition of digoxin. The patient feels well this morning and denies chest pain, palpitations, syncope or presyncope however complains of mild shortness of breath. His telemetry continues to show atrial fibrillation with RVR with heart rates up to 150 to 160 bpm. 01/03/2020: The patient had an uneventful night however she continues to have rapid atrial fibrillation and occasional episodes of heart rate in the mid 40s but asymptomatic. She gets particularly tachycardic with just moving in the bed. Her telemetry shows rapid atrial fibrillation with episodes of bradycardia in the mid 40s. There has been no ventricular dysrhythmias and she denies cardiovascular complaints. Physical exam on 01/03/2020: GENERAL: Oriented x3 with normal mood. Not in acute distress. Well groomed and well developed. HEENT: Normocephalic, atraumatic. Pupils equal. Sclerae anicteric. Oropharynx moist. NECK: No JVD. No carotid bruits. LUNGS: Clear to auscultation bilaterally. Normal respiratory effort without the use of accessory muscles or intercostal retractions. CARDIOVASCULAR: Tachycardic. Irregularly irregular rate and rhythm without murmurs, rubs, or gallops. PMI not displaced. EXTREMITIES: No pitting edema bilaterally, no cyanosis, no clubbing. +2 pulses femoral and pedal pulses bilaterally. SKIN: No lesions or rashes. MUSCULOSKELETAL: No chest tenderness to palpation. Cardiac studies: Echocardiogram on 12/21/2019: -EF 60 to 65%. -No wall motion abnormalities. -Possible inlet VSD. -Mild MR, mild AI, mild TR, mild PI. Reason For Visit: A-FIB WITH RVR Physical Exam Vital Signs: Temp Pulse Resp BP Pulse Ox 98.4 F 89 16 132/81 H 99 01/03/20 03:47 01/03/20 03:47 01/03/20 03:47 01/03/20 03:47 01/03/20 03:47 Intake & Output 01/02/20 01/03/20 01/04/20 06:59 06:59 06:59 Intake Total 874 472 Balance 874 472 Weight 115.3 kg 114.8 kg Results Laboratory Results: 12/31/19 04:50 01/02/20 05:30 12/28/19 12/28/19 12/28/19 16:40 20:53 20:53 Creatine Kinase < 20 L CK-MB (CK-2) 0.29 Troponin I < 0.012 Cancelled 12/29/19 12/29/19 04:32 10:39 Creatine Kinase CK-MB (CK-2) 0.52 0.46 Troponin I < 0.012 < 0.012 Impressions: Head CT 12/28/19 00:00 IMPRESSION: SURGICAL CHANGES. LARGE CRANIECTOMY DEFECT ON THE RIGHT SIDE WITH PRESUMED CHRONIC CHANGES IN THE RIGHT CEREBRAL HEMISPHERE. NO DEFINITE ACUTE FINDINGS. NO PRIOR STUDIES FOR COMPARISON. EVIDENCE OF ACUTE STROKE: NO. Assessment & Plan - Diagnosis (1) Atrial fibrillation with RVR Is this a current diagnosis for this admission?: Yes Plan: Unfortunately she continues to have episodes of rapid atrial fibrillation with minimal activities such as eating breakfast in bed. Recommendations: -Increase Lopressor to 75 mg twice daily. -Continue with digoxin for now. -Check magnesium along with BMP and replace electrolytes as needed. -Check digoxin level. -Hold anticoagulation until cleared by neurology, primary hospitalist to contact her neurologist to address this issue. -We will continue to follow with you.
[2020-01-03 12:02] LABS: ANION GAP 8 (5-19); BLOOD UREA NITROGEN 11 mg/dL (7-20); CALCIUM 9.5 mg/dL (8.4-10.2); CARBON DIOXIDE 31 mmol/L (22-30); CHLORIDE 103 mmol/L (98-107); GLUCOSE 113 mg/dL (75-110)
--- NOTE | 2020-01-03 16:58 | PDOC PROGRESS REPORT ---
Subjective Progress Note for:: 01/03/20 Subjective:: Patient seen by the bedside, she was admitted for the management of atrial fibrillation with rapid ventricular response, the heart rate is not controlled yet on present regimen, she was seen earlier by the quarry equipment operator, the metoprolol dose increased was suggested from the review of the quarry equipment operator notes ,from 50mg to 75 mg p.o. twice daily this was ordered in [facility] to have the dose adjusted to 75 twice daily in addition to digoxin Reason For Visit: A-FIB WITH RVR Physical Exam Vital Signs: Temp Pulse Resp BP Pulse Ox 98.0 F 96 16 103/78 96 01/03/20 12:09 01/03/20 14:00 01/03/20 12:09 01/03/20 12:09 01/03/20 12:09 Intake & Output 01/02/20 01/03/20 01/04/20 06:59 06:59 06:59 Intake Total 874 472 574 Balance 874 472 574 Weight 115.3 kg 114.8 kg General appearance: PRESENT: no acute distress Eye exam: PRESENT: PERRLA Respiratory exam: PRESENT: clear to auscultation mey Cardiovascular exam: PRESENT: +S1, +S2 Results Laboratory Results: 12/31/19 04:50 01/03/20 10:56 01/03/20 01/03/20 06:28 10:56 Sodium 142.3 Potassium 4.0 Chloride 103 Carbon Dioxide 31 H Anion Gap 8 BUN 11 Creatinine 0.64 Est GFR ( Amer) > 60 Glucose 113 H Calcium 9.5 Magnesium 2.0 1.9 12/28/19 12/28/19 12/28/19 16:40 20:53 20:53 Creatine Kinase < 20 L CK-MB (CK-2) 0.29 Troponin I < 0.012 Cancelled 12/29/19 12/29/19 04:32 10:39 Creatine Kinase CK-MB (CK-2) 0.52 0.46 Troponin I < 0.012 < 0.012 Impressions: Head CT 12/28/19 00:00 IMPRESSION: SURGICAL CHANGES. LARGE CRANIECTOMY DEFECT ON THE RIGHT SIDE WITH PRESUMED CHRONIC CHANGES IN THE RIGHT CEREBRAL HEMISPHERE. NO DEFINITE ACUTE FINDINGS. NO PRIOR STUDIES FOR COMPARISON. EVIDENCE OF ACUTE STROKE: NO. Assessment & Plan - Diagnosis (1) Persistent atrial fibrillation with rapid ventricular response Is this a current diagnosis for this admission?: Yes Plan: Adjust metoprolol to 75 mg p.o. twice daily - Time Time Spent with patient: 25-34 minutes Level of Care: IMCU Medications reviewed and adjusted accordingly: Yes Anticipated discharge: Home Anticipated DC Timeframe: within 72 hours
[2020-01-03] MEDS: ATORVASTATIN CALCIUM 10 MG TABLET PO SCH (21:23)
[2020-01-03] MEDS: MONTELUKAST SODIUM 10 MG TABLET PO SCH (21:23)
[2020-01-03] MEDS: METOPROLOL TARTRATE 50 MG TABLET PO SCH (21:23)
[2020-01-03] MEDS ORDERED: METOPROLOL TARTRATE 50 MG TABLET PO SCH (22:00)
[2020-01-04] MEDS: PANTOPRAZOLE SODIUM 40 MG TABLET.DR PO SCH (08:31)
--- NOTE | 2020-01-04 09:22 | RADIOLOGY REPORT (SQ) ---
EXAM DESCRIPTION: CHEST 2 VIEWS IMAGES COMPLETED DATE/TIME: 01/04/2020 9:10 am REASON FOR STUDY: Rule out Heart Failure COMPARISON: 12/20/2019. EXAM PARAMETERS: NUMBER OF VIEWS: two views TECHNIQUE: Digital Frontal and Lateral radiographic views of the chest acquired. RADIATION DOSE: NA LIMITATIONS: none FINDINGS: LUNGS AND PLEURA: No opacities, masses or pneumothorax. No pleural effusion. MEDIASTINUM AND HILAR STRUCTURES: No masses or contour abnormalities. HEART AND VASCULAR STRUCTURES: Heart normal size. No evidence for failure. BONES: No acute findings. HARDWARE: None in the chest. OTHER: No other significant finding. IMPRESSION: NO ACUTE RADIOGRAPHIC FINDING IN THE CHEST. TECHNICAL DOCUMENTATION: JOB ID: [id number] 2010 [employer]- All Rights Reserved Reading location - IP/workstation name: [email or web address]
[2020-01-04] MEDS: ENOXAPARIN SODIUM INJ 40 MG/0.4 ML DISP.SYRIN SUBCUT SCH (10:09)
--- NOTE | 2020-01-04 10:13 | PDOC PROGRESS REPORT ---
Subjective Progress Note for:: 01/04/20 Subjective:: 64-year-old female well-known to me from a prior admission who was readmitted on 12/29/2019 for rapid atrial fibrillation in the setting of a severe headache. The patient was previously admitted on 12/20/2019 for rapid A. fib. Her heart rate was significantly improved on Lopressor 50 mg every 6 hours however she had significant pauses as well as episodes of rapid ventricular response worrisome for sick sinus syndrome therefore we recommend that his Lopressor to be decreased to 25 mg p.o. every 6 hours. Unfortunately the patient was discharged on Lopressor 25 mg twice daily and developed rapid A. fib. She was consulted to my partner, Dr. Green on 12/30/2019 who recommended the addition of digoxin. The patient feels well this morning and denies chest pain, palpitations, syncope or presyncope however complains of mild shortness of breath. His telemetry continues to show atrial fibrillation with RVR with heart rates up to 150 to 160 bpm. 01/04/2020: The patient had an uneventful night with an improved heart rate and no bradycardia noted. She has no symptoms and actually feels better. However she continues to have rapid atrial fibrillation and occasional episodes of heart rate in the mid 40s but asymptomatic. Her telemetry is free of ventricular dysrhythmias. Her chest x-ray does not show evidence of heart failure. Physical exam on 01/04/2020: GENERAL: Oriented x3 with normal mood. Not in acute distress. Well groomed and well developed. HEENT: Normocephalic, atraumatic. Pupils equal. Sclerae anicteric. Oropharynx moist. NECK: No JVD. No carotid bruits. LUNGS: Clear to auscultation bilaterally. Normal respiratory effort without the use of accessory muscles or intercostal retractions. CARDIOVASCULAR: Irregularly irregular rate and rhythm without murmurs, rubs, or gallops. PMI not displaced. EXTREMITIES: No pitting edema bilaterally, no cyanosis, no clubbing. +2 pulses femoral and pedal pulses bilaterally. SKIN: No lesions or rashes. MUSCULOSKELETAL: No chest tenderness to palpation. Cardiac studies: Echocardiogram on 12/21/2019: -EF 60 to 65%. -No wall motion abnormalities. -Possible inlet VSD. -Mild MR, mild AI, mild TR, mild PI. Reason For Visit: A-FIB WITH RVR Physical Exam Vital Signs: Temp Pulse Resp BP Pulse Ox 98.4 F 102 H 18 129/84 H 96 01/03/20 23:47 01/04/20 02:00 01/03/20 23:47 01/03/20 23:47 01/03/20 23:47 Intake & Output 01/02/20 01/03/20 01/04/20 06:59 06:59 06:59 Intake Total 874 472 692 Balance 874 472 692 Weight 115.3 kg 114.8 kg 112.4 kg Results Laboratory Results: 12/31/19 04:50 01/03/20 10:56 01/03/20 01/03/20 06:28 10:56 Sodium 142.3 Potassium 4.0 Chloride 103 Carbon Dioxide 31 H Anion Gap 8 BUN 11 Creatinine 0.64 Est GFR ( Amer) > 60 Glucose 113 H Calcium 9.5 Magnesium 2.0 1.9 12/28/19 12/28/19 12/28/19 16:40 20:53 20:53 Creatine Kinase < 20 L CK-MB (CK-2) 0.29 Troponin I < 0.012 Cancelled 12/29/19 12/29/19 04:32 10:39 Creatine Kinase CK-MB (CK-2) 0.52 0.46 Troponin I < 0.012 < 0.012 Impressions: Head CT 12/28/19 00:00 IMPRESSION: SURGICAL CHANGES. LARGE CRANIECTOMY DEFECT ON THE RIGHT SIDE WITH PRESUMED CHRONIC CHANGES IN THE RIGHT CEREBRAL HEMISPHERE. NO DEFINITE ACUTE FINDINGS. NO PRIOR STUDIES FOR COMPARISON. EVIDENCE OF ACUTE STROKE: NO. Assessment & Plan - Diagnosis (1) Atrial fibrillation with RVR Is this a current diagnosis for this admission?: Yes Plan: Her heart rate is improved however she has only received 1 dose of 75 mg of Lopressor last night, she has not received her morning dose yet. Her digoxin level is not toxic. Recommendations: -Continue with current medical management for now. -Anticipate discharge tomorrow. -Hold anticoagulation until cleared by neurology, primary hospitalist to contact her neurologist to address this issue. -We will continue to follow with you.
[2020-01-04] MEDS: METOPROLOL TARTRATE 50 MG TABLET PO SCH ×2 (10:14→21:19)
[2020-01-04] MEDS: DIGOXIN 0.125 MG TABLET PO SCH (10:16)
[2020-01-04] MEDS: POLYETHYLENE GLYCOL 3350 POWDER 17 GM/1 PACKET PO SCH (10:17)
[2020-01-04] MEDS: ASPIRIN 325 MG TABLET PO SCH (10:17)
[2020-01-04] MEDS: SENNOSIDES/DOCUSATE 8.6-50 MG 1 EACH TABLET PO SCH ×2 (10:17→17:07)
[2020-01-04] MEDS: VENLAFAXINE HCL 75 MG CAP.SR.24H PO SCH (10:17)
[2020-01-04] MEDS: SUCRALFATE 1 GM TABLET PO SCH ×4 (10:18→21:19)
--- NOTE | 2020-01-04 18:49 | PDOC PROGRESS REPORT ---
Subjective Progress Note for:: 01/04/20 Subjective:: Patient is seen by the bedside, alert active better control, reviewed Dr. Calderon note hopefully discharge home tomorrow Reason For Visit: A-FIB WITH RVR Physical Exam Vital Signs: Temp Pulse Resp BP Pulse Ox 98.2 F 85 18 137/99 H 94 01/04/20 16:04 01/04/20 16:04 01/04/20 16:04 01/04/20 16:04 01/04/20 16:04 Intake & Output 01/03/20 01/04/20 01/05/20 06:59 06:59 06:59 Intake Total 472 692 Balance 472 692 Weight 114.8 kg 112.4 kg 112.4 kg General appearance: PRESENT: no acute distress Eye exam: PRESENT: PERRLA Respiratory exam: PRESENT: clear to auscultation mey Cardiovascular exam: PRESENT: +S1, +S2 GI/Abdominal exam: PRESENT: soft Neurological exam: PRESENT: alert, CN II-XII grossly intact Results Laboratory Results: 12/31/19 04:50 01/03/20 10:56 12/28/19 12/28/19 12/28/19 16:40 20:53 20:53 Creatine Kinase < 20 L CK-MB (CK-2) 0.29 Troponin I < 0.012 Cancelled 12/29/19 12/29/19 04:32 10:39 Creatine Kinase CK-MB (CK-2) 0.52 0.46 Troponin I < 0.012 < 0.012 Impressions: Head CT 12/28/19 00:00 IMPRESSION: SURGICAL CHANGES. LARGE CRANIECTOMY DEFECT ON THE RIGHT SIDE WITH PRESUMED CHRONIC CHANGES IN THE RIGHT CEREBRAL HEMISPHERE. NO DEFINITE ACUTE FINDINGS. NO PRIOR STUDIES FOR COMPARISON. EVIDENCE OF ACUTE STROKE: NO. Chest X-Ray 01/04/20 00:00 IMPRESSION: NO ACUTE RADIOGRAPHIC FINDING IN THE CHEST. Assessment & Plan - Diagnosis (1) Persistent atrial fibrillation with rapid ventricular response Is this a current diagnosis for this admission?: Yes Plan: Adjust metoprolol to 75 mg p.o. twice daily - Time Time Spent with patient: 15-24 minutes Level of Care: IMCU Medications reviewed and adjusted accordingly: Yes Anticipated discharge: Home - Inpatient Certification Based on my medical assessment, after consideration of the patient's comorbidities, presenting symptoms, or acuity I expect that the services needed warrant INPATIENT care.: Yes I certify that my determination is in accordance with my understanding of Medicare's requirements for reasonable and necessary INPATIENT services [42 CFR 412.3e].: Yes
[2020-01-04] MEDS: MONTELUKAST SODIUM 10 MG TABLET PO SCH (21:18)
[2020-01-04] MEDS: ATORVASTATIN CALCIUM 10 MG TABLET PO SCH (21:19)
[2020-01-05 08:57] LABS: ABSOLUTE EOSINOPHILS # (AUTO) 0.5 10^3/uL (0.0-0.6); ABSOLUTE LYMPHOCYTES (AUTO) 2.6 10^3/uL (0.5-4.7); ABSOLUTE MONOCYTES (AUTO) 0.5 10^3/uL (0.1-1.4); ABSOLUTE NEUT (AUTO) 3.4 10^3/uL (1.7-8.2); BASOPHILS % (AUTO) 0.7 % (0-2); EOSINOPHILS % (AUTO) 6.6 % (0-6); HEMATOCRIT 37.3 % (36.0-47.0); HEMOGLOBIN 12.6 g/dL (12.0-15.5); LYMPHOCYTES % (AUTO) 36.9 % (13-45); MEAN CORPUSCULAR HEMOGLOBIN 28.1 pg (27.0-33.4); MEAN CORPUSCULAR HGB CONC 33.7 g/dL (32.0-36.0); MEAN CORPUSCULAR VOLUME 84 fl (80-97); MONOCYTES % (AUTO) 7.2 % (3-13); PLATELET COUNT 222 10^3/uL (150-450); RED BLOOD COUNT 4.46 10^6/uL (3.72-5.28); RED CELL DISTRIBUTION WIDTH 17.3 % (11.5-14.0); SEGMENTED NEUTROPHILS % (AUTO) 48.6 % (42-78); TOTAL CELLS COUNTED % (AUTO) 100 %; WHITE BLOOD COUNT 7.1 10^3/uL (4.0-10.5)
[2020-01-05] MEDS: PANTOPRAZOLE SODIUM 40 MG TABLET.DR PO SCH (09:01)
[2020-01-05] MEDS: METOPROLOL TARTRATE 50 MG TABLET PO SCH (09:01)
[2020-01-05] MEDS: VENLAFAXINE HCL 75 MG CAP.SR.24H PO SCH (09:01)
[2020-01-05] MEDS: SENNOSIDES/DOCUSATE 8.6-50 MG 1 EACH TABLET PO SCH (09:01)
[2020-01-05] MEDS: SUCRALFATE 1 GM TABLET PO SCH ×2 (09:01→13:06)
[2020-01-05] MEDS: ASPIRIN 325 MG TABLET PO SCH (09:01)
[2020-01-05] MEDS: DIGOXIN 0.125 MG TABLET PO SCH (09:02)
[2020-01-05] MEDS: ENOXAPARIN SODIUM INJ 40 MG/0.4 ML DISP.SYRIN SUBCUT SCH (09:02)
[2020-01-05] MEDS: POLYETHYLENE GLYCOL 3350 POWDER 17 GM/1 PACKET PO SCH (09:02)
[2020-01-05 09:19] LABS: ALBUMIN 3.5 g/dL (3.5-5.0); ALKALINE PHOSPHATASE 81 U/L (38-126); ANION GAP 10 (5-19); ASPARTATE AMINO TRANSFERASE 14 U/L (14-36); BILIRUBIN,DIRECT 0.3 mg/dL (0.0-0.4); BILIRUBIN,TOTAL 0.4 mg/dL (0.2-1.3); BLOOD UREA NITROGEN 10 mg/dL (7-20); CALCIUM 9.5 mg/dL (8.4-10.2); CARBON DIOXIDE 27 mmol/L (22-30); CHLORIDE 105 mmol/L (98-107); GLUCOSE 102 mg/dL (75-110); POTASSIUM 4.2 mmol/L (3.6-5.0); TOTAL PROTEIN 6.6 g/dL (6.3-8.2)
--- NOTE | 2020-01-05 12:51 | PDOC PROGRESS REPORT ---
Subjective Progress Note for:: 01/05/20 Subjective:: 64-year-old female well-known to me from a prior admission who was readmitted on 12/29/2019 for rapid atrial fibrillation in the setting of a severe headache. The patient was previously admitted on 12/20/2019 for rapid A. fib. Her heart rate was significantly improved on Lopressor 50 mg every 6 hours however she had significant pauses as well as episodes of rapid ventricular response worrisome for sick sinus syndrome therefore we recommend that his Lopressor to be decreased to 25 mg p.o. every 6 hours. Unfortunately the patient was discharged on Lopressor 25 mg twice daily and developed rapid A. fib. She was consulted to my partner, Dr. Green on 12/30/2019 who recommended the addition of digoxin. The patient feels well this morning and denies chest pain, palpitations, syncope or presyncope however complains of mild shortness of breath. His telemetry continues to show atrial fibrillation with RVR with heart rates up to 150 to 160 bpm. 01/05/2020: The patient had an uneventful night with a HR at goal now. She has no symptoms and actually feels better. Her telemetry is free of ventricular dysrhythmias as well as significant bradycardic episodes. Her chest x-ray does not show evidence of heart failure. Physical exam on 01/05/2020: GENERAL: Oriented x3 with normal mood. Not in acute distress. Well groomed and well developed. HEENT: Normocephalic, atraumatic. Pupils equal. Sclerae anicteric. Oropharynx moist. NECK: No JVD. No carotid bruits. LUNGS: Clear to auscultation bilaterally. Normal respiratory effort without the use of accessory muscles or intercostal retractions. CARDIOVASCULAR: Irregularly irregular rate and rhythm without murmurs, rubs, or gallops. PMI not displaced. EXTREMITIES: No pitting edema bilaterally, no cyanosis, no clubbing. +2 pulses femoral and pedal pulses bilaterally. SKIN: No lesions or rashes. MUSCULOSKELETAL: No chest tenderness to palpation. Cardiac studies: Echocardiogram on 12/21/2019: -EF 60 to 65%. -No wall motion abnormalities. -Possible inlet VSD. -Mild MR, mild AI, mild TR, mild PI. Reason For Visit: A-FIB WITH RVR Physical Exam Vital Signs: Temp Pulse Resp BP Pulse Ox 97.8 F 97 18 117/83 93 01/05/20 04:30 01/05/20 04:30 01/05/20 04:30 01/05/20 04:30 01/05/20 04:30 Intake & Output 01/04/20 01/05/20 01/06/20 06:59 06:59 06:59 Intake Total 692 240 Balance 692 240 Weight 112.4 kg 112.6 kg Results Laboratory Results: 12/31/19 04:50 01/03/20 10:56 12/28/19 12/28/19 12/28/19 16:40 20:53 20:53 Creatine Kinase < 20 L CK-MB (CK-2) 0.29 Troponin I < 0.012 Cancelled 12/29/19 12/29/19 04:32 10:39 Creatine Kinase CK-MB (CK-2) 0.52 0.46 Troponin I < 0.012 < 0.012 Impressions: Head CT 12/28/19 00:00 IMPRESSION: SURGICAL CHANGES. LARGE CRANIECTOMY DEFECT ON THE RIGHT SIDE WITH PRESUMED CHRONIC CHANGES IN THE RIGHT CEREBRAL HEMISPHERE. NO DEFINITE ACUTE FINDINGS. NO PRIOR STUDIES FOR COMPARISON. EVIDENCE OF ACUTE STROKE: NO. Chest X-Ray 01/04/20 00:00 IMPRESSION: NO ACUTE RADIOGRAPHIC FINDING IN THE CHEST. 01/05/20 08:20 01/05/20 08:20 MCV 84 fl (80-97) 01/05/20 08:20 MCH 28.1 pg (27.0-33.4) 01/05/20 08:20 MCHC 33.7 g/dL (32.0-36.0) 01/05/20 08:20 RDW 17.3 % (11.5-14.0) H 01/05/20 08:20 Seg Neutrophils % 48.6 % (42-78) 01/05/20 08:20 Chloride 105 mmol/L (98-107) 01/05/20 08:20 Carbon Dioxide 27 mmol/L (22-30) 01/05/20 08:20 Anion Gap 10 (5-19) 01/05/20 08:20 Est GFR ( Amer) > 60 (>60) 01/05/20 08:20 Glucose 102 mg/dL (75-110) 01/05/20 08:20 Calcium 9.5 mg/dL (8.4-10.2) 01/05/20 08:20 Magnesium 1.9 mg/dL (1.6-2.3) 01/03/20 10:56 Total Bilirubin 0.4 mg/dL (0.2-1.3) 01/05/20 08:20 AST 14 U/L (14-36) 01/05/20 08:20 Alkaline Phosphatase 81 U/L (38-126) 01/05/20 08:20 Total Protein 6.6 g/dL (6.3-8.2) 01/05/20 08:20 Albumin 3.5 g/dL (3.5-5.0) 01/05/20 08:20 Urine Color YELLOW 12/29/19 13:50 Urine Appearance SLIGHTLY-CLOUDY 12/29/19 13:50 Urine pH 6.0 (5.0-9.0) 12/29/19 13:50 Ur Specific [place] 1.018 12/29/19 13:50 Urine Protein NEGATIVE mg/dL (NEGATIVE) 12/29/19 13:50 Urine Glucose (UA) NEGATIVE mg/dL (NEGATIVE) 12/29/19 13:50 Urine Ketones NEGATIVE mg/dL (NEGATIVE) 12/29/19 13:50 Urine Blood NEGATIVE (NEGATIVE) 12/29/19 13:50 Urine Nitrite NEGATIVE (NEGATIVE) 12/29/19 13:50 Ur Leukocyte Esterase NEGATIVE (NEGATIVE) 12/29/19 13:50 Urine WBC (Auto) 2 /HPF 12/29/19 13:50 Urine RBC (Auto) 13 /HPF 12/29/19 13:50 12/28/19 12/28/19 12/28/19 16:40 20:53 20:53 Creatine Kinase < 20 L CK-MB (CK-2) 0.29 Troponin I < 0.012 Cancelled 12/29/19 12/29/19 04:32 10:39 Creatine Kinase CK-MB (CK-2) 0.52 0.46 Troponin I < 0.012 < 0.012 Assessment & Plan - Diagnosis (1) Atrial fibrillation with RVR Is this a current diagnosis for this admission?: Yes Plan: Her heart rate is at goal. Recommendations: -Continue with current medical management. -The patient will follow up with Dr. Green withing one week of discharge. I already arranged for this. -Hold anticoagulation until cleared by neurology.
--- NOTE | 2020-01-05 13:21 | PDOC DISCHARGE SUMMARY ---
Impression - Admit/DC Date/PCP Admission Date/Primary Care Provider: 12/29/19 13:27 AARTI MORRISON MD Discharge Date: 01/05/20 - Discharge Diagnosis (1) Persistent atrial fibrillation with rapid ventricular response Is this a current diagnosis for this admission?: Yes (2) T2DM (type 2 diabetes mellitus) Is this a current diagnosis for this admission?: Yes (3) S/P craniotomy Is this a current diagnosis for this admission?: Yes - Additional Information Referrals: AARTI MORRISON MD [Primary Care Provider] - 01/08/20 2:30 pm Prescriptions: Digoxin [Lanoxin 0.125 mg Tablet] 0.125 mg PO DAILY #90 tablet Metoprolol Tartrate [Lopressor 50 mg Tablet] 75 mg PO Q12 #60 tablet Home Medications: Albuterol Sulfate [Ventolin Hfa 8 gm Mdi] 2 puff IH TID 12/21/19 Aspirin [Aspirin 325 mg Tablet] 325 mg PO DAILY 12/21/19 Hydrochlorothiazide [Hydrodiuril 25 mg Tablet] 12.5 mg PO DAILY 12/21/19 Montelukast Sodium [Singulair 10 mg Tablet] 10 mg PO QHS 12/21/19 Pantoprazole Sodium [Protonix [address] Tablet] 40 mg PO QAM 12/21/19 Polyethylene Glycol 3350 [Miralax] 1 dose PO DAILY 12/21/19 Pravastatin Sodium 40 mg PO QHS 12/21/19 Sennosides/Docusate 8.6-50 mg [Senna Plus Tablet] 1 tab PO BID 12/21/19 Sucralfate [Carafate 1 gm Tablet] 1 gm PO QID 12/21/19 Venlafaxine HCl ER [Effexor Xr 75 mg Cap.sr] 75 mg PO DAILY 12/21/19 Acetaminophen [Tylenol 325 mg Tablet] 650 mg PO Q4HP PRN tablet 12/23/19 Ergocalciferol (Vitamin D2) [Vitamin D2] 50,000 unit PO GIRON@1000 12/28/19 Digoxin [Lanoxin 0.125 mg Tablet] 0.125 mg PO DAILY #90 tablet 01/05/20 Metoprolol Tartrate [Lopressor 50 mg Tablet] 75 mg PO Q12 #60 tablet 01/05/20 History of Present Illiness History of Present Illness: YESENIA HIGGINS is a 64 year old female, She has a history of CVA status post decompression craniotomy in early November 2019, she came to emergency room for evaluation of headache and right-sided head swelling, in the emergency room CAT scan of the head was done, demonstrated normal size ventricle no hemorrhage, no midline shift, large area of decreased density and encephalomalacia in the right frontal, temporal and parietal lobes no masses no hemorrhage. She was noticed in the emergency room to be in atrial fibrillation with rapid ventricular response, she was then started on intravenous Cardizem infusion. She presented in the same manner the last time she was in the hospital, the last time she was admitted she had atrial fibrillation with rapid ventricular response associated with period of long pauses consistent with sick sinus syndrome. The plan was for her to follow outpatient with EPS, blow molder with the intent to have a pacemaker.Unfortunately she returned to the emergency room for evaluation of headache and again she was found to be in atrial fibrillation with rapid ventricular response, inpatient care was recommended by the ED physician. Hospital Course Hospital Course: Patient was admitted for the management of persistent atrial fibrillation with rapid regular response she was treated initially with intravenous Cardizem infusion to achieve rate control, she was seen in consultation by cardiology Dr. Calderon, digoxin was added to achieve rate control of ventricle, the metoprolol dose was increased to 75 mg p.o. twice daily, rate control was achieved in the last 24 hours, patient is been discharged today.She is not a candidate for anticoagulation because of recent craniotomy, she is supposed to return to [place] for the completion of the craniotomy that was done when she sustained a stroke with cerebral edema Physical Exam Vital Signs: Temp Pulse Resp BP Pulse Ox 98.1 F 84 18 126/78 H 92 01/05/20 11:50 01/05/20 11:50 01/05/20 11:50 01/05/20 11:50 01/05/20 11:50 Intake & Output 01/04/20 01/05/20 01/06/20 06:59 06:59 06:59 Intake Total 692 240 118 Balance 692 240 118 Weight 112.4 kg 112.6 kg General appearance: PRESENT: no acute distress Eye exam: PRESENT: PERRLA Respiratory exam: PRESENT: clear to auscultation mey Cardiovascular exam: PRESENT: +S1, +S2 GI/Abdominal exam: PRESENT: soft Neurological exam: PRESENT: alert, CN II-XII grossly intact Results Laboratory Results: WBC 7.1 10^3/uL (4.0-10.5) 01/05/20 08:20 RBC 4.46 10^6/uL (3.72-5.28) 01/05/20 08:20 Hgb 12.6 g/dL (12.0-15.5) 01/05/20 08:20 Hct 37.3 % (36.0-47.0) 01/05/20 08:20 MCV 84 fl (80-97) 01/05/20 08:20 MCH 28.1 pg (27.0-33.4) 01/05/20 08:20 MCHC 33.7 g/dL (32.0-36.0) 01/05/20 08:20 RDW 17.3 % (11.5-14.0) H 01/05/20 08:20 Plt Count 222 10^3/uL (150-450) 01/05/20 08:20 Lymph % (Auto) 36.9 % (13-45) 01/05/20 08:20 Ada % (Auto) 7.2 % (3-13) 01/05/20 08:20 Eos % (Auto) 6.6 % (0-6) H 01/05/20 08:20 Baso % (Auto) 0.7 % (0-2) 01/05/20 08:20 Absolute Neuts (auto) 3.4 10^3/uL (1.7-8.2) 01/05/20 08:20 Absolute Lymphs (auto) 2.6 10^3/uL (0.5-4.7) 01/05/20 08:20 Absolute Monos (auto) 0.5 10^3/uL (0.1-1.4) 01/05/20 08:20 Absolute Eos (auto) 0.5 10^3/uL (0.0-0.6) 01/05/20 08:20 Absolute Basos (auto) 0.0 10^3/uL (0.0-0.2) 01/05/20 08:20 Seg Neutrophils % 48.6 % (42-78) 01/05/20 08:20 PT 13.5 SEC (11.4-15.4) 12/28/19 16:40 INR 1.01 12/28/19 16:40 Sodium 142.1 mmol/L (137-145) 01/05/20 08:20 Potassium 4.2 mmol/L (3.6-5.0) 01/05/20 08:20 Chloride 105 mmol/L (98-107) 01/05/20 08:20 Carbon Dioxide 27 mmol/L (22-30) 01/05/20 08:20 Anion Gap 10 (5-19) 01/05/20 08:20 BUN 10 mg/dL (7-20) 01/05/20 08:20 Creatinine 0.64 mg/dL (0.52-1.25) 01/05/20 08:20 Est GFR ( Amer) > 60 (>60) 01/05/20 08:20 Est GFR (MDRD) Non-Af > 60 (>60) 01/05/20 08:20 Glucose 102 mg/dL (75-110) 01/05/20 08:20 POC Glucose 104 mg/dL (70-110) 01/05/20 11:49 Calcium 9.5 mg/dL (8.4-10.2) 01/05/20 08:20 Magnesium 1.9 mg/dL (1.6-2.3) 01/03/20 10:56 Total Bilirubin 0.4 mg/dL (0.2-1.3) 01/05/20 08:20 Direct Bilirubin 0.3 mg/dL (0.0-0.4) 01/05/20 08:20 Neonat Total Bilirubin Not Reportable 01/05/20 08:20 Neonat Direct Bilirubin Not Reportable 01/05/20 08:20 Neonat Indirect Bili Not Reportable 01/05/20 08:20 AST 14 U/L (14-36) 01/05/20 08:20 ALT 7 U/L (<35) 01/05/20 08:20 Alkaline Phosphatase 81 U/L (38-126) 01/05/20 08:20 Creatine Kinase < 20 U/L (30-135) L 12/28/19 16:40 CK-MB (CK-2) 0.46 ng/mL (<4.55) 12/29/19 10:39 Troponin I < 0.012 ng/mL 12/29/19 10:39 Total Protein 6.6 g/dL (6.3-8.2) 01/05/20 08:20 Albumin 3.5 g/dL (3.5-5.0) 01/05/20 08:20 Urine Color YELLOW 12/29/19 13:50 Urine Appearance SLIGHTLY-CLOUDY 12/29/19 13:50 Urine pH 6.0 (5.0-9.0) 12/29/19 13:50 Ur Specific [place] 1.018 12/29/19 13:50 Urine Protein NEGATIVE mg/dL (NEGATIVE) 12/29/19 13:50 Urine Glucose (UA) NEGATIVE mg/dL (NEGATIVE) 12/29/19 13:50 Urine Ketones NEGATIVE mg/dL (NEGATIVE) 12/29/19 13:50 Urine Blood NEGATIVE (NEGATIVE) 12/29/19 13:50 Urine Nitrite NEGATIVE (NEGATIVE) 12/29/19 13:50 Urine Bilirubin NEGATIVE (NEGATIVE) 12/29/19 13:50 Urine Urobilinogen NEGATIVE mg/dL (<2.0) 12/29/19 13:50 Ur Leukocyte Esterase NEGATIVE (NEGATIVE) 12/29/19 13:50 Urine WBC (Auto) 2 /HPF 12/29/19 13:50 Urine RBC (Auto) 13 /HPF 12/29/19 13:50 Urine Bacteria (Auto) TRACE /HPF 12/29/19 13:50 Squamous Epi Cells Auto 11 /HPF 12/29/19 13:50 Urine Mucus (Auto) RARE /LPF 12/29/19 13:50 Urine Ascorbic Acid NEGATIVE (NEGATIVE) 12/29/19 13:50 Digoxin 0.60 ng/mL (0.8-2.0) L 01/03/20 10:56 12/28/19 12/28/19 12/29/19 20:53 20:53 04:32 CK-MB (CK-2) 0.29 0.52 Troponin I < 0.012 Cancelled < 0.012 12/29/19 10:39 CK-MB (CK-2) 0.46 Troponin I < 0.012 Impressions: Head CT 12/28/19 00:00 IMPRESSION: SURGICAL CHANGES. LARGE CRANIECTOMY DEFECT ON THE RIGHT SIDE WITH PRESUMED CHRONIC CHANGES IN THE RIGHT CEREBRAL HEMISPHERE. NO DEFINITE ACUTE FINDINGS. NO PRIOR STUDIES FOR COMPARISON. EVIDENCE OF ACUTE STROKE: NO. Chest X-Ray 01/04/20 00:00 IMPRESSION: NO ACUTE RADIOGRAPHIC FINDING IN THE CHEST. Stroke Is this a Stroke Patient?: No Acute Heart Failure Is this a Heart Failure Patient?: No
[2020-01-05 13:33] VITALS: BP 107/61
== END 2020-01-05 14:12 | disposition home health service (06) | DRG 310 ==
LOC: ER 14:15 → INTOOBSV 19:28 → EH 19:28 → 5 22:48 → OBSVTOIN 12-29 13:27
PROVIDERS: ADMIT Internal Medicine; ATTEND Internal Medicine
DX: I48.19 Other persistent atrial fibrillation (principal); E11.9 Type 2 diabetes mellitus without complications; I49.5 Sick sinus syndrome; I10 Essential (primary) hypertension; F32.9 Major depressive disorder, single episode, unspecified; E78.5 Hyperlipidemia, unspecified; Z79.899 Other long term (current) drug therapy; Z86.73 Personal history of transient ischemic attack (TIA), and cerebral infarction without residual deficits; Z87.891 Personal history of nicotine dependence; Z88.6 Allergy status to analgesic agent; Z88.8 Allergy status to other drugs, medicaments and biological substances; Z79.82 Long term (current) use of aspirin
CPT/HCPCS: 36415; 70450; 71046; 80048; 80053; 80162; 81001; 82550; 82553; 82962; 83735; 84484; 85025; 85610; 93005; 93010; 96365; 96375; 99285; G0378; J1650; J3490; J7030

== ENCOUNTER 2020-02-05 12:43 | Inpatient (IN) | payer MEDICAID ==
[2020-02-05 13:38] LABS: ABSOLUTE BASOPHILS # (AUTO) 0.1 10^3/uL (0.0-0.2); ABSOLUTE EOSINOPHILS # (AUTO) 0.1 10^3/uL (0.0-0.6); ABSOLUTE LYMPHOCYTES (AUTO) 2.6 10^3/uL (0.5-4.7); ABSOLUTE NEUT (AUTO) 10.3 10^3/uL (1.7-8.2); BASOPHILS % (AUTO) 0.5 % (0-2); HEMATOCRIT 38.2 % (36.0-47.0); HEMOGLOBIN 12.7 g/dL (12.0-15.5); LYMPHOCYTES % (AUTO) 18.1 % (13-45); MEAN CORPUSCULAR HEMOGLOBIN 26.7 pg (27.0-33.4); MEAN CORPUSCULAR HGB CONC 33.4 g/dL (32.0-36.0); MEAN CORPUSCULAR VOLUME 80 fl (80-97); PLATELET COUNT 274 10^3/uL (150-450); RED BLOOD COUNT 4.77 10^6/uL (3.72-5.28); RED CELL DISTRIBUTION WIDTH 17.1 % (11.5-14.0); SEGMENTED NEUTROPHILS % (AUTO) 73.4 % (42-78); TOTAL CELLS COUNTED % (AUTO) 100 %; WHITE BLOOD COUNT 14.1 10^3/uL (4.0-10.5)
[2020-02-05 14:00] LABS: ALBUMIN 3.6 g/dL (3.5-5.0); ALKALINE PHOSPHATASE 80 U/L (38-126); ANION GAP 11 (5-19); ASPARTATE AMINO TRANSFERASE 22 U/L (14-36); BILIRUBIN,DIRECT 0.2 mg/dL (0.0-0.4); BILIRUBIN,TOTAL 0.6 mg/dL (0.2-1.3); BLOOD UREA NITROGEN 10 mg/dL (7-20); CALCIUM 9.4 mg/dL (8.4-10.2); CARBON DIOXIDE 25 mmol/L (22-30); CHLORIDE 104 mmol/L (98-107); CREATINE KINASE 46 U/L (30-135); GLUCOSE 138 mg/dL (75-110); POTASSIUM 4.3 mmol/L (3.6-5.0); TOTAL PROTEIN 7.3 g/dL (6.3-8.2)
[2020-02-05 14:11] LABS: CREATINE KINASE MB < 0.22 ng/mL (<4.55); TROPONIN I < 0.012 ng/mL
--- NOTE | 2020-02-05 14:24 | RADIOLOGY REPORT (SQ) ---
EXAM DESCRIPTION: CHEST SINGLE VIEW IMAGES COMPLETED DATE/TIME: 02/05/2020 2:17 pm REASON FOR STUDY: CP/SOB COMPARISON: 01/04/2020 EXAM PARAMETERS: NUMBER OF VIEWS: One view. TECHNIQUE: Single frontal radiographic view of the chest acquired. RADIATION DOSE: NA LIMITATIONS: None. FINDINGS: LUNGS AND PLEURA: Right lower lobe airspace disease consistent with atelectasis or pneumon ia. No pneumothorax. MEDIASTINUM AND HILAR STRUCTURES: No masses. Contour normal. HEART AND VASCULAR STRUCTURES: Cardiomegaly. No failure. BONES: No acute findings. HARDWARE: None in the chest. OTHER: No other significant finding. IMPRESSION: Right lower lobe airspace disease consistent with pneumonia. Stable mild cardiomegaly. TECHNICAL DOCUMENTATION: JOB ID: [id number] 2010 [employer]- All Rights Reserved Reading location - IP/workstation name: [email or web address]
--- NOTE | 2020-02-05 14:55 | ER Document Report ---
ED Respiratory Problem - General Chief Complaint: Shortness Of Breath Stated Complaint: SHORTNESS OF BREATH Time Seen by Provider: 02/05/20 14:53 Primary Care Provider: AARTI MORRISON MD [Primary Care Provider] - Follow up as needed TRAVEL OUTSIDE OF THE [place] IN LAST 30 DAYS: No - HPI Notes: 64-year-old female to the emergency department via EMS with complaints of shortness of breath that has gotten progressively worse over the weekend. She states it started earlier in the weekend and she just brushed it off of something like a cold. However today she got acutely more short of breath and started to see hemoptysis when she is coughing. She denies any fevers. She denies any nausea, vomiting. She denies any possible COVID-19 contacts. She did have a negative rapid swab with EMS. She does have a past medical history for hemorrhagic stroke with evacuation of thrombus approximately 1 year ago. She is followed by Dr. Morrison. She is never had a clot in her lungs. She is not any blood thinners. She is predominantly bedbound since she had a hemorrhagic stroke and she has residual left-sided weakness. She states that has not gotten worse. She admits that it hurts more when she is trying to take a deep breath or cough. - Related Data Allergies/Adverse Reactions: baclofen Allergy (Verified 12/20/19 20:12) morphine Allergy (Verified 12/20/19 20:12) Past Medical History - General Information source: Patient - Social History Smoking Status: Never Smoker Frequency of alcohol use: None Drug Abuse: None Family History: Reviewed & Not Pertinent - Past Medical History Cardiac Medical History: Reports: Hx Atrial Fibrillation, Hx Hypertension Pulmonary Medical History: Reports: Hx Asthma Neurological Medical History: Reports: Hx Cerebrovascular Accident - s/p thrombectomy and decompression craniotomy Endocrine Medical History: Reports: Hx Diabetes Mellitus Type 2 Psychiatric Medical History: Reports: Hx Depression Past Surgical History: Reports: Hx Neurologic Surgery - Right-sided decompression craniotomy, Hx Tubal Ligation Review of Systems - Review of Systems Constitutional: denies: Chills, Fever EENT: No symptoms reported Cardiovascular: Chest pain. denies: Palpitations, Heart racing, Orthopnea, Dyspnea, Syncope, Dizziness, Lightheaded Respiratory: Cough, Hemoptysis, Short of breath Gastrointestinal: denies: Abdominal pain, Diarrhea, Nausea, Vomiting Genitourinary: No symptoms reported Female Genitourinary: No symptoms reported Musculoskeletal: No symptoms reported Skin: No symptoms reported Hematologic/Lymphatic: No symptoms reported Neurological/Psychological: No symptoms reported -: Yes All other systems reviewed and negative Physical Exam - Vital signs Vitals: Resp Pulse Ox 29 H 94 02/05/20 12:53 02/05/20 12:53 Interpretation: Tachypneic - General General appearance: Alert In distress: Mild Notes: Mild distress. Patient keeps trying to clear her throat try to get a good deep breath. She is tachypneic. - HEENT Head: Normocephalic, Atraumatic Eyes: Normal Pupils: PERRL Neck: Normal, Supple. No: Lymphadenopathy - Respiratory Respiratory status: No respiratory distress, Tachypnea Chest status: Nontender. No: Accessory muscle use Breath sounds: Normal, Wheezing - Faint expiratory wheezes in bilateral lower lung lepe. Very poor inspiratory effort and decreased air movement. No: Rales, Rhonchi Chest palpation: Normal - Cardiovascular Rhythm: Regular Heart sounds: Normal auscultation Murmur: No - Abdominal Inspection: Normal Distension: No distension Bowel sounds: Normal Tenderness: Nontender. No: Tender, McBurney's point, Fu's sign, Guarding, Rebound Organomegaly: No organomegaly - Back Back: Normal, Nontender - Extremities General upper extremity: Normal inspection, Nontender, Normal color, Normal ROM, Normal temperature General lower extremity: Normal inspection, Nontender, Normal color, Normal ROM, Normal temperature, Normal weight bearing. No: Mimi's sign - Neurological Neuro grossly intact: Yes Cognition: Normal Orientation: AAOx4 Aletha Coma Scale Eye Opening: Spontaneous [place] Coma Scale Verbal: Oriented [place] Coma Scale Motor: Obeys Commands Aletha Coma Scale Total: 15 Speech: Normal Cranial nerves: Normal Sensory: Normal Notes: Patient with residual left-sided weakness from her stroke. She has very little movement of the left arm and lower leg. She states that it is at its baseline. She has full range of motion in her right upper extremity and right lower extremity against resistance. Her sensation is completely intact on the side. She has no facial droop. - Psychological Associated symptoms: Normal affect, Normal mood - Skin Skin Temperature: Warm Skin Moisture: Dry Skin Color: Normal Course - Re-evaluation Re-evalutation: 02/05/20 18:37 Received phone call from radiology and also discussed with my ER attending, Dr. Johnson, about patient's CTA with evidence for right main PE with right heart strain. Also with patchy opacities may be infectious. Patient had a negative Covid screen with EMS. Will start heparin and admit patient. Spoke with Dr. Morrison. He agrees with plan for admission. He would like for the patient to go to IMCU. He is aware of heparin and agrees with that plan. Patient did have a history of a hemorrhagic stroke with evacuation approximately a year ago. However we both agree that the PE needs attention. I also advised of the patchy opacities concerning for infection. He is aware of the negative rapid with EMS but would like for me to reswab her. Like her to go to a Covid unit on IMCU. He is aware that I also covered her with azithromycin and Rocephin. Patient is aware of admission and agrees with plan. - Vital Signs Vital signs: Temp Pulse Resp BP Pulse Ox 97.5 F 35 H 148/100 H 95 02/05/20 16:52 02/05/20 17:01 02/05/20 17:01 02/05/20 17:01 - Laboratory Result Diagrams: 02/05/20 13:34 02/05/20 13:34 Laboratory results interpreted by me: 02/05/20 02/05/20 13:34 13:34 WBC 14.1 H MCH 26.7 L RDW 17.1 H Absolute Neuts (auto) 10.3 H Creatinine 0.45 L Glucose 138 H - Diagnostic Test Radiology reviewed: Image reviewed, Reports reviewed - EKG Interpretation by Me Additional EKG results interpreted by me: 02/05/20 16:02 Rate: 89 Rhythm: Atrial fib Interpretation: No STEMI, rate controlled atrial fibrillation and not significantly different from prior on 12/30/2019 Discharge - Discharge Clinical Impression: Shortness of breath, Pulmonary embolism on right, Lung consolidation, Suspected COVID-19 virus infection Condition: Stable Disposition: ADMITTED INPATIENT Admitting Provider: Andrew Unit Admitted: [facility] Referrals: AARTI MORRISON MD [Primary Care Provider] - Follow up as needed
[2020-02-05] MEDS ORDERED: ALBUTEROL SULFATE 0.083% NEB 2.5 MG/3 ML AMPUL NEB ONE (15:59)
[2020-02-05] MEDS ORDERED: CEFTRIAXONE 1 GM/D5W RTU 1 GM/50 ML RTUPB IV ONE (16:00)
[2020-02-05] MEDS ORDERED: AZITHROMYCIN INJ 500 MG VIAL IV ONE (16:00)
[2020-02-05] MEDS ORDERED: HEPARIN SOD (PORCINE) 1,000 UNIT/ML 10 ML VIAL IV ONE (17:32)
--- NOTE | 2020-02-05 17:32 | EKG REPORT ---
SEVERITY:- ABNORMAL ECG - ATRIAL FIBRILLATION BORDERLINE T WAVE ABNORMALITIES : Confirmed by: Papi Clinton MD 05-Feb-2020 17:31:53
--- NOTE | 2020-02-05 18:11 | RADIOLOGY REPORT (SQ) ---
EXAM DESCRIPTION: CTA CHEST IMAGES COMPLETED DATE/TIME: 02/05/2020 4:31 pm REASON FOR STUDY: Hemoptysis, SOB COMPARISON: Chest radiograph same date. TECHNIQUE: CT scan of the chest performed using helical scanning technique with dynamic intravenous contrast injection. Images reviewed with lung, soft tissue and bone windows. Reconstructed coronal and sagittal MPR images reviewed. Additional 3 dimensional post-processing performed to develop Maximal Intensity Projection images (IA P). All images stored on PACS. All CT scanners at this facility use dose modulation, iterative reconstruction, and/or weight based d osing when appropriate to reduce radiation dose to as low as reasonably achievable (ALARA). [facility]: Dose Right [facility]: CareDose [facility]: Dose Right [facility]: Teradose 4D [facility]: [employer] CONTRAST TYPE AND DOSE: contrast/concentration: Isovue 350.00 mmol/ml; Total Contrast Delivered: 71. 0 ml; Total Saline Delivered: 46.6 ml Contrast bolus optimized for the pulmonary arteries. Not diagnostic for the aorta. RENAL FUNCTION: GFR > 60. RADIATION DOSE: CT Rad equipment meets quality standard of care and radiation dose reduction techniq ues were employed. CTDIvol: 33.1 - 38.2 mGy. DLP: 1335 mGy-cm. . LIMITATIONS: None. FINDINGS: LUNGS AND PLEURA: The trachea has normal caliber and appearance. There are patchy areas o f consolidation in the right lower lobe with a small right pleural effusion. Respiratory motion obsc ures detail. No pneumothorax. AORTA AND GREAT VESSELS: No aneurysm. Contrast bolus not optimized for the aorta. HEART: The heart has normal size. The RV/LV ratio is 4.8/3.6 or 1.33. No significant coronary artery calcifications. PULMONARY ARTERIES: There is extensive filling defect in the right main, upper, middle and lower lobe , lobar and segmental pulmonary arteries. Small amount of thrombus in the left lower lobar pulmonary artery. The main pulmonary artery is dilated measuring 4.3 cm diameter. HILAR AND MEDIASTINAL STRUCTURES: No identified masses or abnormal nodes. HARDWARE: None in the chest. UPPER ABDOMEN: No significant findings. Limited exam. THYROID AND OTHER SOFT TISSUES: No masses. No adenopathy. BONES: No acute or significant finding. 3D MIPS: Confirm above findings. OTHER: No other significant finding. IMPRESSION: 1. Extensive right pulmonary artery emboli. There are CT findings of right heart strain. 2. Enlarged main pulmonary artery which can be seen with pulmonary arterial hypertension. 3. Right lower lobe patchy areas of consolidation which may represent infectious/inflammatory process or pulmonary infarct. Small right pleural effusion. COMMENT: Findings discussed with Kaitlynn Reid on 02/05/2020 at 1805 hours Quality ID # [id number]: Final reports with documentation of one or more dose reduction techniques (e.g., Au tomated exposure control, adjustment of the mA and/or kV according to patient size, use of iterative reconstruction technique) TECHNICAL DOCUMENTATION: JOB ID: [id number] 2010 [employer]- All Rights Reserved Reading location - IP/workstation name: [email or web address]
[2020-02-05 18:49] LABS: INTERNATIONAL RATION (INR) 1.37; PARTIAL THROMBOPLASTIN TIME 37.7 SEC (23.5-35.8); PROTHROMBIN TIME 17.1 SEC (11.4-15.4)
[2020-02-05] MEDS ORDERED: HEPARIN SOD (PORCINE) 1,000 UNIT/ML 10 ML VIAL IV PRN (20:33)
[2020-02-05] MEDS: HEPARIN SODIUM,PORCINE/D5W 25,000 UNIT/250 ML RTUINJ IV PRN (21:12)
[2020-02-05] MEDS ORDERED: IPRATROPIUM/ALBUTEROL 0.5-2.5 MG/3 ML AMPUL NEB PRN (21:56)
--- NOTE | 2020-02-05 22:01 | PDOC H&P ---
History of Present Illness Admission Date/PCP: 02/05/20 18:50 AARTI MORRISON MD History of Present Illness: YESENIA HIGGINS is a 64 year old female, She had a stroke on 12/04/2019 while she was in [place], this was treated with thrombolytic followed by thrombectomy complicated with cerebral edema and midline shift treated with decompressive hemicraniotomy on 12/05/2019. She was admitted previously for evaluation and management of paroxysmal atrial fibrillation with rapid ventricular response.She came to the emergency room for evaluation of shortness of breath, hemoptysis, she said the symptoms has progressively worsen in the last couple of days. In the emergency room she had CT angiogram of the chest, it demonstrated patchy areas of consolidation in the right lower lobe with a small left pleural effusion also found was extensive filling defect in the right main, upper, middle , and lower lobe, lobar and segmental pulmonary arteries, small amount of thrombus in the left lower lobe pulmonary artery. A rapid SARS-CoV-2 test was negative, a confirmatory PCR test was also negative. Past Medical History Cardiac Medical History: Reports: Atrial Fibrillation, Hypertension Pulmonary Medical History: Reports: Asthma Neurological Medical History: Reports: Ischemic CVA Endocrine Medical History: Reports: Diabetes Mellitus Type 2 Psychiatric Medical History: Reports: Depression Past Surgical History Past Surgical History: Reports: Tubal Ligation Social History Smoking Status: Never Smoker Frequency of Alcohol Use: None Hx Recreational Drug Use: No Drugs: None Hx Prescription Drug Abuse: No Family History Family History: Reviewed & Not Pertinent Parental Family History Reviewed: Yes Children Family History Reviewed: Yes Sibling(s) Family History Reviewed.: Yes Medication/Allergy Home Medications: Albuterol Sulfate [Ventolin Hfa 8 gm Mdi] 1 puff IH Q4HP PRN 12/21/19 Aspirin [Aspirin 325 mg Tablet] 325 mg PO DAILY 12/21/19 Montelukast Sodium [Singulair 10 mg Tablet] 10 mg PO QHS 12/21/19 Pantoprazole Sodium [Protonix [address] Tablet] 40 mg PO QAM 12/21/19 Pravastatin Sodium 40 mg PO QHS 12/21/19 Sennosides/Docusate 8.6-50 mg [Senna Plus Tablet] 2 tab PO HSP PRN 12/21/19 Sucralfate [Carafate 1 gm Tablet] 1 gm PO BID 12/21/19 Venlafaxine HCl ER [Effexor Xr 75 mg Cap.sr] 75 mg PO DAILY 12/21/19 Ergocalciferol (Vitamin D2) [Vitamin D2] 50,000 unit PO GIRON@1000 12/28/19 Digoxin [Lanoxin 0.125 mg Tablet] 0.125 mg PO DAILY #90 tablet 01/05/20 Metoprolol Tartrate [Lopressor 50 mg Tablet] 75 mg PO Q12 #60 tablet 01/05/20 Acetaminophen [Tylenol 325 mg Tablet] 650 mg PO Q4HP PRN 02/06/20 Hydrochlorothiazide [Hydrodiuril 12.5 mg Tablet] 12.5 mg PO DAILY 02/06/20 Polyethylene Glycol 3350 [Miralax Powder 17 gm/Packet] 17 gm PO DAILY 02/06/20 Allergies/Adverse Reactions: baclofen Allergy (Verified 12/20/19 20:12) morphine Allergy (Verified 12/20/19 20:12) Review of Systems Constitutional: ABSENT: chills, fever(s), headache(s), weight gain, weight loss Eyes: ABSENT: visual disturbances Ears: ABSENT: hearing changes Cardiovascular: PRESENT: dyspnea on exertion, palpitations Respiratory: PRESENT: dyspnea, hemoptysis Gastrointestinal: ABSENT: abdominal pain, constipation, diarrhea, hematemesis, hematochezia, nausea, vomiting Genitourinary: ABSENT: dysuria, hematuria Musculoskeletal: ABSENT: joint swelling Integumentary: ABSENT: rash, wounds Neurological: ABSENT: abnormal gait, abnormal speech, confusion, dizziness, focal weakness, syncope Psychiatric: ABSENT: anxiety, depression, homidical ideation, suicidal ideation Endocrine: ABSENT: cold intolerance, heat intolerance, menstrual abnormalities, polydipsia, polyuria Hematologic/Lymphatic: ABSENT: easy bleeding, easy bruising, lymphadenopathy Physical Exam Vital Signs: Temp Pulse Resp BP Pulse Ox 97.5 F 23 H 165/102 H 92 02/05/20 16:52 02/05/20 21:32 02/05/20 21:32 02/05/20 21:32 Intake & Output 02/04/20 02/05/20 02/06/20 06:59 06:59 06:59 Intake Total 50 Balance 50 Weight 109.5 kg General appearance: PRESENT: no acute distress Head exam: PRESENT: atraumatic, normocephalic Eye exam: PRESENT: PERRLA Ear exam: PRESENT: normal external ear exam Mouth exam: PRESENT: moist, tongue midline Neck exam: PRESENT: full ROM Respiratory exam: PRESENT: clear to auscultation mey Cardiovascular exam: PRESENT: RRR, +S1, +S2 Vascular exam: PRESENT: normal capillary refill GI/Abdominal exam: PRESENT: normal bowel sounds, soft Rectal exam: PRESENT: deferred Neurological exam: PRESENT: alert, motor sensory deficit Psychiatric exam: PRESENT: appropriate affect, normal mood Skin exam: PRESENT: dry, intact, warm. ABSENT: cyanosis, rash Results Laboratory Results: 02/05/20 13:34 02/05/20 13:34 02/05/20 02/05/20 02/05/20 13:02 13:34 13:34 WBC 14.1 H RBC 4.77 Hgb 12.7 Hct 38.2 MCV 80 MCH 26.7 L MCHC 33.4 RDW 17.1 H Plt Count 274 Seg Neutrophils % 73.4 Sodium 139.5 Potassium 4.3 Chloride 104 Carbon Dioxide 25 Anion Gap 11 BUN 10 Creatinine 0.45 L Est GFR ( Amer) > 60 Glucose 138 H Lactic Acid 1.5 Calcium 9.4 Total Bilirubin 0.6 AST 22 Alkaline Phosphatase 80 Total Protein 7.3 Albumin 3.6 02/05/20 02/05/20 02/05/20 13:34 13:34 15:49 Creatine Kinase 46 CK-MB (CK-2) < 0.22 Troponin I < 0.012 < 0.012 Impressions: Chest X-Ray 02/05/20 00:00 IMPRESSION: Right lower lobe airspace disease consistent with pneumonia. Stable mild cardiomegaly. Chest/Abdomen CTA 02/05/20 15:59 IMPRESSION: 1. Extensive right pulmonary artery emboli. There are CT findings of right heart strain. 2. Enlarged main pulmonary artery which can be seen with pulmonary arterial hypertension. 3. Right lower lobe patchy areas of consolidation which may represent infectious/inflammatory process or pulmonary infarct. Small right pleural effusion. Assessment & Plan - Diagnosis (1) Pulmonary embolism Qualifiers: Pulmonary embolism type: other Chronicity: acute Acute cor pulmonale presence: with acute cor pulmonale Qualified Code(s): I26.09 - Other pulmonary embolism with acute cor pulmonale Is this a current diagnosis for this admission?: Yes Plan: She has massive pulmonary embolism with evidence of right heart strain she also recently had right hemicraniotomy in November 2019 ,the use of anticoagulation in this setting carries a potential risk of intracranial hemorrhage but there is no choice in this case with the burden of clot in the pulmonary arterial circu lation patient need to be anticoagulated, presently hemodynamically stable. There is no indication to evaluate for thrombophilia because it would not change management specialist plan. She has atrial fibrillation, she needs chronic anticoagulant anyway but this was held back because of the recent craniotomy. She will be on lifelong anticoagulation (2) Paroxysmal atrial fibrillation Is this a current diagnosis for this admission?: Yes (3) S/P craniotomy Is this a current diagnosis for this admission?: Yes - Time Time Spent: Greater than 70 Minutes Medications reviewed and adjusted accordingly: Yes Anticipated Discharge Disposition: Home, Self Care Anticipated Discharge Timeframe: 7 days - Inpatient Certification Based on my medical assessment, after consideration of the patient's comorbidities, presenting symptoms, or acuity I expect that the services needed warrant INPATIENT care.: Yes I certify that my determination is in accordance with my understanding of Medicare's requirements for reasonable and necessary INPATIENT services [42 CFR 412.3e].: Yes
[2020-02-05 22:52] LABS: ABSOLUTE EOSINOPHILS # (AUTO) 0.2 10^3/uL (0.0-0.6); ABSOLUTE LYMPHOCYTES (AUTO) 2.3 10^3/uL (0.5-4.7); ABSOLUTE NEUT (AUTO) 8.5 10^3/uL (1.7-8.2); BASOPHILS % (AUTO) 0.3 % (0-2); EOSINOPHILS % (AUTO) 1.6 % (0-6); HEMATOCRIT 35.4 % (36.0-47.0); HEMOGLOBIN 11.8 g/dL (12.0-15.5); MEAN CORPUSCULAR HEMOGLOBIN 26.6 pg (27.0-33.4); MEAN CORPUSCULAR HGB CONC 33.3 g/dL (32.0-36.0); MEAN CORPUSCULAR VOLUME 80 fl (80-97); PLATELET COUNT 234 10^3/uL (150-450); RED BLOOD COUNT 4.42 10^6/uL (3.72-5.28); RED CELL DISTRIBUTION WIDTH 17.1 % (11.5-14.0); SEGMENTED NEUTROPHILS % (AUTO) 71.1 % (42-78); TOTAL CELLS COUNTED % (AUTO) 100 %
[2020-02-05 23:05] LABS: INTERNATIONAL RATION (INR) 1.27
[2020-02-05 23:27] LABS: PARTIAL THROMBOPLASTIN TIME 147.7 SEC (23.5-35.8)
[2020-02-05 23:38] LABS: CREATINE KINASE MB < 0.22 ng/mL (<4.55); TROPONIN I < 0.012 ng/mL
[2020-02-05 23:54] LABS: PHOSPHORUS 4.8 mg/dL (2.5-4.5)
[2020-02-06 00:11] LABS: FREE T4 (FREE THYROXINE) 1.81 ng/dL (0.78-2.19)
[2020-02-06 00:25] LABS: THYROID STIMULATING HORMONE 0.89 uIU/mL (0.47-4.68)
[2020-02-06 03:33] LABS: APPEARANCE,URINE CLEAR; BILIRUBIN,URINE NEGATIVE (NEGATIVE); GLUCOSE, URINE NEGATIVE (NEGATIVE); KETONES,URINE NEGATIVE (NEGATIVE); LEUKOCYTE ESTERASE,URINE NEGATIVE (NEGATIVE); NITRITE,URINE NEGATIVE (NEGATIVE); PROTEIN,URINE 30 mg/dL (NEGATIVE); URINE SPECIFIC GRAVITY 1.054
[2020-02-06 03:35] LABS: COLOR,URINE DARK YELLOW
[2020-02-06 03:45] LABS: URINE AMPHETAMINES SCREEN NEGATIVE; URINE BARBITURATES SCREEN NEGATIVE; URINE BENZODIAZEPINES SCREEN NEGATIVE; URINE COCAINE SCREEN NEGATIVE; URINE METHADONE SCREEN NEGATIVE; URINE PHENCYCLIDINE SCREEN NEGATIVE
[2020-02-06 03:48] LABS: URINE MARIJUANA (THC) SCREEN UNCONFIRMED POSITIVE
[2020-02-06 04:37] LABS: HEMATOCRIT 35.9 % (36.0-47.0); MEAN CORPUSCULAR HEMOGLOBIN 26.8 pg (27.0-33.4); MEAN CORPUSCULAR HGB CONC 33.3 g/dL (32.0-36.0); MEAN CORPUSCULAR VOLUME 81 fl (80-97); PLATELET COUNT 237 10^3/uL (150-450); RED BLOOD COUNT 4.46 10^6/uL (3.72-5.28); RED CELL DISTRIBUTION WIDTH 17.2 % (11.5-14.0)
[2020-02-06 04:57] LABS: ALBUMIN 3.4 g/dL (3.5-5.0); ALKALINE PHOSPHATASE 80 U/L (38-126); ANION GAP 12 (5-19); ASPARTATE AMINO TRANSFERASE 17 U/L (14-36); BILIRUBIN,DIRECT 0.2 mg/dL (0.0-0.4); BILIRUBIN,TOTAL 0.4 mg/dL (0.2-1.3); BLOOD UREA NITROGEN 11 mg/dL (7-20); CALCIUM 9.1 mg/dL (8.4-10.2); CARBON DIOXIDE 24 mmol/L (22-30); CHLORIDE 104 mmol/L (98-107); CHOLESTEROL 127.77 mg/dL (0-200); CREATINE KINASE 28 U/L (30-135); GLUCOSE 159 mg/dL (75-110); POTASSIUM 3.6 mmol/L (3.6-5.0); TOTAL PROTEIN 6.9 g/dL (6.3-8.2); TRIGLYCERIDES 137 mg/dL (<150)
[2020-02-06 05:08] LABS: DIRECT LDL 70 mg/dL (<100)
[2020-02-06 05:10] LABS: CREATINE KINASE MB < 0.22 ng/mL (<4.55); TROPONIN I < 0.012 ng/mL
[2020-02-06] MEDS: HEPARIN SODIUM,PORCINE/D5W 25,000 UNIT/250 ML RTUINJ IV PRN (06:02)
[2020-02-06] MEDS ORDERED: ACETAMINOPHEN 325 MG TABLET PO ONE (10:15)
[2020-02-06 11:03] LABS: CREATINE KINASE MB < 0.22 ng/mL (<4.55); TROPONIN I < 0.012 ng/mL
[2020-02-06] MEDS ORDERED: METOPROLOL TARTRATE 50 MG TABLET PO SCH (13:00)
--- NOTE | 2020-02-06 19:24 | RADIOLOGY REPORT (SQ) ---
EXAM DESCRIPTION: CT HEAD WITHOUT IMAGES COMPLETED DATE/TIME: 02/06/2020 6:11 pm REASON FOR STUDY: h/o CVA. COMPARISON: 12/28/2019. TECHNIQUE: Axial images acquired through the brain without intravenous contrast. Images reviewed wi bone, brain and subdural windows. Additional sagittal and coronal reconstructions were generated. Images stored on PACS. All CT scanners at this facility use dose modulation, iterative reconstruction, and/or weight based d osing when appropriate to reduce radiation dose to as low as reasonably achievable (ALARA). [facility]: Dose Right [facility]: CareDose [facility]: Dose Right [facility]: Teradose 4D [facility]: [employer] RADIATION DOSE: mGy. LIMITATIONS: None. FINDINGS: VENTRICLES: Normal size and contour. CEREBRUM: Encephalomalacia and gliosis involving the right frontal parietal lobe is stable from prior examination. Otherwise normal owen-white matter differentiation. Mild patchy periventricular and d eep white matter hypodense attenuation consistent with mild chronic small vessel ischemic change. Th ere is intracranial atherosclerosis. Normal owen/white matter differentiation. No areas of low densit y in the white matter. CEREBELLUM: No masses. No hemorrhage. No alteration of density. No evidence for acute infarction. EXTRAAXIAL SPACES: No fluid collections. No masses. ORBITS AND GLOBE: No intra- or extraconal masses. Normal contour of globe without masses. CALVARIUM: Right frontoparietal craniotomy unchanged. PARANASAL SINUSES: No fluid or mucosal thickening. SOFT TISSUES: No mass or hematoma. OTHER: No other significant finding. IMPRESSION: 1. Large area of encephalomalacia and gliosis consistent with prior right frontoparietal infarct, sta ble. No evidence of acute intracranial hemorrhage, mass, mass effect, or evidence of acute territori al infarct. . 2. Right frontoparietal craniotomy stable. EVIDENCE OF ACUTE STROKE: NO. COMMENT: Quality ID # [id number]: Final reports with documentation of one or more dose reduction techniques (e.g., Automated exposure control, adjustment of the mA and/or kV according to patient size, use of iterative reconstruction technique) TECHNICAL DOCUMENTATION: JOB ID: [id number] 2010 [employer]- All Rights Reserved Reading location - IP/workstation name: [email or web address]
--- NOTE | 2020-02-06 19:55 | PDOC PROGRESS REPORT ---
Subjective Date:: 02/06/20 Subjective:: Patient was admitted yesterday when she presented with massive pulmonary embolis m, presently on anticoagulation with IV heparin, stable hemodynamically Reason For Visit: SHORTNESS OF BREATH,PULMONARY EMBOLISM ON RIGHT Physical Exam Vital Signs: Temp Pulse Resp BP Pulse Ox 98.5 F 134 H 20 139/83 H 91 L 02/06/20 07:59 02/06/20 14:00 02/06/20 13:56 02/06/20 07:59 02/06/20 13:56 Intake & Output 02/05/20 02/06/20 02/07/20 06:59 06:59 06:59 Intake Total 225 Balance 225 Weight 109.5 kg General appearance: PRESENT: no acute distress Eye exam: PRESENT: PERRLA Respiratory exam: PRESENT: clear to auscultation mey Cardiovascular exam: PRESENT: +S1, +S2 GI/Abdominal exam: PRESENT: soft Neurological exam: PRESENT: alert, CN II-XII grossly intact Results Laboratory Results: 02/06/20 04:06 02/06/20 04:06 02/05/20 02/05/20 02/05/20 22:30 22:30 22:30 WBC RBC Hgb Hct MCV MCH MCHC RDW Plt Count Seg Neutrophils % Sodium Potassium Chloride Carbon Dioxide Anion Gap BUN Creatinine Est GFR ( Amer) Glucose Calcium Phosphorus 4.8 H Magnesium 2.0 Total Bilirubin AST Alkaline Phosphatase Ammonia 9.0 Total Protein Albumin Triglycerides Cholesterol LDL Cholesterol Direct VLDL Cholesterol HDL Cholesterol Amylase 41 Lipase 87.4 TSH 0.89 Free T4 1.81 Urine Color Urine Appearance Urine pH Ur Specific Gonzales Urine Protein Urine Glucose (UA) Urine Ketones Urine Blood Urine Nitrite Ur Leukocyte Esterase Urine WBC (Auto) Urine RBC (Auto) 02/05/20 02/06/20 02/06/20 22:30 03:00 04:06 WBC 12.0 H RBC 4.42 Hgb 11.8 L Hct 35.4 L MCV 80 MCH 26.6 L MCHC 33.3 RDW 17.1 H Plt Count 234 Seg Neutrophils % 71.1 Sodium 140.0 Potassium 3.6 Chloride 104 Carbon Dioxide 24 Anion Gap 12 BUN 11 Creatinine 0.49 L Est GFR ( Amer) > 60 Glucose 159 H Calcium 9.1 Phosphorus Magnesium Total Bilirubin 0.4 AST 17 Alkaline Phosphatase 80 Ammonia Total Protein 6.9 Albumin 3.4 L Triglycerides 137 Cholesterol 127.77 LDL Cholesterol Direct 70 VLDL Cholesterol 27.0 HDL Cholesterol 30 L Amylase Lipase TSH Free T4 Urine Color DARK YELLOW Urine Appearance CLEAR Urine pH 5.0 Ur Specific Gonzales 1.054 Urine Protein 30 H Urine Glucose (UA) NEGATIVE Urine Ketones NEGATIVE Urine Blood NEGATIVE Urine Nitrite NEGATIVE Ur Leukocyte Esterase NEGATIVE Urine WBC (Auto) 1 Urine RBC (Auto) 3 02/06/20 04:06 WBC 11.0 H RBC 4.46 Hgb 12.0 Hct 35.9 L MCV 81 MCH 26.8 L MCHC 33.3 RDW 17.2 H Plt Count 237 Seg Neutrophils % Sodium Potassium Chloride Carbon Dioxide Anion Gap BUN Creatinine Est GFR ( Amer) Glucose Calcium Phosphorus Magnesium Total Bilirubin AST Alkaline Phosphatase Ammonia Total Protein Albumin Triglycerides Cholesterol LDL Cholesterol Direct VLDL Cholesterol HDL Cholesterol Amylase Lipase TSH Free T4 Urine Color Urine Appearance Urine pH Ur Specific Gonzales Urine Protein Urine Glucose (UA) Urine Ketones Urine Blood Urine Nitrite Ur Leukocyte Esterase Urine WBC (Auto) Urine RBC (Auto) 02/05/20 02/05/20 02/05/20 13:34 13:34 15:49 Creatine Kinase 46 CK-MB (CK-2) < 0.22 Troponin I < 0.012 < 0.012 02/05/20 02/05/20 02/06/20 22:30 22:30 04:06 Creatine Kinase 28 L 28 L CK-MB (CK-2) < 0.22 Troponin I < 0.012 02/06/20 02/06/20 02/06/20 04:06 09:58 09:58 Creatine Kinase 23 L CK-MB (CK-2) < 0.22 < 0.22 Troponin I < 0.012 < 0.012 Impressions: Chest X-Ray 02/05/20 00:00 IMPRESSION: Right lower lobe airspace disease consistent with pneumonia. Stable mild cardiomegaly. Head CT 02/05/20 00:00 IMPRESSION: 1. Large area of encephalomalacia and gliosis consistent with prior right frontoparietal infarct, stable. No evidence of acute intracranial hemorrhage, mass, mass effect, or evidence of acute territorial infarct. . 2. Right frontoparietal craniotomy stable. EVIDENCE OF ACUTE STROKE: NO. Chest/Abdomen CTA 02/05/20 15:59 IMPRESSION: 1. Extensive right pulmonary artery emboli. There are CT findings of right heart strain. 2. Enlarged main pulmonary artery which can be seen with pulmonary arterial hypertension. 3. Right lower lobe patchy areas of consolidation which may represent infectious/inflammatory process or pulmonary infarct. Small right pleural effusion. Assessment & Plan - Diagnosis (1) Pulmonary embolism Qualifiers: Pulmonary embolism type: other Chronicity: acute Acute cor pulmonale presence: with acute cor pulmonale Qualified Code(s): I26.09 - Other pulmonary embolism with acute cor pulmonale Is this a current diagnosis for this admission?: Yes Plan: She will continue intravenous heparin for 7 days, this will coincide with the 7- day duration for the loading dose of Eliquis, she will be transitioned to p.o. Eliquis lifelong (2) Paroxysmal atrial fibrillation Is this a current diagnosis for this admission?: Yes Plan: Presently rate controlled (3) S/P craniotomy Is this a current diagnosis for this admission?: Yes - Time Time Spent with patient: 25-34 minutes Level of Care: IMCU Medications reviewed and adjusted accordingly: Yes Anticipated discharge: Home Anticipated DC Timeframe: Other - 7 days
[2020-02-06] MEDS ORDERED: SENNOSIDES/DOCUSATE 8.6-50 MG 1 EACH TABLET PO PRN (19:56)
[2020-02-06] MEDS ORDERED: ALBUTEROL SULFATE HFA (90 MCG/PUFF) 8 GM MDI IH PRN (19:56)
[2020-02-06] MEDS ORDERED: (PENDING PHARMACY ID) (Pravastatin Sodium [Pravastatin Sodium] 40 MG Tablet) PO SCH (22:00)
[2020-02-06] MEDS: SUCRALFATE 1 GM TABLET PO SCH (22:00)
[2020-02-06] MEDS: MONTELUKAST SODIUM 10 MG TABLET PO SCH (22:01)
[2020-02-06] MEDS: DIGOXIN 0.125 MG TABLET PO SCH (22:01)
[2020-02-06] MEDS: METOPROLOL TARTRATE 50 MG TABLET PO SCH (22:02)
[2020-02-06] MEDS: PANTOPRAZOLE SODIUM 40 MG TABLET.DR PO SCH (22:02)
[2020-02-06] MEDS: ATORVASTATIN CALCIUM 10 MG TABLET PO SCH (22:02)
[2020-02-06] MEDS ORDERED: DEXTROSE 40% GEL 15 GM TUBE X 2 PO PRN (23:30)
[2020-02-06] MEDS ORDERED: DEXTROSE 40% GEL 15 GM TUBE PO PRN (23:30)
[2020-02-06] MEDS ORDERED: DEXTROSE 50%-WATER SYRINGE 12.5 GM/25 ML DOSE IV PRN (23:30)
[2020-02-06] MEDS ORDERED: GLUCAGON,HUMAN RECOMB 1 MG INJ IM PRN (23:30)
[2020-02-06] MEDS ORDERED: DEXTROSE 50%-WATER SYRINGE 25 GM/50 ML DOSE IV PRN (23:30)
[2020-02-06] MEDS: VENLAFAXINE HCL 75 MG CAP.SR.24H PO SCH (23:43)
[2020-02-07] MEDS: HEPARIN SODIUM,PORCINE/D5W 25,000 UNIT/250 ML RTUINJ IV PRN ×2 (07:24→20:56)
[2020-02-07] MEDS: INSULIN REG, HUMAN 100 UNIT/ML 3 ML VIAL (PYX) SUBCUT SCH ×4 (08:12→21:36)
[2020-02-07] MEDS: PANTOPRAZOLE SODIUM 40 MG TABLET.DR PO SCH (08:30)
[2020-02-07 09:33] LABS: HEMATOCRIT 37.2 % (36.0-47.0); HEMOGLOBIN 12.5 g/dL (12.0-15.5); MEAN CORPUSCULAR HEMOGLOBIN 26.7 pg (27.0-33.4); MEAN CORPUSCULAR HGB CONC 33.5 g/dL (32.0-36.0); MEAN CORPUSCULAR VOLUME 80 fl (80-97); PLATELET COUNT 275 10^3/uL (150-450); RED BLOOD COUNT 4.67 10^6/uL (3.72-5.28); RED CELL DISTRIBUTION WIDTH 17.1 % (11.5-14.0); WHITE BLOOD COUNT 9.5 10^3/uL (4.0-10.5)
[2020-02-07] MEDS: METOPROLOL TARTRATE 50 MG TABLET PO SCH ×2 (10:29→21:14)
[2020-02-07] MEDS: SUCRALFATE 1 GM TABLET PO SCH ×2 (10:29→17:30)
[2020-02-07] MEDS: VENLAFAXINE HCL 75 MG CAP.SR.24H PO SCH (10:29)
[2020-02-07] MEDS: DIGOXIN 0.125 MG TABLET PO SCH (10:29)
[2020-02-07] MEDS: POLYETHYLENE GLYCOL 3350 POWDER 17 GM/1 PACKET PO SCH ×2 (10:30→11:41)
[2020-02-07] MEDS: ACETAMINOPHEN 325 MG TABLET PO PRN ×2 (16:02→21:36)
--- NOTE | 2020-02-07 20:04 | PDOC PROGRESS REPORT ---
Subjective Date:: 02/07/20 Subjective:: Patient was admitted yesterday when she presented with massive pulmonary embolis m, presently on anticoagulation with IV heparin, stable hemodynamically 02/07/2020 Patient seen by the bedside, she, complain of headache, CT head from yesterday was negative,, she is on intravenous heparin for massive pulmonary embolism Reason For Visit: SHORTNESS OF BREATH,PULMONARY EMBOLISM ON RIGHT Physical Exam Vital Signs: Temp Pulse Resp BP Pulse Ox 97.7 F 92 16 125/78 97 02/07/20 16:18 02/07/20 16:18 02/07/20 16:18 02/07/20 16:18 02/07/20 16:18 Intake & Output 02/06/20 02/07/20 02/08/20 06:59 06:59 06:59 Intake Total 225 771 69 Output Total 400 Balance 225 371 69 Weight 109.5 kg 110.9 kg General appearance: PRESENT: no acute distress Eye exam: PRESENT: PERRLA Respiratory exam: PRESENT: clear to auscultation mey Cardiovascular exam: PRESENT: +S1, +S2 GI/Abdominal exam: PRESENT: soft Results Laboratory Results: 02/07/20 09:05 02/06/20 04:06 02/07/20 09:05 WBC 9.5 RBC 4.67 Hgb 12.5 Hct 37.2 MCV 80 MCH 26.7 L MCHC 33.5 RDW 17.1 H Plt Count 275 02/05/20 15:13 Blood Blood Culture (PCR) - Final Staphylococcus Species 02/05/20 02/05/20 02/05/20 13:34 13:34 15:49 Creatine Kinase 46 CK-MB (CK-2) < 0.22 Troponin I < 0.012 < 0.012 02/05/20 02/05/20 02/06/20 22:30 22:30 04:06 Creatine Kinase 28 L 28 L CK-MB (CK-2) < 0.22 Troponin I < 0.012 02/06/20 02/06/20 02/06/20 04:06 09:58 09:58 Creatine Kinase 23 L CK-MB (CK-2) < 0.22 < 0.22 Troponin I < 0.012 < 0.012 Impressions: Chest X-Ray 02/05/20 00:00 IMPRESSION: Right lower lobe airspace disease consistent with pneumonia. Stable mild cardiomegaly. Head CT 02/05/20 00:00 IMPRESSION: 1. Large area of encephalomalacia and gliosis consistent with prior right frontoparietal infarct, stable. No evidence of acute intracranial hemorrhage, mass, mass effect, or evidence of acute territorial infarct. . 2. Right frontoparietal craniotomy stable. EVIDENCE OF ACUTE STROKE: NO. Chest/Abdomen CTA 02/05/20 15:59 IMPRESSION: 1. Extensive right pulmonary artery emboli. There are CT findings of right heart strain. 2. Enlarged main pulmonary artery which can be seen with pulmonary arterial hypertension. 3. Right lower lobe patchy areas of consolidation which may represent i nfectious/inflammatory process or pulmonary infarct. Small right pleural effusion. Assessment & Plan - Diagnosis (1) Pulmonary embolism Qualifiers: Pulmonary embolism type: other Chronicity: acute Acute cor pulmonale presence: with acute cor pulmonale Qualified Code(s): I26.09 - Other pulmonary embolism with acute cor pulmonale Is this a current diagnosis for this admission?: Yes Plan: She will continue intravenous heparin for 7 days, this will coincide with the 7- day duration for the loading dose of Eliquis, she will be transitioned to p.o. Eliquis lifelong (2) Paroxysmal atrial fibrillation Is this a current diagnosis for this admission?: Yes Plan: Presently rate controlled (3) S/P craniotomy Is this a current diagnosis for this admission?: Yes - Time Time Spent with patient: 25-34 minutes Level of Care: IMCU Medications reviewed and adjusted accordingly: Yes Anticipated discharge: Home Anticipated DC Timeframe: Other - 7 days
[2020-02-07] MEDS: MONTELUKAST SODIUM 10 MG TABLET PO SCH (21:14)
[2020-02-07] MEDS: ATORVASTATIN CALCIUM 10 MG TABLET PO SCH (21:14)
[2020-02-08 06:51] LABS: HEMATOCRIT 35.5 % (36.0-47.0); HEMOGLOBIN 11.9 g/dL (12.0-15.5); MEAN CORPUSCULAR HEMOGLOBIN 26.7 pg (27.0-33.4); MEAN CORPUSCULAR HGB CONC 33.6 g/dL (32.0-36.0); MEAN CORPUSCULAR VOLUME 79 fl (80-97); PLATELET COUNT 250 10^3/uL (150-450); RED BLOOD COUNT 4.48 10^6/uL (3.72-5.28); RED CELL DISTRIBUTION WIDTH 17.2 % (11.5-14.0); WHITE BLOOD COUNT 8.7 10^3/uL (4.0-10.5)
[2020-02-08] MEDS: SUCRALFATE 1 GM TABLET PO SCH ×2 (13:50→17:11)
[2020-02-08] MEDS: DIGOXIN 0.125 MG TABLET PO SCH (13:50)
[2020-02-08] MEDS: VENLAFAXINE HCL 75 MG CAP.SR.24H PO SCH (13:50)
[2020-02-08] MEDS: METOPROLOL TARTRATE 50 MG TABLET PO SCH ×2 (13:50→23:00)
[2020-02-08] MEDS: POLYETHYLENE GLYCOL 3350 POWDER 17 GM/1 PACKET PO SCH (13:51)
[2020-02-08] MEDS: HEPARIN SODIUM,PORCINE/D5W 25,000 UNIT/250 ML RTUINJ IV PRN (13:52)
[2020-02-08] MEDS: PANTOPRAZOLE SODIUM 40 MG TABLET.DR PO SCH (13:55)
[2020-02-08] MEDS: INSULIN REG, HUMAN 100 UNIT/ML 3 ML VIAL (PYX) SUBCUT SCH ×4 (13:59→23:00)
--- NOTE | 2020-02-08 17:44 | PDOC PROGRESS REPORT ---
Subjective Date:: 02/08/20 Subjective:: Patient was admitted yesterday when she presented with massive pulmonary embolis m, presently on anticoagulation with IV heparin, stable hemodynamically 02/07/2020 Patient seen by the bedside, she, complain of headache, CT head from yesterday was negative,, she is on intravenous heparin for massive pulmonary embolism 02/08/2020 Patient was seen by the bedside She tends to keep food in her mouth for prolonged period of time,She will continue IV heparin for a total of 7 days Reason For Visit: SHORTNESS OF BREATH,PULMONARY EMBOLISM ON RIGHT Physical Exam Vital Signs: Temp Pulse Resp BP Pulse Ox 98.0 F 84 18 138/82 H 92 02/08/20 07:54 02/08/20 10:26 02/08/20 10:26 02/08/20 07:54 02/08/20 10:26 Intake & Output 02/07/20 02/08/20 02/09/20 06:59 06:59 06:59 Intake Total 771 1151 368 Output Total 400 Balance 371 1151 368 Weight 110.9 kg 108.7 kg General appearance: PRESENT: no acute distress Eye exam: PRESENT: PERRLA Respiratory exam: PRESENT: clear to auscultation mey Cardiovascular exam: PRESENT: +S1, +S2 GI/Abdominal exam: PRESENT: soft Neurological exam: PRESENT: alert Results Laboratory Results: 02/08/20 06:09 02/06/20 04:06 02/08/20 06:09 WBC 8.7 RBC 4.48 Hgb 11.9 L Hct 35.5 L MCV 79 L MCH 26.7 L MCHC 33.6 RDW 17.2 H Plt Count 250 02/05/20 15:13 Blood Blood Culture (PCR) - Final Staphylococcus Species 02/05/20 15:13 Blood Blood Culture - Final Staphylococcus Hominis 02/05/20 02/05/20 02/05/20 13:34 13:34 15:49 Creatine Kinase 46 CK-MB (CK-2) < 0.22 Troponin I < 0.012 < 0.012 02/05/20 02/05/20 02/06/20 22:30 22:30 04:06 Creatine Kinase 28 L 28 L CK-MB (CK-2) < 0.22 Troponin I < 0.012 02/06/20 02/06/20 02/06/20 04:06 09:58 09:58 Creatine Kinase 23 L CK-MB (CK-2) < 0.22 < 0.22 Troponin I < 0.012 < 0.012 Impressions: Chest X-Ray 02/05/20 00:00 IMPRESSION: Right lower lobe airspace disease consistent with pneumonia. Stable mild cardiomegaly. Head CT 02/05/20 00:00 IMPRESSION: 1. Large area of encephalomalacia and gliosis consistent with prior right frontoparietal infarct, stable. No evidence of acute intracranial hemorrhage, mass, mass effect, or evidence of acute territorial infarct. . 2. Right frontoparietal craniotomy stable. EVIDENCE OF ACUTE STROKE: NO. Chest/Abdomen CTA 02/05/20 15:59 IMPRESSION: 1. Extensive right pulmonary artery emboli. There are CT findings of right heart strain. 2. Enlarged main pulmonary artery which can be seen with pulmonary arterial hypertension. 3. Right lower lobe patchy areas of consolidation which may represent infectious/inflammatory process or pulmonary infarct. Small right pleural effusion. Assessment & Plan - Diagnosis (1) Pulmonary embolism Qualifiers: Pulmonary embolism type: other Chronicity: acute Acute cor pulmonale presence: with acute cor pulmonale Qualified Code(s): I26.09 - Other pulmonary embolism with acute cor pulmonale Is this a current diagnosis for this admission?: Yes Plan: She will continue intravenous heparin for 7 days, this will coincide with the 7- day duration for the loading dose of Eliquis, she will be transitioned to p.o. Eliquis lifelong (2) Paroxysmal atrial fibrillation Is this a current diagnosis for this admission?: Yes Plan: Presently rate controlled (3) S/P craniotomy Is this a current diagnosis for this admission?: Yes (4) T2DM (type 2 diabetes mellitus) Qualifiers: Diabetes mellitus prison insulin use: without prison use Diabetes mellitus complication status: with neurologic complications Diabetes mellitus complication detail: with polyneuropathy Qualified Code(s): E11.42 - Type 2 diabetes mellitus with diabetic polyneuropathy Is this a current diagnosis for this admission?: Yes - Time Time Spent with patient: 25-34 minutes Level of Care: IMCU Medications reviewed and adjusted accordingly: Yes Anticipated discharge: Home
[2020-02-08] MEDS: ACETAMINOPHEN 325 MG TABLET PO PRN (20:34)
[2020-02-08] MEDS: ATORVASTATIN CALCIUM 10 MG TABLET PO SCH (23:00)
[2020-02-08] MEDS: MONTELUKAST SODIUM 10 MG TABLET PO SCH (23:00)
[2020-02-09] MEDS: HEPARIN SODIUM,PORCINE/D5W 25,000 UNIT/250 ML RTUINJ IV PRN ×2 (02:16→15:06)
[2020-02-09 04:08] LABS: APPEARANCE,URINE CLEAR; BILIRUBIN,URINE NEGATIVE (NEGATIVE); CALCIUM OXALATE CRYSTALS,URINE FEW /HPF; COLOR,URINE YELLOW; GLUCOSE, URINE NEGATIVE (NEGATIVE); KETONES,URINE NEGATIVE (NEGATIVE); LEUKOCYTE ESTERASE,URINE NEGATIVE (NEGATIVE); NITRITE,URINE NEGATIVE (NEGATIVE); PROTEIN,URINE NEGATIVE (NEGATIVE); URINE SPECIFIC GRAVITY 1.014; UROBILINOGEN,URINE NEGATIVE mg/dL (<2.0)
[2020-02-09 07:14] LABS: HEMATOCRIT 36.1 % (36.0-47.0); HEMOGLOBIN 12.3 g/dL (12.0-15.5); MEAN CORPUSCULAR HEMOGLOBIN 26.8 pg (27.0-33.4); MEAN CORPUSCULAR HGB CONC 33.9 g/dL (32.0-36.0); MEAN CORPUSCULAR VOLUME 79 fl (80-97); PLATELET COUNT 260 10^3/uL (150-450); RED BLOOD COUNT 4.57 10^6/uL (3.72-5.28); RED CELL DISTRIBUTION WIDTH 17.1 % (11.5-14.0); WHITE BLOOD COUNT 9.2 10^3/uL (4.0-10.5)
[2020-02-09] MEDS: INSULIN REG, HUMAN 100 UNIT/ML 3 ML VIAL (PYX) SUBCUT SCH ×4 (08:10→22:02)
[2020-02-09] MEDS: PANTOPRAZOLE SODIUM 40 MG TABLET.DR PO SCH (08:14)
[2020-02-09] MEDS: ACETAMINOPHEN 325 MG TABLET PO PRN ×2 (08:14→18:25)
[2020-02-09] MEDS: METOPROLOL TARTRATE 50 MG TABLET PO SCH ×2 (09:58→22:04)
[2020-02-09] MEDS: VENLAFAXINE HCL 75 MG CAP.SR.24H PO SCH (09:59)
[2020-02-09] MEDS: DIGOXIN 0.125 MG TABLET PO SCH (09:59)
[2020-02-09] MEDS: SUCRALFATE 1 GM TABLET PO SCH ×2 (09:59→17:35)
[2020-02-09] MEDS: POLYETHYLENE GLYCOL 3350 POWDER 17 GM/1 PACKET PO SCH (09:59)
--- NOTE | 2020-02-09 18:13 | PDOC PROGRESS REPORT ---
Subjective Date:: 02/09/20 Subjective:: Patient was admitted yesterday when she presented with massive pulmonary embolis m, presently on anticoagulation with IV heparin, stable hemodynamically 02/07/2020 Patient seen by the bedside, she, complain of headache, CT head from yesterday was negative,, she is on intravenous heparin for massive pulmonary embolism 02/08/2020 Patient was seen by the bedside She tends to keep food in her mouth for prolonged period of time,She will continue IV heparin for a total of 7 days 02/09/2020 Patient seen by the bedside, she continues on the IV heparin for a total of 7 days and then transition to p.o. Eliquis lifelong Reason For Visit: SHORTNESS OF BREATH,PULMONARY EMBOLISM ON RIGHT Physical Exam Vital Signs: Temp Pulse Resp BP Pulse Ox 98.0 F 86 19 111/87 H 95 02/09/20 12:34 02/09/20 14:00 02/09/20 12:34 02/09/20 12:34 02/09/20 12:34 Intake & Output 02/08/20 02/09/20 02/10/20 06:59 06:59 06:59 Intake Total 1151 839 719 Balance 1151 839 719 Weight 108.7 kg 110.3 kg General appearance: PRESENT: no acute distress Eye exam: PRESENT: PERRLA Respiratory exam: PRESENT: clear to auscultation mey Cardiovascular exam: PRESENT: +S1, +S2 GI/Abdominal exam: PRESENT: soft Results Laboratory Results: 02/09/20 06:33 02/06/20 04:06 02/08/20 02/09/20 17:00 06:33 WBC 9.2 RBC 4.57 Hgb 12.3 Hct 36.1 MCV 79 L MCH 26.8 L MCHC 33.9 RDW 17.1 H Plt Count 260 Urine Color YELLOW Urine Appearance CLEAR Urine pH 6.0 Ur Specific [place] 1.014 Urine Protein NEGATIVE Urine Glucose (UA) NEGATIVE Urine Ketones NEGATIVE Urine Blood SMALL H Urine Nitrite NEGATIVE Ur Leukocyte Esterase NEGATIVE Urine WBC (Auto) 2 Urine RBC (Auto) 1 02/05/20 02/05/20 02/05/20 13:34 13:34 15:49 Creatine Kinase 46 CK-MB (CK-2) < 0.22 Troponin I < 0.012 < 0.012 02/05/20 02/05/2020 22:30 22:30 04:06 Creatine Kinase 28 L 28 L CK-MB (CK-2) < 0.22 Troponin I < 0.012 02/06/20 02/06/20 02/06/20 04:06 09:58 09:58 Creatine Kinase 23 L CK-MB (CK-2) < 0.22 < 0.22 Troponin I < 0.012 < 0.012 Impressions: Chest X-Ray 02/05/20 00:00 IMPRESSION: Right lower lobe airspace disease consistent with pneumonia. Stable mild cardiomegaly. Head CT 02/05/20 00:00 IMPRESSION: 1. Large area of encephalomalacia and gliosis consistent with prior right frontoparietal infarct, stable. No evidence of acute intracranial hemorrhage, mass, mass effect, or evidence of acute territorial infarct. . 2. Right frontoparietal craniotomy stable. EVIDENCE OF ACUTE STROKE: NO. Chest/Abdomen CTA 02/05/20 15:59 IMPRESSION: 1. Extensive right pulmonary artery emboli. There are CT findings of right heart strain. 2. Enlarged main pulmonary artery which can be seen with pulmonary arterial hypertension. 3. Right lower lobe patchy areas of consolidation which may represent infectious/inflammatory process or pulmonary infarct. Small right pleural effusion. Assessment & Plan - Diagnosis (1) Pulmonary embolism Qualifiers: Pulmonary embolism type: other Chronicity: acute Acute cor pulmonale presence: with acute cor pulmonale Qualified Code(s): I26.09 - Other pulmonary embolism with acute cor pulmonale Is this a current diagnosis for this admission?: Yes Plan: She will continue intravenous heparin for 7 days, this will coincide with the 7- day duration for the loading dose of Eliquis, she will be transitioned to p.o. Eliquis lifelong (2) Paroxysmal atrial fibrillation Is this a current diagnosis for this admission?: Yes Plan: Presently rate controlled (3) S/P craniotomy Is this a current diagnosis for this admission?: Yes (4) T2DM (type 2 diabetes mellitus) Qualifiers: Diabetes mellitus jail insulin use: without emt intermediate use Diabetes mellitus complication status: with neurologic complications Diabetes mellitus complication detail: with polyneuropathy Qualified Code(s): E11.42 - Type 2 diabetes mellitus with diabetic polyneuropathy Is this a current diagnosis for this admission?: Yes - Time Time Spent with patient: 25-34 minutes Level of Care: IMCU Medications reviewed and adjusted accordingly: Yes Anticipated discharge: Home Anticipated DC Timeframe: Other
[2020-02-09] MEDS: ATORVASTATIN CALCIUM 10 MG TABLET PO SCH (22:03)
[2020-02-09] MEDS: MONTELUKAST SODIUM 10 MG TABLET PO SCH (22:03)
[2020-02-10] MEDS: HEPARIN SODIUM,PORCINE/D5W 25,000 UNIT/250 ML RTUINJ IV PRN ×2 (03:39→17:20)
[2020-02-10] MEDS: INSULIN REG, HUMAN 100 UNIT/ML 3 ML VIAL (PYX) SUBCUT SCH ×4 (08:05→21:10)
[2020-02-10] MEDS: PANTOPRAZOLE SODIUM 40 MG TABLET.DR PO SCH (08:13)
[2020-02-10] MEDS: SUCRALFATE 1 GM TABLET PO SCH ×2 (09:43→17:20)
[2020-02-10] MEDS: DIGOXIN 0.125 MG TABLET PO SCH (09:43)
[2020-02-10] MEDS: VENLAFAXINE HCL 75 MG CAP.SR.24H PO SCH (09:43)
[2020-02-10] MEDS: METOPROLOL TARTRATE 50 MG TABLET PO SCH ×2 (09:44→21:43)
[2020-02-10] MEDS: POLYETHYLENE GLYCOL 3350 POWDER 17 GM/1 PACKET PO SCH ×2 (10:05→15:31)
[2020-02-10] MEDS: ACETAMINOPHEN 325 MG TABLET PO PRN (17:27)
--- NOTE | 2020-02-10 19:52 | PDOC PROGRESS REPORT ---
Subjective Date:: 02/10/20 Subjective:: Patient was admitted yesterday when she presented with massive pulmonary embolis m, presently on anticoagulation with IV heparin, stable hemodynamically 02/07/2020 Patient seen by the bedside, she, complain of headache, CT head from yesterday was negative,, she is on intravenous heparin for massive pulmonary embolism 02/08/2020 Patient was seen by the bedside She tends to keep food in her mouth for prolonged period of time,She will continue IV heparin for a total of 7 days 02/09/2020 Patient seen by the bedside, she continues on the IV heparin for a total of 7 days and then transition to p.o. Eliquis lifelong 02/10/2020 Patient seen by the bedside, no new complaints she will continue IV heparin for a total of 7 days, today is day #5, she has 2 days more left before t ransitioning to p.o. Eliquis Reason For Visit: SHORTNESS OF BREATH,PULMONARY EMBOLISM ON RIGHT Physical Exam Vital Signs: Temp Pulse Resp BP Pulse Ox 98.9 F 89 20 133/67 H 91 L 02/10/20 15:54 02/10/20 15:54 02/10/20 15:54 02/10/20 15:54 02/10/20 15:54 Intake & Output 02/09/20 02/10/20 02/11/20 06:59 06:59 06:59 Intake Total 839 1392 1160 Output Total 650 1300 Balance 839 742 -140 Weight 110.3 kg 111.1 kg 111.1 kg General appearance: PRESENT: no acute distress Eye exam: PRESENT: PERRLA Respiratory exam: PRESENT: clear to auscultation mey Cardiovascular exam: PRESENT: +S1, +S2 GI/Abdominal exam: PRESENT: soft Neurological exam: PRESENT: alert Results Laboratory Results: 02/09/20 06:33 02/06/20 04:06 02/05/20 13:02 Blood Blood Culture - Final NO GROWTH IN 5 DAYS 02/05/20 02/05/20 02/05/20 13:34 13:34 15:49 Creatine Kinase 46 CK-MB (CK-2) < 0.22 Troponin I < 0.012 < 0.012 02/05/20 02/05/20 02/06/20 22:30 22:30 04:06 Creatine Kinase 28 L 28 L CK-MB (CK-2) < 0.22 Troponin I < 0.012 02/06/20 02/06/20 02/06/20 04:06 09:58 09:58 Creatine Kinase 23 L CK-MB (CK-2) < 0.22 < 0.22 Troponin I < 0.012 < 0.012 Impressions: Chest X-Ray 02/05/20 00:00 IMPRESSION: Right lower lobe airspace disease consistent with pneumonia. Stable mild cardiomegaly. Head CT 02/05/20 00:00 IMPRESSION: 1. Large area of encephalomalacia and gliosis consistent with prior right frontoparietal infarct, stable. No evidence of acute intracranial hemorrhage, mass, mass effect, or evidence of acute territorial infarct. . 2. Right frontoparietal craniotomy stable. EVIDENCE OF ACUTE STROKE: NO. Chest/Abdomen CTA 02/05/20 15:59 IMPRESSION: 1. Extensive right pulmonary artery emboli. There are CT findings of right heart strain. 2. Enlarged main pulmonary artery which can be seen with pulmonary arterial hypertension. 3. Right lower lobe patchy areas of consolidation which may represent infectiou s/inflammatory process or pulmonary infarct. Small right pleural effusion. Assessment & Plan - Diagnosis (1) Pulmonary embolism Qualifiers: Pulmonary embolism type: other Chronicity: acute Acute cor pulmonale presence: with acute cor pulmonale Qualified Code(s): I26.09 - Other pulmonary embolism with acute cor pulmonale Is this a current diagnosis for this admission?: Yes Plan: She will continue intravenous heparin for 7 days, this will coincide with the 7- day duration for the loading dose of Eliquis, she will be transitioned to p.o. Eliquis lifelong (2) Paroxysmal atrial fibrillation Is this a current diagnosis for this admission?: Yes Plan: Presently rate controlled (3) S/P craniotomy Is this a current diagnosis for this admission?: Yes (4) T2DM (type 2 diabetes mellitus) Qualifiers: Diabetes mellitus intermodal customer service insulin use: without snf use Diabetes mellitus complication status: with neurologic complications Diabetes mellitus complication detail: with polyneuropathy Qualified Code(s): E11.42 - Type 2 diabetes mellitus with diabetic polyneuropathy Is this a current diagnosis for this admission?: Yes - Time Time Spent with patient: 35 or more minutes Level of Care: IMCU Medications reviewed and adjusted accordingly: Yes Anticipated discharge: Home Anticipated DC Timeframe: within 72 hours
[2020-02-10] MEDS: ATORVASTATIN CALCIUM 10 MG TABLET PO SCH (21:43)
[2020-02-10] MEDS: MONTELUKAST SODIUM 10 MG TABLET PO SCH (21:43)
[2020-02-11] MEDS: HEPARIN SODIUM,PORCINE/D5W 25,000 UNIT/250 ML RTUINJ IV PRN ×2 (05:53→18:33)
[2020-02-11] MEDS: PANTOPRAZOLE SODIUM 40 MG TABLET.DR PO SCH (08:45)
[2020-02-11] MEDS: ACETAMINOPHEN 325 MG TABLET PO PRN ×2 (09:41→15:50)
[2020-02-11] MEDS: SUCRALFATE 1 GM TABLET PO SCH ×2 (09:42→17:16)
[2020-02-11] MEDS: VENLAFAXINE HCL 75 MG CAP.SR.24H PO SCH (09:42)
[2020-02-11] MEDS: METOPROLOL TARTRATE 50 MG TABLET PO SCH ×2 (09:42→21:21)
[2020-02-11] MEDS: DIGOXIN 0.125 MG TABLET PO SCH (09:42)
[2020-02-11] MEDS: INSULIN REG, HUMAN 100 UNIT/ML 3 ML VIAL (PYX) SUBCUT SCH ×4 (09:43→21:19)
[2020-02-11] MEDS: POLYETHYLENE GLYCOL 3350 POWDER 17 GM/1 PACKET PO SCH (09:44)
[2020-02-11] MEDS ORDERED: ERGOCALCIFEROL (VITAMIN D2) 50000 UNIT (1.25 MG) CAPSULE PO SCH (10:00)
--- NOTE | 2020-02-11 18:54 | PDOC PROGRESS REPORT ---
Subjective Date:: 02/11/20 Subjective:: Patient was admitted yesterday when she presented with massive pulmonary embolis m, presently on anticoagulation with IV heparin, stable hemodynamically 02/07/2020 Patient seen by the bedside, she, complain of headache, CT head from yesterday was negative,, she is on intravenous heparin for massive pulmonary embolism 02/08/2020 Patient was seen by the bedside She tends to keep food in her mouth for prolonged period of time,She will continue IV heparin for a total of 7 days 02/09/2020 Patient seen by the bedside, she continues on the IV heparin for a total of 7 days and then transition to p.o. Eliquis lifelong 02/10/2020 Patient seen by the bedside, no new complaints she will continue IV heparin for a total of 7 days, today is day #5, she has 2 days more left before t ransitioning to p.o. Eliquis 02/11/2020 Patient seen by the bedside, she continues to require IV heparin Reason For Visit: SHORTNESS OF BREATH,PULMONARY EMBOLISM ON RIGHT Physical Exam Vital Signs: Temp Pulse Resp BP Pulse Ox 97.3 F 91 18 158/96 H 94 02/11/20 15:54 02/11/20 15:54 02/11/20 15:54 02/11/20 15:54 02/11/20 15:54 Intake & Output 02/10/20 02/11/20 02/12/20 06:59 06:59 06:59 Intake Total 1392 2135 716 Output Total 650 2200 450 Balance 742 -65 266 Weight 111.1 kg 111 kg General appearance: PRESENT: no acute distress Eye exam: PRESENT: PERRLA Respiratory exam: PRESENT: clear to auscultation mey Cardiovascular exam: PRESENT: +S1, +S2 GI/Abdominal exam: PRESENT: soft Neurological exam: PRESENT: alert Results Laboratory Results: 02/09/20 06:33 02/06/20 04:06 02/05/20 13:02 Blood Blood Culture - Final NO GROWTH IN 5 DAYS 02/05/20 02/05/20 02/05/20 13:34 13:34 15:49 Creatine Kinase 46 CK-MB (CK-2) < 0.22 Troponin I < 0.012 < 0.012 02/05/20 02/05/20 02/06/20 22:30 22:30 04:06 Creatine Kinase 28 L 28 L CK-MB (CK-2) < 0.22 Troponin I < 0.012 02/06/20 02/06/20 02/06/20 04:06 09:58 09:58 Creatine Kinase 23 L CK-MB (CK-2) < 0.22 < 0.22 Troponin I < 0.012 < 0.012 Impressions: Chest X-Ray 02/05/20 00:00 IMPRESSION: Right lower lobe airspace disease consistent with pneumonia. Stable mild cardiomegaly. Head CT 02/05/20 00:00 IMPRESSION: 1. Large area of encephalomalacia and gliosis consistent with prior right frontoparietal infarct, stable. No evidence of acute intracranial hemorrhage, mass, mass effect, or evidence of acute territorial infarct. . 2. Right frontoparietal craniotomy stable. EVIDENCE OF ACUTE STROKE: NO. Chest/Abdomen CTA 02/05/20 15:59 IMPRESSION: 1. Extensive right pulmonary artery emboli. There are CT findings of right heart strain. 2. Enlarged main pulmonary artery which can be seen with pulmonary arterial hypertension. 3. Right lower lobe patchy areas of consolidation which may represent infectious/inflammatory process or pulmonary infarct. Small right pleural effusion. Assessment & Plan - Diagnosis (1) Pulmonary embolism Qualifiers: Pulmonary embolism type: other Chronicity: acute Acute cor pulmonale presence: with acute cor pulmonale Qualified Code(s): I26.09 - Other pulmonary embolism with acute cor pulmonale Is this a current diagnosis for this admission?: Yes Plan: She will continue intravenous heparin for 7 days, this will coincide with the 7- day duration for the loading dose of Eliquis, she will be transitioned to p.o. Eliquis lifelong (2) Paroxysmal atrial fibrillation Is this a current diagnosis for this admission?: Yes Plan: Presently rate controlled (3) S/P craniotomy Is this a current diagnosis for this admission?: Yes (4) T2DM (type 2 diabetes mellitus) Qualifiers: Diabetes mellitus usp insulin use: without assistant terminal manager use Diabetes mellitus complication status: with neurologic complications Diabetes mellitus complication detail: with polyneuropathy Qualified Code(s): E11.42 - Type 2 diabetes mellitus with diabetic polyneuropathy Is this a current diagnosis for this admission?: Yes - Time Time Spent with patient: 25-34 minutes Level of Care: IMCU Medications reviewed and adjusted accordingly: Yes Anticipated discharge: Home Anticipated DC Timeframe: within 48 hours
[2020-02-11] MEDS: ATORVASTATIN CALCIUM 10 MG TABLET PO SCH (21:22)
[2020-02-11] MEDS: MONTELUKAST SODIUM 10 MG TABLET PO SCH (21:23)
[2020-02-12] MEDS: ACETAMINOPHEN 325 MG TABLET PO PRN ×2 (03:18→17:51)
[2020-02-12 07:12] LABS: HEMATOCRIT 35.3 % (36.0-47.0); HEMOGLOBIN 11.8 g/dL (12.0-15.5); MEAN CORPUSCULAR HEMOGLOBIN 26.5 pg (27.0-33.4); MEAN CORPUSCULAR HGB CONC 33.4 g/dL (32.0-36.0); MEAN CORPUSCULAR VOLUME 80 fl (80-97); PLATELET COUNT 300 10^3/uL (150-450); RED BLOOD COUNT 4.45 10^6/uL (3.72-5.28); RED CELL DISTRIBUTION WIDTH 17.5 % (11.5-14.0)
[2020-02-12] MEDS: INSULIN REG, HUMAN 100 UNIT/ML 3 ML VIAL (PYX) SUBCUT SCH ×4 (08:21→21:36)
[2020-02-12] MEDS: PANTOPRAZOLE SODIUM 40 MG TABLET.DR PO SCH (09:24)
[2020-02-12] MEDS: METOPROLOL TARTRATE 50 MG TABLET PO SCH ×2 (09:24→21:36)
[2020-02-12] MEDS: VENLAFAXINE HCL 75 MG CAP.SR.24H PO SCH (09:24)
[2020-02-12] MEDS: SUCRALFATE 1 GM TABLET PO SCH ×2 (09:25→17:48)
[2020-02-12] MEDS: POLYETHYLENE GLYCOL 3350 POWDER 17 GM/1 PACKET PO SCH (09:25)
[2020-02-12] MEDS: DIGOXIN 0.125 MG TABLET PO SCH (12:21)
[2020-02-12] MEDS: ATORVASTATIN CALCIUM 10 MG TABLET PO SCH (21:36)
[2020-02-12] MEDS: MONTELUKAST SODIUM 10 MG TABLET PO SCH (21:36)
[2020-02-12] MEDS: HEPARIN SODIUM,PORCINE/D5W 25,000 UNIT/250 ML RTUINJ IV PRN (22:18)
--- NOTE | 2020-02-12 22:18 | PDOC PROGRESS REPORT ---
Subjective Date:: 02/12/20 Subjective:: Patient was admitted yesterday when she presented with massive pulmonary embolis m, presently on anticoagulation with IV heparin, stable hemodynamically 02/07/2020 Patient seen by the bedside, she, complain of headache, CT head from yesterday was negative,, she is on intravenous heparin for massive pulmonary embolism 02/08/2020 Patient was seen by the bedside She tends to keep food in her mouth for prolonged period of time,She will continue IV heparin for a total of 7 days 02/09/2020 Patient seen by the bedside, she continues on the IV heparin for a total of 7 days and then transition to p.o. Eliquis lifelong 02/10/2020 Patient seen by the bedside, no new complaints she will continue IV heparin for a total of 7 days, today is day #5, she has 2 days more left before t ransitioning to p.o. Eliquis 02/11/2020 Patient seen by the bedside, she continues to require IV heparin 02/12/2020 Patient seen by the bedside no new complaints Reason For Visit: SHORTNESS OF BREATH,PULMONARY EMBOLISM ON RIGHT Physical Exam Vital Signs: Temp Pulse Resp BP Pulse Ox 98.5 F 88 15 145/65 H 90 L 02/12/20 19:18 02/12/20 19:18 02/12/20 19:18 02/12/20 19:18 02/12/20 19:18 Intake & Output 02/11/20 02/12/20 02/13/20 06:59 06:59 06:59 Intake Total 2135 1438 541 Output Total 2200 1600 601 Balance -65 -162 -60 Weight 111 kg 110.6 kg General appearance: PRESENT: no acute distress Eye exam: PRESENT: PERRLA Respiratory exam: PRESENT: clear to auscultation mey Cardiovascular exam: PRESENT: +S1, +S2 GI/Abdominal exam: PRESENT: soft Neurological exam: PRESENT: alert Results Laboratory Results: 02/12/20 06:28 02/06/20 04:06 02/12/20 06:28 WBC 9.0 RBC 4.45 Hgb 11.8 L Hct 35.3 L MCV 80 MCH 26.5 L MCHC 33.4 RDW 17.5 H Plt Count 300 02/05/20 02/05/20 02/05/20 13:34 13:34 15:49 Creatine Kinase 46 CK-MB (CK-2) < 0.22 Troponin I < 0.012 < 0.012 02/05/20 02/05/20 02/06/20 22:30 22:30 04:06 Creatine Kinase 28 L 28 L CK-MB (CK-2) < 0.22 Troponin I < 0.012 02/06/20 02/06/20 02/06/20 04:06 09:58 09:58 Creatine Kinase 23 L CK-MB (CK-2) < 0.22 < 0.22 Troponin I < 0.012 < 0.012 Impressions: Chest X-Ray 02/05/20 00:00 IMPRESSION: Right lower lobe airspace disease consistent with pneumonia. Stable mild cardiomegaly. Head CT 02/05/20 00:00 IMPRESSION: 1. Large area of encephalomalacia and gliosis consistent with prior right frontoparietal infarct, stable. No evidence of acute intracranial hemorrhage, mass, mass effect, or evidence of acute territorial infarct. . 2. Right frontoparietal craniotomy stable. EVIDENCE OF ACUTE STROKE: NO. Chest/Abdomen CTA 02/05/20 15:59 IMPRESSION: 1. Extensive right pulmonary artery emboli. There are CT findings of right heart strain. 2. Enlarged main pulmonary artery which can be seen with pulmonary arterial hypertension. 3. Right lower lobe patchy areas of consolidation which may represent infectio us/inflammatory process or pulmonary infarct. Small right pleural effusion. Assessment & Plan - Diagnosis (1) Pulmonary embolism Qualifiers: Pulmonary embolism type: other Chronicity: acute Acute cor pulmonale presence: with acute cor pulmonale Qualified Code(s): I26.09 - Other pulmonary embolism with acute cor pulmonale Is this a current diagnosis for this admission?: Yes Plan: She will continue intravenous heparin for 7 days, this will coincide with the 7- day duration for the loading dose of Eliquis, she will be transitioned to p.o. Eliquis lifelong (2) Paroxysmal atrial fibrillation Is this a current diagnosis for this admission?: Yes Plan: Presently rate controlled (3) S/P craniotomy Is this a current diagnosis for this admission?: Yes (4) T2DM (type 2 diabetes mellitus) Qualifiers: Diabetes mellitus terminal makeup operator insulin use: without terminal makeup operator use Diabetes mellitus complication status: with neurologic complications Diabetes mellitus complication detail: with polyneuropathy Qualified Code(s): E11.42 - Type 2 diabetes mellitus with diabetic polyneuropathy Is this a current diagnosis for this admission?: Yes - Time Time Spent with patient: 25-34 minutes Level of Care: IMCU Medications reviewed and adjusted accordingly: Yes Anticipated discharge: Home Anticipated DC Timeframe: within 72 hours
[2020-02-13] MEDS: PANTOPRAZOLE SODIUM 40 MG TABLET.DR PO SCH (08:51)
[2020-02-13] MEDS: INSULIN REG, HUMAN 100 UNIT/ML 3 ML VIAL (PYX) SUBCUT SCH ×4 (09:17→21:41)
[2020-02-13] MEDS: VENLAFAXINE HCL 75 MG CAP.SR.24H PO SCH (10:50)
[2020-02-13] MEDS: METOPROLOL TARTRATE 50 MG TABLET PO SCH ×2 (10:50→21:41)
[2020-02-13] MEDS: POLYETHYLENE GLYCOL 3350 POWDER 17 GM/1 PACKET PO SCH ×2 (10:50→10:56)
[2020-02-13] MEDS: DIGOXIN 0.125 MG TABLET PO SCH (10:51)
[2020-02-13] MEDS: SUCRALFATE 1 GM TABLET PO SCH ×2 (10:51→21:41)
[2020-02-13] MEDS: ACETAMINOPHEN 325 MG TABLET PO PRN (14:16)
[2020-02-13] MEDS: HEPARIN SODIUM,PORCINE/D5W 25,000 UNIT/250 ML RTUINJ IV PRN (14:19)
--- NOTE | 2020-02-13 19:27 | PDOC PROGRESS REPORT ---
Subjective Date:: 02/13/20 Subjective:: Patient seen by the bedside, she has finished 7-day of IV heparin, She will be s tarted on Eliquis 5 mg p.o. twice daily for life, she be discharge home tomorrow Reason For Visit: SHORTNESS OF BREATH,PULMONARY EMBOLISM ON RIGHT Physical Exam Vital Signs: Temp Pulse Resp BP Pulse Ox 98.5 F 77 18 106/76 93 02/13/20 16:02 02/13/20 16:02 02/13/20 16:02 02/13/20 16:02 02/13/20 16:02 Intake & Output 02/12/20 02/13/20 02/14/20 06:59 06:59 06:59 Intake Total 1438 1235 924 Output Total 1600 601 Balance -162 634 924 Weight 110.6 kg 111.6 kg General appearance: PRESENT: no acute distress Eye exam: PRESENT: PERRLA Respiratory exam: PRESENT: clear to auscultation mey Cardiovascular exam: PRESENT: +S1, +S2 GI/Abdominal exam: PRESENT: soft Neurological exam: PRESENT: alert, CN II-XII grossly intact Results Laboratory Results: 02/12/20 06:28 02/06/20 04:06 02/05/20 02/05/20 02/05/20 13:34 13:34 15:49 Creatine Kinase 46 CK-MB (CK-2) < 0.22 Troponin I < 0.012 < 0.012 02/05/20 02/05/20 02/06/20 22:30 22:30 04:06 Creatine Kinase 28 L 28 L CK-MB (CK-2) < 0.22 Troponin I < 0.012 02/06/20 02/06/20 02/06/20 04:06 09:58 09:58 Creatine Kinase 23 L CK-MB (CK-2) < 0.22 < 0.22 Troponin I < 0.012 < 0.012 Impressions: Chest X-Ray 02/05/20 00:00 IMPRESSION: Right lower lobe airspace disease consistent with pneumonia. Stable mild cardiomegaly. Head CT 02/05/20 00:00 IMPRESSION: 1. Large area of encephalomalacia and gliosis consistent with prior right frontoparietal infarct, stable. No evidence of acute intracranial hemorrhage, mass, mass effect, or evidence of acute territorial infarct. . 2. Right frontoparietal craniotomy stable. EVIDENCE OF ACUTE STROKE: NO. Chest/Abdomen CTA 02/05/20 15:59 IMPRESSION: 1. Extensive right pulmonary artery emboli. There are CT findings of right heart strain. 2. Enlarged main pulmonary artery which can be seen with pulmonary arterial hypertension. 3. Right lower lobe patchy areas of consolidation which may represent infectious/inflammatory process or pulmonary infarct. Small right pleural effusion. Assessment & Plan - Diagnosis (1) Pulmonary embolism Qualifiers: Pulmonary embolism type: other Chronicity: acute Acute cor pulmonale presence: with acute cor pulmonale Qualified Code(s): I26.09 - Other pulmonary embolism with acute cor pulmonale Is this a current diagnosis for this admission?: Yes Plan: Start Eliquis (2) Paroxysmal atrial fibrillation Is this a current diagnosis for this admission?: Yes Plan: Presently rate controlled (3) S/P craniotomy Is this a current diagnosis for this admission?: Yes (4) T2DM (type 2 diabetes mellitus) Qualifiers: Diabetes mellitus custodial insulin use: without custodial use Diabetes mellitus complication status: with neurologic complications Diabetes mellitus complication detail: with polyneuropathy Qualified Code(s): E11.42 - Type 2 diabetes mellitus with diabetic polyneuropathy Is this a current diagnosis for this admission?: Yes - Time Time Spent with patient: 15-24 minutes Level of Care: MEDICAL Medications reviewed and adjusted accordingly: Yes Anticipated discharge: Home - Inpatient Certification Based on my medical assessment, after consideration of the patient's comorbidities, presenting symptoms, or acuity I expect that the services needed warrant INPATIENT care.: Yes I certify that my determination is in accordance with my understanding of Medicare's requirements for reasonable and necessary INPATIENT services [42 CFR 412.3e].: Yes
--- NOTE | 2020-02-13 19:31 | PDOC DISCHARGE SUMMARY ---
Impression - Admit/DC Date/PCP Admission Date/Primary Care Provider: 02/05/20 18:50 AARTI MORRISON MD Discharge Date: 02/14/20 - Discharge Diagnosis (1) Pulmonary embolism Is this a current diagnosis for this admission?: Yes (2) Paroxysmal atrial fibrillation Is this a current diagnosis for this admission?: Yes (3) S/P craniotomy Is this a current diagnosis for this admission?: Yes (4) T2DM (type 2 diabetes mellitus) Is this a current diagnosis for this admission?: Yes - Additional Information Referrals: AARTI MORRISON MD [Primary Care Provider] - Follow up as needed Prescriptions: Apixaban [Eliquis 5 mg Tablet] 5 mg PO BID #60 tablet Home Medications: Albuterol Sulfate [Ventolin Hfa 8 gm Mdi] 1 puff IH Q4HP PRN 12/21/19 Montelukast Sodium [Singulair 10 mg Tablet] 10 mg PO QHS 12/21/19 Pantoprazole Sodium [Protonix [address] Tablet] 40 mg PO QAM 12/21/19 Pravastatin Sodium 40 mg PO QHS 12/21/19 Sennosides/Docusate 8.6-50 mg [Senna Plus Tablet] 2 tab PO HSP PRN 12/21/19 Sucralfate [Carafate 1 gm Tablet] 1 gm PO BID 12/21/19 Venlafaxine HCl ER [Effexor Xr 75 mg Cap.sr] 75 mg PO DAILY 12/21/19 Ergocalciferol (Vitamin D2) [Vitamin D2] 50,000 unit PO GIRON@1000 12/28/19 Digoxin [Lanoxin 0.125 mg Tablet] 0.125 mg PO DAILY #90 tablet 01/05/20 Metoprolol Tartrate [Lopressor 50 mg Tablet] 75 mg PO Q12 #60 tablet 01/05/20 Acetaminophen [Tylenol 325 mg Tablet] 650 mg PO Q4HP PRN 02/06/20 Hydrochlorothiazide [Hydrodiuril 12.5 mg Tablet] 12.5 mg PO DAILY 02/06/20 Polyethylene Glycol 3350 [Miralax Powder 17 gm/Packet] 17 gm PO DAILY 02/06/20 Apixaban [Eliquis 5 mg Tablet] 5 mg PO BID #60 tablet 02/13/20 Glucagon,Human Recombinant [Glucagen Inj 1 mg Vial] 1 mg IM PRN PRN vial 02/13/20 Heparin Sodium,Porcine [Heparin Inj 1,000 Unit/ml 10 ml Vial] 0 - 15,000 unit IV .BOLUS PER PROTOCOL PRN vial 02/13/20 Insulin Regular, Human [Humulin R (Reg) Insulin 100 unit/mL] 0 - 12 unit SUBCUT ACHS unit 02/13/20 Physical Exam Vital Signs: Temp Pulse Resp BP Pulse Ox 98.5 F 77 18 106/76 93 02/13/20 16:02 02/13/20 16:02 02/13/20 16:02 02/13/20 16:02 02/13/20 16:02 Intake & Output 02/12/20 02/13/20 02/14/20 06:59 06:59 06:59 Intake Total 1438 1235 924 Output Total 1600 601 Balance -162 634 924 Weight 110.6 kg 111.6 kg Results Laboratory Results: WBC 9.0 10^3/uL (4.0-10.5) 02/12/20 06:28 RBC 4.45 10^6/uL (3.72-5.28) 02/12/20 06:28 Hgb 11.8 g/dL (12.0-15.5) L 02/12/20 06:28 Hct 35.3 % (36.0-47.0) L 02/12/20 06:28 MCV 80 fl (80-97) 02/12/20 06:28 MCH 26.5 pg (27.0-33.4) L 02/12/20 06:28 MCHC 33.4 g/dL (32.0-36.0) 02/12/20 06:28 RDW 17.5 % (11.5-14.0) H 02/12/20 06:28 Plt Count 300 10^3/uL (150-450) 02/12/20 06:28 Lymph % (Auto) 19.0 % (13-45) 02/05/20 22:30 [place] % (Auto) 8.0 % (3-13) 02/05/20 22:30 Eos % (Auto) 1.6 % (0-6) 02/05/20 22:30 Baso % (Auto) 0.3 % (0-2) 02/05/20 22:30 Absolute Neuts (auto) 8.5 10^3/uL (1.7-8.2) H 02/05/20 22:30 Absolute Lymphs (auto) 2.3 10^3/uL (0.5-4.7) 02/05/20 22:30 Absolute Monos (auto) 1.0 10^3/uL (0.1-1.4) 02/05/20 22:30 Absolute Eos (auto) 0.2 10^3/uL (0.0-0.6) 02/05/20 22:30 Absolute Basos (auto) 0.0 10^3/uL (0.0-0.2) 02/05/20 22:30 Seg Neutrophils % 71.1 % (42-78) 02/05/20 22:30 PT 16.0 SEC (11.4-15.4) H 02/05/20 22:30 INR 1.27 02/05/20 22:30 APTT 77.9 SEC (23.5-35.8) H 02/13/20 05:57 Sodium 140.0 mmol/L (137-145) 02/06/20 04:06 Potassium 3.6 mmol/L (3.6-5.0) 02/06/20 04:06 Chloride 104 mmol/L (98-107) 02/06/20 04:06 Carbon Dioxide 24 mmol/L (22-30) 02/06/20 04:06 Anion Gap 12 (5-19) 02/06/20 04:06 BUN 11 mg/dL (7-20) 02/06/20 04:06 Creatinine 0.49 mg/dL (0.52-1.25) L 02/06/20 04:06 Est GFR ( Amer) > 60 (>60) 02/06/20 04:06 Est GFR (MDRD) Non-Af > 60 (>60) 02/06/20 04:06 Glucose 159 mg/dL (75-110) H 02/06/20 04:06 POC Glucose 139 mg/dL (70-110) H 02/13/20 16:05 Hemoglobin A1c % 5.8 % (4.7-6.0) 02/06/20 04:06 Lactic Acid 1.5 mmol/L (0.7-2.1) 02/05/20 13:02 Calcium 9.1 mg/dL (8.4-10.2) 02/06/20 04:06 Phosphorus 4.8 mg/dL (2.5-4.5) H 02/05/20 22:30 Magnesium 2.0 mg/dL (1.6-2.3) 02/05/20 22:30 Total Bilirubin 0.4 mg/dL (0.2-1.3) 02/06/20 04:06 Direct Bilirubin 0.2 mg/dL (0.0-0.4) 02/06/20 04:06 Neonat Total Bilirubin Not Reportable 02/06/20 04:06 Neonat Direct Bilirubin Not Reportable 02/06/20 04:06 Neonat Indirect Bili Not Reportable 02/06/20 04:06 AST 17 U/L (14-36) 02/06/20 04:06 ALT 9 U/L (<35) 02/06/20 04:06 Alkaline Phosphatase 80 U/L (38-126) 02/06/20 04:06 Ammonia 9.0 umol/L (9-33) 02/05/20 22:30 Creatine Kinase 23 U/L (30-135) L 02/06/20 09:58 CK-MB (CK-2) < 0.22 ng/mL (<4.55) 02/06/20 09:58 Troponin I < 0.012 ng/mL 02/06/20 09:58 Total Protein 6.9 g/dL (6.3-8.2) 02/06/20 04:06 Albumin 3.4 g/dL (3.5-5.0) L 02/06/20 04:06 Triglycerides 137 mg/dL (<150) 02/06/20 04:06 Cholesterol 127.77 mg/dL (0-200) 02/06/20 04:06 LDL Cholesterol Direct 70 mg/dL (<100) 02/06/20 04:06 VLDL Cholesterol 27.0 mg/dL (10-31) 02/06/20 04:06 HDL Cholesterol 30 mg/dL (>40) L 02/06/20 04:06 Amylase 41 U/L (30-110) 02/05/20 22:30 Lipase 87.4 U/L (23-300) 02/05/20 22:30 TSH 0.89 uIU/mL (0.47-4.68) 02/05/20 22:30 Free T4 1.81 ng/dL (0.78-2.19) 02/05/20 22:30 Urine Color YELLOW 02/08/20 17:00 Urine Appearance CLEAR 02/08/20 17:00 Urine pH 6.0 (5.0-9.0) 02/08/20 17:00 Ur Specific [place] 1.014 02/08/20 17:00 Urine Protein NEGATIVE mg/dL (NEGATIVE) 02/08/20 17:00 Urine Glucose (UA) NEGATIVE mg/dL (NEGATIVE) 02/08/20 17:00 Urine Ketones NEGATIVE mg/dL (NEGATIVE) 02/08/20 17:00 Urine Blood SMALL (NEGATIVE) H 02/08/20 17:00 Urine Nitrite NEGATIVE (NEGATIVE) 02/08/20 17:00 Urine Bilirubin NEGATIVE (NEGATIVE) 02/08/20 17:00 Urine Urobilinogen NEGATIVE mg/dL (<2.0) 02/08/20 17:00 Ur Leukocyte Esterase NEGATIVE (NEGATIVE) 02/08/20 17:00 Urine WBC (Auto) 2 /HPF 02/08/20 17:00 Urine RBC (Auto) 1 /HPF 02/08/20 17:00 U Hyaline Cast (Auto) 1 /LPF 02/06/20 03:00 Squamous Epi Cells Auto 3 /HPF 02/06/20 03:00 Calcium Oxalate Cr Auto FEW /HPF 02/08/20 17:00 Urine Mucus (Auto) RARE /LPF 02/08/20 17:00 Urine Ascorbic Acid NEGATIVE (NEGATIVE) 02/08/20 17:00 Digoxin 0.48 ng/mL (0.8-2.0) L 02/12/20 06:28 Urine Opiates Screen NEGATIVE 02/06/20 03:00 Urine Methadone Screen NEGATIVE 02/06/20 03:00 Ur Barbiturates Screen NEGATIVE 02/06/20 03:00 Ur Phencyclidine Scrn NEGATIVE 02/06/20 03:00 Ur Amphetamines Screen NEGATIVE 02/06/20 03:00 U Benzodiazepines Scrn NEGATIVE 02/06/20 03:00 Urine Cocaine Screen NEGATIVE 02/06/20 03:00 U Marijuana (THC) Screen UNCONFIRMED POSITIVE 02/06/20 03:00 Influenza A (RT-PCR) NEGATIVE (NEGATIVE) 02/05/20 18:46 Influenza B (RT-PCR) NEGATIVE (NEGATIVE) 02/05/20 18:46 RSV (RT-PCR) NEGATIVE (NEGATIVE) 02/05/20 18:46 SARS-CoV-2 Rap RNA(RT-PCR) NEGATIVE (NEGATIVE) 02/05/20 18:46 02/05/20 02/05/20 02/05/20 13:34 15:49 22:30 CK-MB (CK-2) < 0.22 < 0.22 Troponin I < 0.012 < 0.012 < 0.012 02/06/20 02/06/20 04:06 09:58 CK-MB (CK-2) < 0.22 < 0.22 Troponin I < 0.012 < 0.012 Impressions: Chest X-Ray 02/05/20 00:00 IMPRESSION: Right lower lobe airspace disease consistent with pneumonia. Stable mild cardiomegaly. Head CT 02/05/20 00:00 IMPRESSION: 1. Large area of encephalomalacia and gliosis consistent with prior right frontoparietal infarct, stable. No evidence of acute intracranial hemorrhage, mass, mass effect, or evidence of acute territorial infarct. . 2. Right frontoparietal craniotomy stable. EVIDENCE OF ACUTE STROKE: NO. Chest/Abdomen CTA 02/05/20 15:59 IMPRESSION: 1. Extensive right pulmonary artery emboli. There are CT findings of right heart strain. 2. Enlarged main pulmonary artery which can be seen with pulmonary arterial hypertension. 3. Right lower lobe patchy areas of consolidation which may represent infectious/inflammatory process or pulmonary infarct. Small right pleural effusion.
[2020-02-13] MEDS: ATORVASTATIN CALCIUM 10 MG TABLET PO SCH (21:41)
[2020-02-13] MEDS: APIXABAN 5 MG TABLET PO SCH (21:41)
[2020-02-13] MEDS: MONTELUKAST SODIUM 10 MG TABLET PO SCH (22:00)
[2020-02-14 00:33] LABS: APPEARANCE,URINE SLIGHTLY-CLOUDY; BILIRUBIN,URINE NEGATIVE (NEGATIVE); CALCIUM OXALATE CRYSTALS,URINE FEW /HPF; COLOR,URINE YELLOW; GLUCOSE, URINE NEGATIVE (NEGATIVE); KETONES,URINE NEGATIVE (NEGATIVE); LEUKOCYTE ESTERASE,URINE NEGATIVE (NEGATIVE); NITRITE,URINE NEGATIVE (NEGATIVE); PROTEIN,URINE NEGATIVE (NEGATIVE); URINE SPECIFIC GRAVITY 1.027
[2020-02-14] MEDS: INSULIN REG, HUMAN 100 UNIT/ML 3 ML VIAL (PYX) SUBCUT SCH (08:11)
[2020-02-14] MEDS: METOPROLOL TARTRATE 50 MG TABLET PO SCH (09:04)
[2020-02-14] MEDS: DIGOXIN 0.125 MG TABLET PO SCH (09:07)
[2020-02-14] MEDS: SUCRALFATE 1 GM TABLET PO SCH (09:07)
[2020-02-14] MEDS: VENLAFAXINE HCL 75 MG CAP.SR.24H PO SCH (09:08)
[2020-02-14] MEDS: PANTOPRAZOLE SODIUM 40 MG TABLET.DR PO SCH (09:08)
[2020-02-14] MEDS: APIXABAN 5 MG TABLET PO SCH (09:08)
[2020-02-14] MEDS: POLYETHYLENE GLYCOL 3350 POWDER 17 GM/1 PACKET PO SCH (09:09)
[2020-02-14 09:44] VITALS: BP 150/82
--- NOTE | 2020-02-14 18:09 | PDOC DISCHARGE SUMMARY ---
Impression - Admit/DC Date/PCP Admission Date/Primary Care Provider: 02/05/20 18:50 AARTI MORRISON MD Discharge Date: 02/14/20 - Discharge Diagnosis (1) Pulmonary embolism Is this a current diagnosis for this admission?: Yes (2) Paroxysmal atrial fibrillation Is this a current diagnosis for this admission?: Yes (3) S/P craniotomy Is this a current diagnosis for this admission?: Yes (4) T2DM (type 2 diabetes mellitus) Is this a current diagnosis for this admission?: Yes - Additional Information Referrals: AARTI MORRISON MD [Primary Care Provider] - 02/20/20 2:30 pm Prescriptions: RX: Apixaban [Eliquis 5 mg Tablet] 5 mg PO BID #60 tablet Home Medications: RX: Albuterol Sulfate [Ventolin Hfa 8 gm Mdi] 1 puff IH Q4HP PRN 12/21/19 RX: Montelukast Sodium [Singulair 10 mg Tablet] 10 mg PO QHS 12/21/19 RX: Pantoprazole Sodium [Protonix [address] Tablet] 40 mg PO QAM 12/21/19 RX: Pravastatin Sodium 40 mg PO QHS 12/21/19 RX: Sennosides/Docusate 8.6-50 mg [Senna Plus Tablet] 2 tab PO HSP PRN 12/21/19 RX: Sucralfate [Carafate 1 gm Tablet] 1 gm PO BID 12/21/19 RX: Venlafaxine HCl ER [Effexor Xr 75 mg Cap.sr] 75 mg PO DAILY 12/21/19 RX: Ergocalciferol (Vitamin D2) [Vitamin D2] 50,000 unit PO GIRON@1000 12/28/19 RX: Digoxin [Lanoxin 0.125 mg Tablet] 0.125 mg PO DAILY #90 tablet 01/05/20 RX: Metoprolol Tartrate [Lopressor 50 mg Tablet] 75 mg PO Q12 #60 tablet 01/05/20 RX: Acetaminophen [Tylenol 325 mg Tablet] 650 mg PO Q4HP PRN 02/06/20 RX: Hydrochlorothiazide [Hydrodiuril 12.5 mg Tablet] 12.5 mg PO DAILY 02/06/20 RX: Polyethylene Glycol 3350 [Miralax Powder 17 gm/Packet] 17 gm PO DAILY 02/06/20 RX: Apixaban [Eliquis 5 mg Tablet] 5 mg PO BID #60 tablet 02/13/20 RX: Glucagon,Human Recombinant [Glucagen Inj 1 mg Vial] 1 mg IM PRN PRN vial 02/13/20 RX: Heparin Sodium,Porcine [Heparin Inj 1,000 Unit/ml 10 ml Vial] 0 - 15,000 unit IV .BOLUS PER PROTOCOL PRN vial 02/13/20 RX: Insulin Regular, Human [Humulin R (Reg) Insulin 100 unit/mL] 0 - 12 unit SUBCUT ACHS unit 02/13/20 History of Present Illiness History of Present Illness: YESENIA HIGGINS is a 64 year old female, She had a stroke on 12/04/2019 while she was in [place], this was treated with thrombolytic followed by thrombectomy complicated with cerebral edema and midline shift treated with decompressive hemicraniotomy on 12/05/2019. She was admitted previously for evaluation and management of paroxysmal atrial fibrillation with rapid ventricular response.She came to the emergency room for evaluation of shortness of breath, hemoptysis, she said the symptoms has progressively worsen in the last couple of days. In the emergency room she had CT angiogram of the chest, it demonstrated patchy areas of consolidation in the right lower lobe with a small left pleural effusion also found was extensive filling defect in the right main, upper, middle , and lower lobe, lobar and segmental pulmonary arteries, small amount of thrombus in the left lower lobe pulmonary artery. A rapid SARS-CoV-2 test was negative, a confirmatory PCR test was also negative. Hospital Course Hospital Course: Patient was admitted for the management of pulmonary embolism, she was treated with intravenous heparin for 7 days. She will transition to p.o. Eliquis lifelong. She had a massive pulmonary embolism, she is status post craniotomy in November due to a stroke.The hospital course was uneventful there was no bleed for the last 7 days. The 7 days of the IV heparin correlate with a 7 days duration for the loading dose of Eliquis. Intravenous heparin is preferred because of the large clot burden. Physical Exam Vital Signs: Temp Pulse Resp BP Pulse Ox 98.6 F 88 18 150/82 H 97 02/14/20 09:43 02/14/20 09:43 02/14/20 09:43 02/14/20 09:43 02/14/20 09:43 Intake & Output 02/13/20 02/14/20 02/15/20 06:59 06:59 06:59 Intake Total 1235 1081 Output Total 601 200 Balance 634 881 Weight 111.6 kg 112.6 kg General appearance: PRESENT: no acute distress Eye exam: PRESENT: PERRLA Respiratory exam: PRESENT: clear to auscultation mey Cardiovascular exam: PRESENT: +S1, +S2 GI/Abdominal exam: PRESENT: soft Neurological exam: PRESENT: alert Results Laboratory Results: WBC 9.0 10^3/uL (4.0-10.5) 02/12/20 06:28 RBC 4.45 10^6/uL (3.72-5.28) 02/12/20 06:28 Hgb 11.8 g/dL (12.0-15.5) L 02/12/20 06:28 Hct 35.3 % (36.0-47.0) L 02/12/20 06:28 MCV 80 fl (80-97) 02/12/20 06:28 MCH 26.5 pg (27.0-33.4) L 02/12/20 06:28 MCHC 33.4 g/dL (32.0-36.0) 02/12/20 06:28 RDW 17.5 % (11.5-14.0) H 02/12/20 06:28 Plt Count 300 10^3/uL (150-450) 02/12/20 06:28 Lymph % (Auto) 19.0 % (13-45) 02/05/20 22:30 [place] % (Auto) 8.0 % (3-13) 02/05/20 22:30 Eos % (Auto) 1.6 % (0-6) 02/05/20 22:30 Baso % (Auto) 0.3 % (0-2) 02/05/20 22:30 Absolute Neuts (auto) 8.5 10^3/uL (1.7-8.2) H 02/05/20 22:30 Absolute Lymphs (auto) 2.3 10^3/uL (0.5-4.7) 02/05/20 22:30 Absolute Monos (auto) 1.0 10^3/uL (0.1-1.4) 02/05/20 22:30 Absolute Eos (auto) 0.2 10^3/uL (0.0-0.6) 02/05/20 22:30 Absolute Basos (auto) 0.0 10^3/uL (0.0-0.2) 02/05/20 22:30 Seg Neutrophils % 71.1 % (42-78) 02/05/20 22:30 PT 16.0 SEC (11.4-15.4) H 02/05/20 22:30 INR 1.27 02/05/20 22:30 APTT 77.9 SEC (23.5-35.8) H 02/13/20 05:57 Sodium 140.0 mmol/L (137-145) 02/06/20 04:06 Potassium 3.6 mmol/L (3.6-5.0) 02/06/20 04:06 Chloride 104 mmol/L (98-107) 02/06/20 04:06 Carbon Dioxide 24 mmol/L (22-30) 02/06/20 04:06 Anion Gap 12 (5-19) 02/06/20 04:06 BUN 11 mg/dL (7-20) 02/06/20 04:06 Creatinine 0.49 mg/dL (0.52-1.25) L 02/06/20 04:06 Est GFR ( Amer) > 60 (>60) 02/06/20 04:06 Est GFR (MDRD) Non-Af > 60 (>60) 02/06/20 04:06 Glucose 159 mg/dL (75-110) H 02/06/20 04:06 POC Glucose 149 mg/dL (70-110) H 02/14/20 07:54 Hemoglobin A1c % 5.8 % (4.7-6.0) 02/06/20 04:06 Lactic Acid 1.5 mmol/L (0.7-2.1) 02/05/20 13:02 Calcium 9.1 mg/dL (8.4-10.2) 02/06/20 04:06 Phosphorus 4.8 mg/dL (2.5-4.5) H 02/05/20 22:30 Magnesium 2.0 mg/dL (1.6-2.3) 02/05/20 22:30 Total Bilirubin 0.4 mg/dL (0.2-1.3) 02/06/20 04:06 Direct Bilirubin 0.2 mg/dL (0.0-0.4) 02/06/20 04:06 Neonat Total Bilirubin Not Reportable 02/06/20 04:06 Neonat Direct Bilirubin Not Reportable 02/06/20 04:06 Neonat Indirect Bili Not Reportable 02/06/20 04:06 AST 17 U/L (14-36) 02/06/20 04:06 ALT 9 U/L (<35) 02/06/20 04:06 Alkaline Phosphatase 80 U/L (38-126) 02/06/20 04:06 Ammonia 9.0 umol/L (9-33) 02/05/20 22:30 Creatine Kinase 23 U/L (30-135) L 02/06/20 09:58 CK-MB (CK-2) < 0.22 ng/mL (<4.55) 02/06/20 09:58 Troponin I < 0.012 ng/mL 02/06/20 09:58 Total Protein 6.9 g/dL (6.3-8.2) 02/06/20 04:06 Albumin 3.4 g/dL (3.5-5.0) L 02/06/20 04:06 Triglycerides 137 mg/dL (<150) 02/06/20 04:06 Cholesterol 127.77 mg/dL (0-200) 02/06/20 04:06 LDL Cholesterol Direct 70 mg/dL (<100) 02/06/20 04:06 VLDL Cholesterol 27.0 mg/dL (10-31) 02/06/20 04:06 HDL Cholesterol 30 mg/dL (>40) L 02/06/20 04:06 Amylase 41 U/L (30-110) 02/05/20 22:30 Lipase 87.4 U/L (23-300) 02/05/20 22:30 TSH 0.89 uIU/mL (0.47-4.68) 02/05/20 22:30 Free T4 1.81 ng/dL (0.78-2.19) 02/05/20 22:30 Urine Color YELLOW 02/13/20 23:26 Urine Appearance SLIGHTLY-CLOUDY 02/13/20 23:26 Urine pH 5.0 (5.0-9.0) 02/13/20 23:26 Ur Specific [place] 1.027 02/13/20 23:26 Urine Protein NEGATIVE mg/dL (NEGATIVE) 02/13/20 23: Urine Glucose (UA) NEGATIVE mg/dL (NEGATIVE) 02/13/20 23: Urine Ketones NEGATIVE mg/dL (NEGATIVE) 02/13/20 23:26 Urine Blood NEGATIVE (NEGATIVE) 02/13/20 23: Urine Nitrite NEGATIVE (NEGATIVE) 02/13/20 23: Urine Bilirubin NEGATIVE (NEGATIVE) 02/13/20 23: Urine Urobilinogen 2.0 mg/dL (<2.0) H 02/13/20 23:26 Ur Leukocyte Esterase NEGATIVE (NEGATIVE) 02/13/20 23: Urine WBC (Auto) 2 /HPF 02/13/20 23:26 Urine RBC (Auto) 1 /HPF 02/13/20 23: U Hyaline Cast (Auto) 1 /LPF 02/06/20 03:00 Urine Bacteria (Auto) 3+ /HPF 02/13/20 23: Squamous Epi Cells Auto 3 /HPF 02/13/20 23:26 Calcium Oxalate Cr Auto FEW /HPF 02/13/20 23:26 Urine Mucus (Auto) RARE /LPF 02/08/20 17:00 Urine Ascorbic Acid NEGATIVE (NEGATIVE) 02/13/20 23: Digoxin 0.48 ng/mL (0.8-2.0) L 02/12/20 06:28 Urine Opiates Screen NEGATIVE 02/06/20 03:00 Urine Methadone Screen NEGATIVE 02/06/20 03:00 Ur Barbiturates Screen NEGATIVE 02/06/20 03:00 Ur Phencyclidine Scrn NEGATIVE 02/06/20 03:00 Ur Amphetamines Screen NEGATIVE 02/06/20 03:00 U Benzodiazepines Scrn NEGATIVE 02/06/20 03:00 Urine Cocaine Screen NEGATIVE 02/06/20 03:00 U Marijuana (THC) Screen UNCONFIRMED POSITIVE 02/06/20 03:00 Influenza A (RT-PCR) NEGATIVE (NEGATIVE) 02/05/20 18:46 Influenza B (RT-PCR) NEGATIVE (NEGATIVE) 02/05/20 18:46 RSV (RT-PCR) NEGATIVE (NEGATIVE) 02/05/20 18:46 SARS-CoV-2 Rap RNA(RT-PCR) NEGATIVE (NEGATIVE) 02/05/20 18:46 02/05/20 02/05/20 02/05/20 13:34 15:49 22:30 CK-MB (CK-2) < 0.22 < 0.22 Troponin I < 0.012 < 0.012 < 0.012 02/06/20 02/06/20 04:06 09:58 CK-MB (CK-2) < 0.22 < 0.22 Troponin I < 0.012 < 0.012 Impressions: Chest X-Ray 02/05/20 00:00 IMPRESSION: Right lower lobe airspace disease consistent with pneumonia. Stable mild cardiomegaly. Head CT 02/05/20 00:00 IMPRESSION: 1. Large area of encephalomalacia and gliosis consistent with prior right frontoparietal infarct, stable. No evidence of acute intracranial hemorrhage, mass, mass effect, or evidence of acute territorial infarct. . 2. Right frontoparietal craniotomy stable. EVIDENCE OF ACUTE STROKE: NO. Chest/Abdomen CTA 02/05/20 15:59 IMPRESSION: 1. Extensive right pulmonary artery emboli. There are CT findings of right heart strain. 2. Enlarged main pulmonary artery which can be seen with pulmonary arterial hypertension. 3. Right lower lobe patchy areas of consolidation which may represent infectious/inflammatory process or pulmonary infarct. Small right pleural effusion. Stroke Is this a Stroke Patient?: No Acute Heart Failure Is this a Heart Failure Patient?: No
== END 2020-02-14 09:46 | disposition home or self-care (01) | DRG 175 ==
LOC: ER 12:43 → EH 18:50 → 3W 02-06 05:01 → 3S 02-10 00:55
PROVIDERS: ADMIT Internal Medicine; ATTEND Internal Medicine
DX: I26.09 Other pulmonary embolism with acute cor pulmonale (principal); I69.354 Hemiplegia and hemiparesis following cerebral infarction affecting left non-dominant side; I48.0 Paroxysmal atrial fibrillation; I10 Essential (primary) hypertension; F32.9 Major depressive disorder, single episode, unspecified; B95.8 Unspecified staphylococcus as the cause of diseases classified elsewhere; E11.42 Type 2 diabetes mellitus with diabetic polyneuropathy; I69.398 Other sequelae of cerebral infarction; Z20.828 Contact with and (suspected) exposure to other viral communicable diseases; G93.89 Other specified disorders of brain; Z79.82 Long term (current) use of aspirin; Z79.899 Other long term (current) drug therapy; Z88.6 Allergy status to analgesic agent; Z88.8 Allergy status to other drugs, medicaments and biological substances
CPT/HCPCS: 36415; 70450; 71045; 71275; 80053; 80061; 80162; 80307; 81001; 82140; 82150; 82550; 82553; 82962; 83036; 83605; 83690; 83735; 84100; 84439; 84443; 84484; 85025; 85027; 85610; 85730; 87040; 87077; 87150; 87186; 93005; 93010; 94640; 96365; 96375; 99285; 0241U; C9803; J0696; J1644; J1815; J3490; J7613